=== PATIENT | female | born 1970 | race Caucasian/White ===

== ENCOUNTER 2023-10-17 15:35 | Emergency (ER) | payer BC, SELFPAY ==
[2023-10-17 15:38] VITALS: BP 127/80
--- NOTE | 2023-10-17 16:57 | ED.GENMED ---
History of Present Illness
<Sourav Crowe MD - Last Filed: 10/17/23 22:04>
General
Chief Complaint: Breathing Problem
Time Seen by Provider: 10/17/23 16:35
Travel History
Have you had any contact with someone who has COVID-19?: No
Do you have any symptoms of coronavirus? Fever > 100 degrees, chills, cough, shortness of breath, sore throat, loss of taste or smell, muscle aches, or headache?: No
<Clare Gonsalves PA-C - Last Filed: 10/17/23 22:23>
General
Source: patient
Exam Limitations: none
Nursing documentation reviewed up to this point in time: agreed with
History of Present Illness
History of Present Illness:
Patient is a 53-year-old female currently undergoing treatment for stage IV rectal cancer, history of DVT/PE presenting for evaluation of worsening shortness of breath. Symptoms started approximate last Tuesday and have been worsening since.
Symptoms are present both at rest and with exertion. She is having some epigastric abdominal pain and has had a few episodes of vomiting. She also endorses recent episode of constipation. She did take a laxative last night and was able to have
multiple bowel movements throughout the night. She does endorse some improvement in the symptoms since. She has had 2 episodes of blood in her stool last week but none over the past few days. She denies any chest pain, fever, urinary symptoms.
She denies any pain, swelling, redness in lower extremities. No recent travel
Of note�patient recently started an experimental trial for rectal cancer with infusions. She is unsure if the symptoms may be related to medication that she is receiving. She does report that the experimental trial drug her heart rate has
increased almost 30 bpm
Patient has had a history of a PE after hysterectomy many years ago. She is no longer on a blood thinner.
<Clare Gonsalves PA-C - Last Filed: 10/17/23 22:23>
Physical Exam
Physical Exam:
General: Chronically ill-appearing, nontoxic
Vitals: Tachycardic, otherwise vital signs stable afebrile O2 sat 99 on room air
HEENT: Atraumatic, normocephalic; pupils equal round reactive light bilaterally, sclera nonicteric bilaterally protecting airway
Neck: appears supple, no JVD
CV: Tachycardic, regular rhythm, no evidence of cyanosis
Resp: No evidence of respiratory distress, lungs clear bilaterally with out any wheezing, rales, rhonchi
Abd: Soft, mildly tender in epigastric region without rebound or guarding, bowel sounds present, non-distended; no CVA tenderness
Extremities: No deformities, no evidence of cyanosis or edema; DP pulses palpable and equal bilaterally
Neuro: alert and oriented x [address], speech normal, no focal motor deficit
Psych: Normal affect
Skin: Intact
Scores
<Sourav Crowe MD - Last Filed: 10/17/23 22:04>
PE Wells Score
Symptoms of DVT: No
No alternative diagnosis better explains the illness: No
Tachycardia with pulse > 100: Yes
Immobilization (>=3 days) or surgery within previous 4 weeks: No
Prior history of DVT or pulmonary embolism: Yes
Presence of hemoptysis: No
Presence of malignancy: Yes
Pulmonary Embolism Risk Score: 4.0
Probability of PE: Pt is moderate risk
<Clare Gonsalves PA-C - Last Filed: 10/17/23 22:23>
Heart Failure Risk
Heart Failure Risk Score: Not Applicable
PE Wells Score
Pulmonary Embolism Risk Score: 4.0
Probability of PE: Pt is moderate risk
PERC Rule Criteria
Age <50 years: No
HR <100 bpm: No
Room air oxygen sat >94%: Yes
History of DVT or PE: Yes
Recent trauma or surgery: No
Hemoptysis: No
Exogenous estrogen: No
Clinical signs suggestive of DVT: No
: No
Considered low risk for PE: No
PERC Score: 4
PE can be excluded by PERC: No
Course
<Sourav Crowe MD - Last Filed: 10/17/23 22:04>
Orders/Labs/Results
Orders:
Orders
10/17/23 15:41
Electrocardiogram (*1) Urgent
Reason for Study: Shortness of Breath
EKG- Treatment ONCE
10/17/23 17:04
Electrocardiogram (*1) Urgent
Reason for Study: Abdominal Pain
EKG- Treatment ONCE
10/17/23 17:05
CT Chest Pe Study Urgent
Comment:
Reason For Exam: Shortness of breath, hx PE, current malignancy
0.9% Sodium Chloride 1000 ml [Nss] 1,000 ml IV BOLUS
10/17/23 17:18
Complete Blood Count/With Diff Urgent
Comprehensive Metabolic Panel Urgent
Lipase Urgent
NT-proBNP Urgent
PTT Urgent
Prothrombin Time Urgent
Troponin I Urgent
10/17/23 18:43
Alteplase [Cathflo/Activase] 2 mg IV NOW STA
Abnormal Lab Results
10/17/23
17:18
RBC 3.13 L 10^6/uL
(4.20-5.40)
Hgb 9.0 L g/dL
(12.0-16.0)
Hct 27.1 L %
(37.0-47.0)
Absolute Lymphs (auto) 0.8 L 10^3/uL
(1.2-3.4)
Absolute Monos (auto) 0.8 H 10^3/uL
(0.1-0.6)
Lymphocytes % 16.2 L %
(20.5-51.1)
Monocytes % 16.0 H %
(1.7-9.3)
PT 16.2 H Sec
(11.4-14.6)
Sodium 133 L mmol/L
(135-145)
Creatinine 0.4 L mg/dL
(0.6-1.0)
Glucose 109 H mg/dl
(70-99)
Calcium 8.3 L mg/dl
(8.4-10.2)
Alkaline Phosphatase 264 H U/L
(38-126)
10/17/23 17:18
10/17/23 17:18
Vital Signs
Pulse: 103
Initial and Last Documented VS:
Initial Vital Signs
Temp Pulse Resp BP Pulse Ox
99.2 F 129 18 127/80 99
10/17/23 15:38 10/17/23 15:38 10/17/23 15:38 10/17/23 15:38 10/17/23 15:38
Last Documented Vital Signs
Temp Pulse Resp BP Pulse Ox
37.3 C 103 18 123/71 99
10/17/23 15:38 10/17/23 21:58 10/17/23 20:51 10/17/23 20:51 10/17/23 20:51
<Clare Gonsalves PA-C - Last Filed: 10/17/23 22:23>
Orders/Labs/Results
Orders:
Orders
10/17/23 15:41
Electrocardiogram (*1) Urgent
Reason for Study: Shortness of Breath
EKG- Treatment ONCE
10/17/23 17:04
Electrocardiogram (*1) Urgent
Reason for Study: Abdominal Pain
EKG- Treatment ONCE
10/17/23 17:05
CT Chest Pe Study Urgent
Comment:
Reason For Exam: Shortness of breath, hx PE, current malignancy
0.9% Sodium Chloride 1000 ml [Nss] 1,000 ml IV BOLUS
10/17/23 17:18
Complete Blood Count/With Diff Urgent
Comprehensive Metabolic Panel Urgent
Lipase Urgent
NT-proBNP Urgent
PTT Urgent
Prothrombin Time Urgent
Troponin I Urgent
10/17/23 18:43
Alteplase [Cathflo/Activase] 2 mg IV NOW STA
Abnormal Lab Results
10/17/23
17:18
RBC 3.13 L 10^6/uL
(4.20-5.40)
Hgb 9.0 L g/dL
(12.0-16.0)
Hct 27.1 L %
(37.0-47.0)
Absolute Lymphs (auto) 0.8 L 10^3/uL
(1.2-3.4)
Absolute Monos (auto) 0.8 H 10^3/uL
(0.1-0.6)
Lymphocytes % 16.2 L %
(20.5-51.1)
Monocytes % 16.0 H %
(1.7-9.3)
PT 16.2 H Sec
(11.4-14.6)
Sodium 133 L mmol/L
(135-145)
Creatinine 0.4 L mg/dL
(0.6-1.0)
Glucose 109 H mg/dl
(70-99)
Calcium 8.3 L mg/dl
(8.4-10.2)
Alkaline Phosphatase 264 H U/L
(38-126)
10/17/23 17:18
10/17/23 17:18
Vital Signs
Initial and Last Documented VS:
Initial Vital Signs
Temp Pulse Resp BP Pulse Ox
99.2 F 129 18 127/80 99
10/17/23 15:38 10/17/23 15:38 10/17/23 15:38 10/17/23 15:38 10/17/23 15:38
Last Documented Vital Signs
Temp Pulse Resp BP Pulse Ox
37.3 C 103 18 123/71 99
10/17/23 15:38 10/17/23 21:58 10/17/23 20:51 10/17/23 20:51 10/17/23 20:51
<Clare Gonsalves PA-C - Last Filed: 10/17/23 22:23>
MDM/Problems Addressed
Differential Diagnosis Includes:
PE, anemia, metastasis,pleural effusion, pericardial effusion, pneumonia, bronchitis
MDM/Problems Addressed:
Patient is a 53 year old female currently undergoing treatment for stage IV metastatic rectal cancer presenting with worsening dyspnea over the past 5 days. She is also describing a vague upper abdominal discomfort which she is attributing to either
constipation vs metastatic disease. Patient is tachycardic on arrival, but otherwise has stable vital signs. Physical exam as documented above. Hear rate tachycardic, regular rhythm. Lungs clear. No evidence fo DVT on exam. Will check basic labs,
PT/INR, troponin, Pro-bnp. Given history of PE and current risk factors - will check CTA chest. Patient declines analgesia at this time.
CBC significant for anemia with hbg of 9.0. Compared to patients most recent lab work drawn about 1 week ago with hgb of 9.3. Although minorly decreased - I do not suspect this to be the cause of her symptoms. CMP without any clinically significant
abnormalities. Troponin and pro-BNP negative. CTA chest pending.
At this point- case was signed out to attending physician.
Chronic conditions affecting care:
History of DVT/PE, stage IV rectal cancer with metastasis to lung, lymph nodes
<Clare Gonsalves PA-C - Last Filed: 10/17/23 22:23>
*Pulse Oximetry
Patient hypoxic: no
*EKG
Interpreted by ED Provider?: Yes
EKG Intrepretation Date: 10/17/23
Interpretation: abnormal
Comparison EKG: changes noted
Heart Rate: 110
Rate: tachycardiac
Rhythm: sinus
[place]: normal axis
Interval: normal interval
QRS Pattern: low voltage
Ischemia: no ischemia
*Tin Flipper Interpretation
Rate: [place]- N/A
*Critical Care Note
Total Time (30-74mins, 75-104mins- exclusive of procedures): Not Applicable
ED Attending Note
<Sourav Crowe MD - Last Filed: 10/17/23 22:04>
ED Attending Note
Patient seen and examined by attending physician: Yes
ED Attending Note:
HPI: 53-year-old female with past medical history of hyperlipidemia, DVT/PE not on anticoagulation, rectal cancer with extensive metastatic disease who presents to the emergency department for evaluation of shortness of breath. Patient has
metastatic rectal cancer she follows with [facility] here but has been on a clinical trial for treatment at [facility] in [place]. She has been receiving regular infusions last treatment was last week. She says since
her infusion last week she has noticed some increasing shortness of breath. She says that symptoms have been constant and slightly worsening over that period of time. She has not had any chest pain. She has not noticed any edema in her legs. She
denies any significant amount of coughing and has not had a fever or chills. She has had some upper abdominal discomfort which she says could be related to metastatic disease or constipation and has been relatively mild and stable. She did have 1
episode of bloody stools last week but no consistent blood in her stools. She denies any other complaints.
ROS: Positive for shortness of breath, abdominal pain; negative for chest pain, cough, fever, edema
Physical exam:
General: Awake, alert, oriented x3; no acute distress
Head: Normocephalic, atraumatic
Eyes: Conjunctiva normal, sclera anicteric
Throat: Airway intact, handling secretions
Neck: Trachea midline, supple without meningismus
Lungs: Clear to auscultation bilaterally, no wheezing, rales, rhonchi, breathing comfortably with no increased work of breathing, normal respiratory rate, normal pulse ox on room air
Heart: Tachycardia with regular rhythm, no murmurs, gallops, or rubs
Abd: Soft, non distended, nontender to deep palpation with no palpable masses
Neuro: Cranial nerves grossly intact, speech fluid
Skin: no rash
Extremities: No edema in extremities, equal pulses in all extremities
Differential diagnosis: PE, pneumonia, pneumothorax, anemia
Medical decision makin-year-old female presents for evaluation of increasing shortness of breath over the past week or so. She arrived was tachycardic but otherwise normal vitals. Exam as above. Labs were Sof-Yandy CBC which showed slight
anemia to 9.0�patient had lab work drawn as an outpatient last week which showed hemoglobin of 9.3 to this value is stable over the past week. Unlikely to account for symptoms. Her CMP shows no clinically significant abnormalities. Her troponin
and BNP were negative. She was sent for a CTA which showed increase in her pulmonary metastatic disease but no PE or other acute pathology. Increased metastatic disease could account for symptoms. No clear emergent pathology noted on her workup
here patient has remained stable on room air with no tachypnea. Her heart rate improved with some IV fluids. Regarding her abdominal discomfort she thinks it is likely from known metastatic disease and she has no significant tenderness�no
indication for emergent abdominal imaging at this point in time. I long discussion with patient�we offered admission for observation overnight but she feels well enough for discharge and no clear indication for admission at this point in time. I
did discuss with oncology team they recommended follow-up with patient's team at [facility]. Patient indicated that she will call tomorrow. Spoke about return precautions all questions answered.
Chronic conditions affecting care: Metastatic cancer
Acute exacerbation or progression of chronic illness: Acute worsening of pulmonary metastasis
History source: Patient,
Data reviewed: Records, imaging, labs
Medications/testing considered: N/A
Social determinants of health: Strong social support
Discussion with other providers: Oncology
Disposition: Offered admission but patient prefers discharge with outpatient follow-up
-
Portions of this chart may have been created with voice recognition software.� Occasional wrong word or��sound alike� substitutions may have occurred due to the inherent limitations of voice recognition software.
Discharge Plan
Departure
Patient Disposition: Home (Routine Discharge)
Date of Disposition: 10/17/23
Time of Disposition: 21:58
Patient with high blood pressure during this ER visit?: No
Discharge Problem:
Dyspnea
Instructions: Shortness of Breath (Dyspnea) (DC)
Prescriptions:
No Action
ibuprofen [Advil] 200 mg Tablet
600 mg PO Q4H
levothyroxine 25 mcg Tablet
25 mcg PO DAILY
cholecalciferol (vitamin D3) 100 mcg (4,000 unit) Capsule
100 mcg PO DAILY
Patient Comments:
Pt states 1000mgs daily??
tramadol 50 mg tablet
50 - 100 mg PO Q6HPRN PRN (Reason: moderate to severe) Qty: 40 0RF
Ativan
1 tab PO DAILY
Rx Instructions:
when on chemo
polyethylene glycol 3350 [Miralax] 17 gram Powder In Packet
17 g PO DAILY
omeprazole 40 mg Capsule,Delayed Release(Dr/Ec)
40 mg PO DAILY
ondansetron 8 mg Tablet,Disintegrating
8 mg PO Q8H PRN (Reason: nausea)
docusate sodium [Colace] 100 mg Capsule
100 mg PO DAILY
methylprednisolone 4 mg tablet
4 mg PO DAILY 4 Days Qty: 10 0RF
Rx Instructions:
4 tabs on 09/05, 3 tabs on 09/06, 2 tabs on 09/07, 1 tab on 09/08
Referrals:
UNKNOWN - PT DOES,NOT KNOW [Unknown Provider] -
Activity Restrictions/Additional Instructions:
Thank you for visiting the Emergency Department at [facility].
1. Please schedule a follow up appointment as directed. Call first thing tomorrow morning to make an appointment.
2. If indicated, please take your medications as instructed and indicated on discharge paperwork.
3. If any of your symptoms do not improve, or persist, or become more severe within 6-12 hours, please return to the emergency department for further care.
4. Please return to the emergency department if you develop a headache, neck pain/stiffness, fever greater than 100.4F, chest pain, shortness of breath, persistent nausea, vomiting, slurred speech, difficulty walking, numbness/tingling, weakness,
signs of infection or any other symptoms that are worrisome to you.
Please call [phone] if you have any questions.
Interventions
Interventions:
*Risk Screen - Suicide Last Done: 10/17/23 15:38
*General Assessment Last Done: 10/17/23 15:38
*Neglect/Abuse Screening Last Done: 10/17/23 15:38
ED- Fall Risk Assessment Last Done: 10/17/23 16:39
*ED COVID-19 Vaccine History Last Done: 10/17/23 15:38
*Nursing Disposition Last Done: 10/17/23 22:04
ED- Cardiac Assessment Last Done: 10/17/23 16:39
ED- Pulmonary Assessment Last Done: 10/17/23 16:39
[2023-10-17] MEDS: NSS 1000 IV (17:19)
--- NOTE | 2023-10-17 18:07 | VATNOTE ---
extremely difficult to retract enough blood for a waste, flushed multiple times, coughed, right arm moved etc. PCN informed cathflo needed to be ordered and peripheral stick for labs to be drawn.
[2023-10-17 18:09] LABS: % Basophils 0.6 % (0-2); % Immature Granulocytes 0.2 % (0-0.5); % Lymphocytes 16.2 % (20.5-51.1); Absolute Eosinophils 0.1 10^3/uL (0-0.7); Absolute Lymphocytes 0.8 10^3/uL (1.2-3.4); Absolute Monocytes 0.8 10^3/uL (0.1-0.6); Absolute Neutrophils 3.2 10^3/uL (1.4-6.5); Hematocrit 27.1 % (37.0-47.0); Mean Corp Hgb Conc. 33.2 g/dL (33.0-37.0); Mean Corpuscular Hgb 28.8 pg (27.0-31.0); Mean Corpuscular Volume 86.6 fL (81.0-99.0); Mean Platelet Volume 10.1 fL (7.4-10.4); Nucleated Red Blood Cells % 0 %; Platelet Count 156 10^3/uL (130-400); Red Blood Cell Count 3.13 10^6/uL (4.20-5.40); Red Cell Dist. Width 13.2 % (11.5-14.5); White Blood Cell Count 4.9 10^3/uL (4.8-10.8)
[2023-10-17 18:18] LABS: INR 1.32; PT 16.2 Sec (11.4-14.6)
[2023-10-17 18:19] LABS: APTT 28.9 Sec (23.4-35.0)
[2023-10-17 18:26] LABS: ALT (SGPT) 14 U/L (0-35); AST (SGOT) 21 U/L (14-36); Albumin 3.5 g/dl (3.5-5.0); Alkaline Phosphatase 264 U/L (38-126); Blood Urea Nitrogen 13 mg/dl (7-17); Calcium 8.3 mg/dl (8.4-10.2); Carbon Dioxide 25 mmol/L (22-30); Chloride 103 mmol/L (98-107); Glucose 109 mg/dl (70-99); Lipase 35 U/L (23-300); Potassium 4.3 mmol/L (3.5-5.1); Sodium 133 mmol/L (135-145); Total Bilirubin 0.4 mg/dl (0.2-1.3); Total Protein 6.9 g/dl (6.3-8.2); eGFR > 60.00
[2023-10-17 18:32] LABS: NT-proBNP 26.8 pg/ml; Troponin I < 0.012 ng/ml
[2023-10-17] MEDS: CATHFLO/ACTIVASE IV (19:04)
[2023-10-17] MEDS: CATHFLO/ACTIVASE 2 MG IV (19:19)
--- NOTE | 2023-10-17 20:30 | VATNOTE ---
CathFlo given as ordered. Port now flushes easily and has a brisk blood return.
[2023-10-17 20:51] VITALS: BP 123/71
== END 2023-10-17 22:21 | disposition home or self-care (01) ==
LOC: EMR 15:35
PROVIDERS: Physician Assistant; EMERGENCY PHYSICIAN Emergency Medicine; FAMILY PHYSICIAN Family Medicine
DX: R06.09 Other forms of dyspnea (principal); D64.9 Anemia, unspecified; E78.5 Hyperlipidemia, unspecified
CPT/HCPCS: 99285; 96374; 96361; 71275; 80053; 83690; 83880; 84484; 85025; 85610; 85730; 93005; J2997; Q9967

== ENCOUNTER 2023-10-23 23:10 | Inpatient (IN) | payer BC, SELFPAY ==
[2023-10-23 17:51] VITALS: BP 105/64
[2023-10-23 18:10] VITALS: BP 102/73
[2023-10-23 18:11] VITALS: BMI 27.4
--- NOTE | 2023-10-23 18:29 | ED.GENMED ---
History of Present Illness
General
Chief Complaint: Breathing Problem
Time Seen by Provider: 10/23/23 18:06
Travel History
Have you had any contact with someone who has COVID-19?: No
Do you have any symptoms of coronavirus? Fever > 100 degrees, chills, cough, shortness of breath, sore throat, loss of taste or smell, muscle aches, or headache?: Yes
Symptoms:: sob
History of Present Illness
History of Present Illness:
53-year-old female with history of metastatic rectal cancer presents the emergency department due to shortness of breath. Patient is currently following with a trial of immunotherapy at the [facility], received a trial drug of
immunotherapy 2 weeks ago. She states she had progressive worsening shortness of breath, was seen here 6 days ago and had a CT angiogram of the chest which ruled out pulmonary embolism but did show progression of her disease. She has had continued
worsening symptoms particular with exertion since that time was encouraged to come back to the hospital by her oncology team. She denies any chest pain or shortness of breath at rest. She does report right flank and right thoracic back pain that
has been gradually worsening throughout this time as well. Denies any nausea or vomiting. Does feel her appetite and activity has been somewhat diminished. Family is concerned that she appears to be jaundiced today, she also notes dark urine.
She has chronic rectal bleeding secondary to her malignancy, does not note any worsening of this over the past several days.
Review of Systems
Review of Systems
Allergies reviewed?: Yes
All Other Systems: ROS reviewed and negative except as documented in HPI and ROS
Phy Exam
Physical Exam
Physical Exam:
GEN: No acute distress, generally pale
Eyes: PERRLA, EOMs intact, trace scleral icterus
HENT: NCAT, oral mucosa moist, no JVD
Lungs: CTAB, no wheezes, rales, rhonchi, normal chest wall excursion
Cardiac: Tachycardic, regular, no murmurs, radial pulses 2+ bilaterally
Abdomen: S, NT, ND, NABS, no masses or hepatosplenomegaly
Neuro: AO x 3
MSK: No gross deformity or ecchymosis. Port-A-Cath in the right upper chest wall, site is clean, no lower extremity edema
Skin: No rashes, petechiae. Generally pale
Psych: Calm, cooperative, proper hygiene
Scores
Heart Failure Risk
Heart Failure Risk Score: Not Applicable
Course
Orders/Labs/Results
Orders:
Orders
10/23/23 17:52
EKG [Electrocardiogram (*1)] Urgent
Reason for Study: Shortness of Breath
EKG- Treatment ONCE
10/23/23 18:28
0.9% Sodium Chloride 1000 ml [Nss] 1,000 ml IV BOLUS
10/23/23 18:48
Type+Screen Urgent
Complete Blood Count/With Diff Urgent
Comprehensive Metabolic Panel Urgent
Direct Bilirubin Urgent
Comment: ADD ON
LDH Urgent
Comment: ADDED
Manual Differential Urgent
Reticulocyte Count Urgent
Comment: ADDED
Serum Osmolality Urgent
Comment: ADD ON
10/23/23 19:26
US Abdomen Complete/Upper Urgent
Comment:
Reason For Exam: transaminitis/elevated T bili
10/23/23 19:52
Add On- LAB Urgent
Tests Added?: serum osmolality, direct bilirubin
10/23/23 20:29
CT Chest W/o Iv Contrast Urgent
Comment:
Reason For Exam: SOB
10/23/23 20:37
Troponin I Urgent
10/23/23 20:39
Prothrombin Time Urgent
10/23/23 20:57
Add On- LAB Urgent
Tests Added?: reticulocyte count; LDH
10/23/23 20:58
Urine Sodium Urgent
Date Specimen was Collected: 10/24/23
Time Specimen was Collected: 06:26
10/23/23 20:59
Osmolality, Random Urine Urgent
Date Specimen was Collected: 10/24/23
Time Specimen was Collected: 05:17
Urinalysis Reflex To Culture Urgent
Date Specimen was Collected: 10/24/23
Time Specimen was Collected: 05:17
10/23/23 21:34
Ondansetron Orally Disint [Zofran Odt (Orally Disintegrating)] 4 mg .ROUTE .STK-MED ONE
10/23/23 21:35
Ondansetron Orally Disint [Zofran Odt (Orally Disintegrating)] 4 mg PO NOW STA
10/23/23 22:54
Admit/Transfer Patient As Directed
Co-Sign Provider:
Level of Care: Inpatient admission
Assign to:: Telemetry
Physician / Group: Nasim
Diagnosis: SOB, Metastatic Rectal Cancer
Reason for Telemetry: Arrhythmia
Date to Stop Telemetry: 10/26/23
Time to Stop Telemetry: 11:00
Reason for Hospitalization: SOB, Metastatic Rectal Cancer
Expected length of stay greater than two midnights?: Yes
ELOS- Estimated Length of Stay in days: 3
I certify the patient meets the requirements for IP care: Yes
10/23/23 22:56
Code Status As Directed
Resuscitation Status: Full Code
10/24/23 00:05
HYDROmorphone [Dilaudid] 0.5 mg IV Q4HPRN PRN
Lactated Ringers [Lr] 1,000 ml IV 100 mls/hr
Ondansetron Injectable [Zofran] 4 mg IV Q6HPRN PRN
Tramadol HCl [Ultram] 100 mg PO Q6HPRN PRN
10/24/23 00:05
Consult Notification Routine
Specialty to Notify: Gastroenterology
Date consulting provider notified: 10/24/23
Time consulting provider notified: 08:55
Notified:: Provider
Comment: TT to Dr Powers
Consult Notification Routine
Specialty to Notify: Oncology
Date consulting provider notified: 10/24/23
Time consulting provider notified: 08:54
Notified:: Provider
Comment: TT to Dr Schwarz
GASTROINTESTINAL CONSULT Routine
Consulting Provider: Yadira Powers
Was physician already notified: No
Reason for consult: Rectal Bleeding
ONCOLOGY CONSULT Routine
Consulting Provider: Patrick Javed
Was physician already notified: No
Reason for consult: Rectal Cancer / SOB
Bladder Scan As Directed
Follow Bladder Retention/Intermittent Cath Algorithm?: Yes
PRN if no void in __ hours: 6
Frequency: Per Retention Algorithm
If Bladder Scan Result >: 400
then:: Straight cath
Hemetest Stools As Directed
I/O [Intake/ Output] As Directed
Frequency: Per unit guidelines
Orthostatic Vital Signs As Directed
Orthostatic VS Frequency: BID
Pneumatic Compression Sleeves As Directed
Type: Knee high
Straight Cath As Directed
Frequency: Per Retention Algorithm
Additional Instructions: straight cath as needed per acute urinary retention algorithm for 24 hrs
Additional Instructions: for bladder scan greater than 400 mL
Vital Signs As Directed
Frequency: Per unit guidelines
Weight As Directed
Frequency: Daily
Oxygen Therapy [O2 Therapy] [RESP] Routine
Titrate/Wean O2 to maintain O2 sat greater than (%): 94
Rx Incentive Spirometry [RESP] Routine
Frequency: q1h while awake
Ot Eval And Treat Routine
PT Consult [Pt Eval And Treat] Routine
Activity Level: Ambulate
With Assistance
DX Deep Vein Thrombosis Video Routine
10/24/23 00:45
Ferritin Routine
Haptoglobin [S] Routine
Iron Routine
TSH Reflex To Free T4 Routine
Total Iron Binding Routine
Troponin I Q6H
Vitamin B12 Routine
10/24/23 05:59
Complete Blood Count/No Diff IN AM
Troponin I Q6H
10/24/23 06:00
EKG [Electrocardiogram (*1)] IN AM
Reason for Study: Chest Pain
Regular
At Your Request: Full Participation
Does patient need a safe tray?: No
10/26/23 11:00
DC Protocol for Telemetry ONCE
Abnormal Lab Results
10/23/23 10/23/23
18:48 20:39
WBC 4.7 L 10^3/uL
(4.8-10.8)
RBC 2.99 L 10^6/uL
(4.20-5.40)
Hgb 8.5 L g/dL
(12.0-16.0)
Hct 25.5 L %
(37.0-47.0)
Absolute Lymphs (auto) 0.5 L 10^3/uL
(1.2-3.4)
Absolute Monos (auto) 1.1 H 10^3/uL
(0.1-0.6)
Lymphocytes % 10.5 L %
(20.5-51.1)
Monocytes % 23.6 H %
(1.7-9.3)
Lymphocytes (Manual) 9 L %
(20-51)
Monocytes (Manual) 21 H %
(2-9)
Retic Count 3.0 H %
(0.4-2.8)
PT 18.0 H Sec
(11.4-14.6)
Sodium 128 L mmol/L
(135-145)
Chloride 96 L mmol/L
(98-107)
Creatinine 0.4 L mg/dL
(0.6-1.0)
Glucose 125 H mg/dl
(70-99)
Serum Osmolality 272 L mOsm/kg
(275-300)
Calcium 8.0 L mg/dl
(8.4-10.2)
Total Bilirubin 5.4 H mg/dl
(0.2-1.3)
Direct Bilirubin 4.4 H mg/dl
(0.0-0.4)
AST 177 H U/L
(14-36)
ALT 211 H U/L
(0-35)
Alkaline Phosphatase 810 H U/L
(38-126)
Lactate Dehydrogenase 340 H U/L
(120-246)
Total Protein 6.2 L g/dl
(6.3-8.2)
Albumin 3.0 L g/dl
(3.5-5.0)
10/23/23 18:48
10/23/23 18:48
Vital Signs
Initial and Last Documented VS:
Initial Vital Signs
Temp Pulse Resp BP Pulse Ox
98.1 F 128 17 105/64 95
10/23/23 17:51 10/23/23 17:51 10/23/23 17:51 10/23/23 17:51 10/23/23 17:51
Last Documented Vital Signs
Temp Pulse Resp BP Pulse Ox
99.3 F 125 16 96/60 94
10/24/23 14:50 10/24/23 17:00 10/24/23 17:00 10/24/23 17:00 10/24/23 17:00
MDM/Problems Addressed
MDM/Problems Addressed:
Patient's shortness of breath is likely multifactorial, she does have mild downtrending of her hemoglobin likely due to her rectal bleeding. She has known progression of her pulmonary metastases which is likely the main laundry route driver of shortness of
breath, do not feel it is prudent to reimage for pulmonary embolism given normal study from several days ago, non contrast CT to be done to evaluate for pneumonitis per onc recommendations. She has noted to have transaminitis with
hyperbilirubinemia which could indicate hemolytic anemia versus obstructive jaundice. Retic count/LDH in process. She is also hyponatremic which is likely hypovolemic in nature.
Ultimately the patient will require admission regardless of the findings of the pending CT chest, abdominal ultrasound, and resulting labs. Will sign out to Dr Olvera pending remainder of workup.
Comment
Comment:
EKG independently interpreted by me shows a sinus tachycardia at a rate of [address] changes concerning for ischemia
*Critical Care Note
Total Time (30-74mins, 75-104mins- exclusive of procedures): Not Applicable
Update Note
Update Note:
2046: Received a call from patient's oncologist at the [facility] Dr. Cristino Romero, patient is on anti-PDL1 drug. He informs me that the anticipated side effects of this drug could include pneumonitis, myocarditis, autoimmune hepatitis. Request that we
obtain a CT noncontrast of the chest to evaluate for pneumonitis as well as cardiac troponin to evaluate for myocarditis. I did discuss with him the patient's significantly acutely elevated liver enzymes and hyperbilirubinemia, he does note that
hemolytic anemia is an uncommon complication of these however given that it is a direct predominant hyperbilirubinemia, this is likely not the case, could be progression of hepatic lesions in which case she may require GI intervention for ERCP and
possible biliary stenting. If identified to have pneumonitis and/or myocarditis would be recommended to start on high-dose steroids.
Dr Cristino Romero requests update with clinical findings later today, cell phone # [phone]
ED Attending Note
-
Portions of this chart may have been created with voice recognition software.� Occasional wrong word or��sound alike� substitutions may have occurred due to the inherent limitations of voice recognition software.
Discharge Plan
Departure
Patient Disposition: Admit
Date of Disposition: 10/23/23
Time of Disposition: 21:05
Admit to: Med/Surg
Presentation/result/management discussed w/ accepting MD/DO: Hospitalist
Discharge Problem:
Hyperbilirubinemia, Exertional shortness of breath, Metastasis from rectal cancer, Acute hyponatremia
Interventions
Interventions:
*Risk Screen - Suicide Last Done: 10/23/23 18:15
*General Assessment Last Done: 10/23/23 18:15
*Neglect/Abuse Screening Last Done: 10/23/23 18:15
ED- Fall Risk Assessment Last Done: 10/24/23 04:08
*ED COVID-19 Vaccine History Last Done: 10/23/23 18:15
*Nursing Disposition Last Done: 10/24/23 04:08
ED- Cardiac Assessment Last Done: 10/23/23 18:16
ED- Pulmonary Assessment Last Done: 10/23/23 18:16
Discharge Date and Time
Discharge Date/Time: 10/24/23 04:08
[2023-10-23 18:59] LABS: % Basophils 0.4 % (0-2); % Eosinophils 3.4 % (0-6); % Immature Granulocytes 0.4 % (0-0.5); % Lymphocytes 10.5 % (20.5-51.1); % Monocytes 23.6 % (1.7-9.3); % Neutrophils 61.7 % (42.2-75.2); Absolute Eosinophils 0.2 10^3/uL (0-0.7); Absolute Lymphocytes 0.5 10^3/uL (1.2-3.4); Absolute Monocytes 1.1 10^3/uL (0.1-0.6); Absolute Neutrophils 2.9 10^3/uL (1.4-6.5); Hematocrit 25.5 % (37.0-47.0); Hemoglobin 8.5 g/dL (12.0-16.0); Mean Corp Hgb Conc. 33.3 g/dL (33.0-37.0); Mean Corpuscular Hgb 28.4 pg (27.0-31.0); Mean Corpuscular Volume 85.3 fL (81.0-99.0); Mean Platelet Volume 10.2 fL (7.4-10.4); Nucleated Red Blood Cells % 0 %; Platelet Count 144 10^3/uL (130-400); Red Blood Cell Count 2.99 10^6/uL (4.20-5.40); Red Cell Dist. Width 13.9 % (11.5-14.5); White Blood Cell Count 4.7 10^3/uL (4.8-10.8)
[2023-10-23 19:00] VITALS: BP 107/70
[2023-10-23 19:13] LABS: ALT (SGPT) 211 U/L (0-35); AST (SGOT) 177 U/L (14-36); Alkaline Phosphatase 810 U/L (38-126); Blood Urea Nitrogen 11 mg/dl (7-17); Carbon Dioxide 25 mmol/L (22-30); Chloride 96 mmol/L (98-107); Estimated Creatinine Clearance 107 ml/min; Glucose 125 mg/dl (70-99); Potassium 3.6 mmol/L (3.5-5.1); Sodium 128 mmol/L (135-145); Total Bilirubin 5.4 mg/dl (0.2-1.3); Total Protein 6.2 g/dl (6.3-8.2); eGFR > 60.00
[2023-10-23] MEDS: NSS 1000 IV (19:16)
[2023-10-23 20:12] VITALS: BP 101/65
[2023-10-23 20:13] LABS: Absolute Neutrophils -Man Diff 3.1 10^3/uL (1.4-6.5); Band Neutrophils 0 % (0-3); Eosinophils 3 % (0-6); Lymphocytes 9 % (20-51); Monocytes 21 % (2-9); Normal RBC Morphology Yes; Platelets Checked Yes; Segmented Neutrophils 67 % (42-75); Total Cells Counted 100
[2023-10-23 20:18] LABS: Osmolality Serum 272 mOsm/kg (275-300)
[2023-10-23 20:20] LABS: Direct Bilirubin 4.4 mg/dl (0.0-0.4)
[2023-10-23 21:00] VITALS: BP 100/60
[2023-10-23 21:11] LABS: Troponin I < 0.012 ng/ml
[2023-10-23 21:31] LABS: LDH 340 U/L (120-246)
[2023-10-23] MEDS: ZOFRAN ODT (ORALLY DISINTEGRATING) 4 MG PO (21:40)
--- NOTE | 2023-10-23 23:02 | HPS.HSE ---
Family Physician
-
Family Physician: Iris Franco,
Chief Complaint
-
SOB
History of Present Illness
Patient is a 53y F with PMH significant for metastatic rectal cancer who presents to ED complaining of SOB. Patient is currently enrolled in a trial at [facility] with Cristino Askew ([phone]). She states that she received her second dose of an
IV infusion (bintrafusp) abut 2 weeks ago. The following day she began to feel SOB. Her symptoms have progressed since that time. She was seen here in the ED on 10/16 and evaluated with labs, CTA chest, etc. All was unremarkable and patient was
discharged to home for follow-up with her Oncology physicians. Patient states that she has since discontinued the oral component of her trial regimen (entinostat). She has also discontinued her usual T4 supplementation and Prilosec. She denies
introducing any new medications or supplements since her 10/16 visit.
Patient states that her dyspnea has continued to progress. She has SOB mostly with activity - but very little activity will trigger this.
In addition, she has developed R flank discomfort / low back pain. She also has noted increased rectal bleeding. Reports that she will have occasional streaks of blood with BM / on toilet paper. But this has increased recently to include large
clots and amounts of blood.
Patient complains of feeling lightheaded / dizzy.
She denies any fevers or chills. No coughing. She has occasional nausea with non-bloody, bilious emesis - but this is reportedly a chronic issue that is relatively unchanged.
Patient has also noted that her resting hear rate has increased since she began this new med trial. Her resting pulse has gone from 80s to 90s to 100s to 110s over the past few weeks.
No other new or current complaints or concerns.
Medical History
Past Medical History
Past Medical History: Reports Other
Additional Past Medical History:
Metastatic Rectal Cancer
Hypothyroidism
Pituitary Adenoma
History of DVT / PE
GERD
Endometriosis
Past Surgical History: Reports Other
Additional Past Surgical History:
NOAM
Port Placement
Social History
Tobacco: Former Smoker (Quit smoking 2 years ago. Approx 30 pack years total use.)
Alcohol: None
Drug: None
Family History
Family History: Adopted
Allergies / Home Medications
Allergies reflects when Allergies were last updated in [email or web address].
Home Medications with original date entered in [email or web address]
Allergy/Medication List:
Allergies
Allergy/AdvReac Type Severity Reaction Status Date / Time
aprepitant [From Emend] Allergy Anaphylaxis Verified 10/23/23 17:51
codeine Allergy Vomiting Verified 10/23/23 17:51
fosaprepitant [From Emend] Allergy Anaphylaxis Verified 10/23/23 17:51
hydromorphone [From Dilaudid] Allergy Nausea Verified 10/23/23 17:51
Home Medications
tramadol 50 mg tablet 50 - 100 mg PO Q6HPRN PRN moderate to severe #40 tabs 04/09/22
docusate sodium 100 mg capsule (Colace) 100 mg PO DAILY Constipation 09/03/22
ondansetron 8 mg disintegrating tablet 8 mg PO Q8H PRN nausea 09/03/22
famotidine 20 mg tablet 20 mg PO BID PRN Indigestion 10/23/23
Review of Systems
-
History Source: Patient
A 12 point ROS was completed and negative except as noted: Yes
Constitutional: Reports Fatigue; Denies Fever or Chills
EENT: Denies Sore Throat
Respiratory: Reports Trouble Breathing; Denies Cough or Hemoptysis
Cardiac: Denies Chest Pain, Diaphoresis, Palpitations or Syncope
Abdomen/GI: Reports Abdominal Pain, Nausea, Vomiting, Bloody Stools and Anorexia; Denies Diarrhea
: Reports Flank Pain; Denies Dysuria or Frequency
Musculoskeletal: Denies Joint Pain or Edema
Neurological: Denies Dizzy or Headache
Psych: Denies Depression or Anxiety
Physical Exam
Vital Signs
Vital Signs
Temp Pulse Resp BP Pulse Ox
98.1 F 100 17 101/65 96
10/23/23 17:51 10/23/23 20:45 10/23/23 20:45 10/23/23 20:12 10/23/23 20:45
Physical Exam
General: Other (53y F in no acute distress. Mild jaundice / scleral icterus.)
HEENT: PERRLA and Other (Dry MM.)
Respiratory: Other (Few bibasilar rales - otherwise clear.)
Cardiac: S1/S2 and Regular Rhythm; No Murmur
GI: Soft, Non Distended, Normal Bowel Sounds and Other (Minimal tenderness in RUQ / epigastric region.)
Musculoskeletal: No Clubbing, No Cyanosis and No Edema
Neuro: AO x 3
Laboratory Results
-
10/23/23 18:48
10/23/23 18:48
Laboratory Results
PT 18.0 Sec (11.4-14.6) H 10/23/23 20:39
INR 1.50 10/23/23 20:39
Total Bilirubin 5.4 mg/dl (0.2-1.3) H 10/23/23 18:48
AST 177 U/L (14-36) H 10/23/23 18:48
ALT 211 U/L (0-35) H 10/23/23 18:48
Alkaline Phosphatase 810 U/L (38-126) H 10/23/23 18:48
Troponin I < 0.012 ng/ml 10/23/23 20:37
Impression/Plan
-
A/P: Patient is a 53y F with PMH significant for metastatic rectal cancer on drug trial at [facility] who presents to ED for evaluation of worsening dyspnea.
Subjective Dyspnea
- Observe overnight for further evaluation and treatment.
- Unclear specific etiology with multiple potential contributing factors including anemia, progressing malignancy, med effect, etc.
- Recent CTA negative for PE. No evidence of acute infectious process or pneumonitis by imaging.
- Troponin unremarkable - will continue to trend.
- Not hypoxemic. In no distress at rest.
- Check Echo for evidence of cardiac compromise potentially related to new meds.
- IVF support for apparent hypovolemia due to poor PO intake, N/V, etc.
- Evaluate rectal bleeding / anemia as noted below.
- ? if symptoms related to infusion of bintrafusp given timing (onset immediately following her second dose of this med).
- Oncology evaluation.
- Coordinate care with [facility] - contact Dr. Cristino Romero ([phone]).
- Follow for any new / worsening symptoms.
Normocytic Anemia
Anemia of Chronic Disease
Acute Blood Loss Anemia
- Hgb 8.5 compared to 9 one week ago and 10.6 prior to that.
- Patient does endorse increased rectal bleeding which certainly may explain worsened anemia.
- Minimal elevation in LDH and normal red cell morphology. No evidence of Abs on type and screen.
- Follow H&H for changes. Consider transfusion if Hgb < 7 or worsening symptoms without other etiology.
- GI evaluation re: rectal bleeding.
- Known rectal cancer with metastases and history of polypectomy, XRT.
Abnormal LFTs
Direct Hyperbilirubinemia
- Unclear etiology. Abrupt increase compared to labs done 10/16.
- No new meds in that time per patient.
- Some sludge noted on US, but no evidence of obstruction / ductal dilation / etc.
- ? med effect as noted above.
- Monitor for changes in LFTs.
- GI and Oncology evals as noted.
Tachycardia
- Worsening tachycardia over the past few weeks per patient.
- May be contributing to subjective dyspnea with exertion.
- IVF support for suspected degree of hypovolemia.
- Monitor on telemetry.
- Check Echo as noted above.
Hyponatremia
Hypothyroidism
- Likely combination of hypovolemia as noted above and under / un-treated hypothyroidism as patient discontinued her T4 supplementation.
- IVF support overnight as noted.
- Restart T4 supplementation at usual 25mcg dose.
- Follow for improvement in labs / lytes.
Chronic Pain Syndrome
- Secondary to malignancy.
- Continue pain control with tramadol +/- Dilaudid as needed for more severe pain.
- Bowel regimen to prevent constipation.
DVT Prophylaxis
History of DVT / PE
- CTA 10/16 was negative for PE.
- Hold pharmacologic therapy given rectal bleeding.
- SCDs
Code Status: Full
[2023-10-24] VITALS (30 sets, daily range): BP systolic 70–133; BP diastolic 42–74; PULSE 118–139; O2SAT 98; BMI 28.1
[2023-10-24] MEDS: ULTRAM 100 MG PO ×4 (00:28→21:40)
[2023-10-24] MEDS: LR 1000 IV ×4 (00:36→21:22)
[2023-10-24 01:07] LABS: Iron 47 ug/dl (37-170)
[2023-10-24 01:17] LABS: Percent Saturation 21 % (20-50); Total Iron Binding Capacity 220 ug/dl (265-497)
[2023-10-24 01:20] LABS: Troponin I < 0.012 ng/ml
[2023-10-24 01:58] LABS: Vitamin B12 617 pg/ml (239-931)
[2023-10-24] MEDS: CALDOLOR 104 MG IV ×2 (05:39→20:14)
[2023-10-24 05:40] LABS: Osmolality Urine 499 mOsm/kg (300-900)
[2023-10-24] MEDS: SYNTHROID 25 MCG PO (05:40)
[2023-10-24 05:50] LABS: Urine Albumin Trace (Neg - Trace); Urine Bilirubin 3+ (Negative); Urine Character Clear (Clear); Urine Color Amber; Urine Glucose Negative (Negative); Urine Ketone 3+ (Negative); Urine Leukocyte Trace (Negative); Urine Nitrite Negative (Negative); Urine Occult Blood Trace (Negative); Urine Specific Gravity 1.015 (<1.030); Urine Urobilinogen 3+ (Neg - 1+); Urine pH 6.5 (5.0-9.0)
[2023-10-24 06:20] LABS: Hematocrit 25.7 % (37.0-47.0); Hemoglobin 8.3 g/dL (12.0-16.0); Mean Corp Hgb Conc. 32.3 g/dL (33.0-37.0); Mean Corpuscular Hgb 28.2 pg (27.0-31.0); Mean Corpuscular Volume 87.4 fL (81.0-99.0); Mean Platelet Volume 10.5 fL (7.4-10.4); Platelet Count 148 10^3/uL (130-400); Red Blood Cell Count 2.94 10^6/uL (4.20-5.40)
[2023-10-24 06:21] LABS: Urine Bacteria Few (Negative)
--- NOTE | 2023-10-24 06:35 | PTCARENOTE ---
Patient received from ED via stretcher. She was oriented to room and surroundings. St on tele HR 120's. T 101.2 Caldolor as per order. Patient states she has been unable to void. Bladder scan for 536ml and straight cath for 550ml tea colored
urine. Specimen to lab. IVF per order. Breath sounds are CTA b/l. 97 % on room air. Sm amount blood from rectum continues. Patient sleeping quietly at this time.
[2023-10-24 06:40] LABS: Troponin I < 0.012 ng/ml
[2023-10-24 06:49] LABS: ALT (SGPT) 192 U/L (0-35); AST (SGOT) 173 U/L (14-36); Albumin 2.9 g/dl (3.5-5.0); Alkaline Phosphatase 915 U/L (38-126); Blood Urea Nitrogen 9 mg/dl (7-17); Calcium 8.2 mg/dl (8.4-10.2); Carbon Dioxide 25 mmol/L (22-30); Chloride 95 mmol/L (98-107); Direct Bilirubin 5.6 mg/dl (0.0-0.4); Estimated Creatinine Clearance 116 ml/min; Glucose 100 mg/dl (70-99); Potassium 3.9 mmol/L (3.5-5.1); Sodium 130 mmol/L (135-145); Total Bilirubin 6.6 mg/dl (0.2-1.3); Total Protein 6.2 g/dl (6.3-8.2); eGFR > 60.00
[2023-10-24 07:03] LABS: Urine Sodium 78 mmol/L (30-90)
[2023-10-24] MEDS: NSS (PRESERVATIVE FREE) 10 ML IV (08:28)
[2023-10-24] MEDS: PROTONIX IV 40 MG IV (08:29)
--- NOTE | 2023-10-24 08:53 | CON.ONC ---
Addendum entered and electronically signed by Rola Schwarz MD 10/24/23 18:00:
Pt seen and examined, chart reviewed,
Agree with H&P as per KESHIA Juliana.
Etiology of increase dyspnea is unclear: CT chest no pneumonitis and pulm nodules appear stable, sat 98%/RA. Normal CK and troponin not consistent with myocarditis. ECHO today is unremarkable.
Clinical picture significant only for sinus tach, orthostasis, stable anemia.
Cardiology seeing pt for tachycardia which may be contributing to shortness of breath.
Original Note:
Impression
Impression
Metastatic rectal cancer, hx polypectomy and XRT on Bintrafusp clinical trial ([facility] in [place], Dr. Romero)
Acute severe dyspnea/shortness of breath
Concern for acute pneumonitis secondary to Bintrafusp therapy
Concern for hemolytic anemia
Possible hepatotoxicity from PD-L1 inhibitor
Round lesion of right lobe of liver seen on imaging
Acute fevers
Tachycardia
Hypotension/orthostasis
Orthopnea
Abnormal LFTs
Jaundice
Hypocalcemia
Hyponatremia
Abdominal pain
Increased rectal bleeding
Plan
Plan
10/23 WBC 4.0, Hgb 8.3, Hct 25.7, PLT 148
Transfuse as needed to maintain Hgb >7.5, PLT >20
Monitor CBC w/ diff daily (baseline Hgb 10-11)
Unable to participate in PT/OT due to orthostasis and work of breathing
Consider initiation of high-dose steroids
Monitor for bleeding, neutropenia
No role for IV iron at this time
Infectious work up in progress, monitor fevers
Additional imaging per GI: MRI/MRCP
Pain management, supportive care
Emotional support
Dr. Cristino Romero contact information: cell phone # [phone]
Per ER ducmentation: 20:47: Received a call from patient's oncologist at the [facility] Dr. Cristino Romero, patient is on anti-PDL1 drug.�He informs me that the anticipated side effects of this drug could include pneumonitis, myocarditis, autoimmune
hepatitis.� Request that we obtain a CT noncontrast of the chest to evaluate for pneumonitis as well as cardiac troponin to evaluate for myocarditis.� I did discuss with him the patient's significantly acutely elevated liver enzymes and
hyperbilirubinemia, he does note that hemolytic anemia is an uncommon complication of these however given that it is a direct predominant hyperbilirubinemia, this is likely not the case, could be progression of hepatic lesions in which case she may
require GI intervention for ERCP and possible biliary stenting.� If identified to have pneumonitis and/or myocarditis would be recommended to start on high-dose steroids.
Patient History
History of Present Illness
Gillian Ramos is a pleasant 53 year old female with metastatic rectal cancer well-known to Dr. Singh with [facility]. She had previously been receiving FOLFIRI therapy as second-line treatment, however, she developed acute chest tightness during
Irinotecan infusion which required discontinuation. She is currently enrolled in a clinical trial at the [facility] with Dr. Cristino Romero in [place]. She reports she received her second IV infusion of Bintrafusp
approximately 2 weeks ago. She tolerated the first infusion without issue. She states following the second treatment, she began to experience a sudden onset of acute symptoms most notably shortness of breath. She presented to the ER last evening,
10/22, with complaints of shortness of breath and dyspnea. She reports profound dyspnea with minimal exertion or activity. She reports difficulty breathing if lying flat. She also reports new onset of right flank, low back pain, increased rectal
bleeding with clots, and dizziness/lightheadedness. Her rectal bleeding was very minimal prior to this; no more than a smear on toilet paper. She admits to nausea/vomiting with bilious emesis which has been an acute on chronic issue throughout
treatment. She feels that her heart is racing since beginning this new clinical trial. She reports dark urine and family noted her to appear jaundiced. She had fever of 101.2 this morning. ECHO was performed. GI has been consulted.
Past-Medical/Surgical History
Metastatic rectal cancer
Hx right-sided PE
Hx endometriosis
Hypothyroidism
Pituitary adenoma
Hx NOAM
GERD
Patient Medication
Medication Instructions Recorded Confirmed Last Taken Type
tramadol 50 mg tablet 50 - 100 mg PO Q6HPRN PRN moderate 04/09/22 10/23/23 Unknown Rx
to severe #40 tabs
docusate sodium 100 mg capsule 100 mg PO DAILY Constipation 09/03/22 10/23/23 Unknown History
(Colace)
ondansetron 8 mg disintegrating 8 mg PO Q8H PRN nausea 09/03/22 10/23/23 Unknown History
tablet
famotidine 20 mg tablet 20 mg PO BID PRN Indigestion 10/23/23 10/23/23 Unknown History
Active Medications
Generic Name Dose Route Start Last Admin
Trade Name Freq PRN Reason Stop Dose Admin
Acetaminophen 650 mg 10/24/23 08:21
Acetaminophen 325 Mg Tablet PO 11/21/23 08:20
Q4HPRN PRN
mild pain/ fever>100.5F
Hydromorphone HCl 0.5 mg 10/24/23 00:05
Hydromorphone 0.5 Mg/0.5 Ml Syringe IV 11/07/23 00:04
Q4HPRN PRN
severe pain
Lactated Ringer's 1,000 mls @ 100 mls/hr 10/24/23 00:05 10/24/23 00:36
Lr IV 1,000 mls
.Q10H TEJAS Administration
Levothyroxine Sodium 25 mcg 10/24/23 07:00 10/24/23 05:40
Levothyroxine 25 Mcg Tablet PO 11/21/23 06:59 25 mcg
DAILY AT 0700 TEJAS Administration
Ondansetron HCl 4 mg 10/24/23 00:05
Ondansetron 4 Mg/2 Ml Vial IV 11/21/23 00:04
Q6HPRN PRN
nausea and vomiting
Pantoprazole Sodium 40 mg 10/25/23 08:00
Pantoprazole Sodium 40 Mg/10 Ml Vial IV 11/22/23 07:59
DAILY TEJAS
Sodium Chloride 0 flush 10/24/23 01:00
Sodium Chloride 0.9% (Flush) Syringe IV 11/21/23 00:59
PER PROTOCOL TEJAS
Sodium Chloride 10 ml 10/24/23 09:00 10/24/23 08:28
Sodium Chloride 0.9% (Preservative Free) 10 Ml Vial IV 11/21/23 08:59 10 ml
DAILY TEJAS Administration
Tramadol HCl 100 mg 10/24/23 00:05 10/24/23 08:27
Tramadol Hcl 50 Mg Tablet PO 11/21/23 00:04 100 mg
Q6HPRN PRN Administration
moderate pain
Review of Systems
-
History Source: Patient, Physician, Coordinated Provider and Records
Constitutional: Reports Fever, Fatigue and Weakness
EENT: Reports No Symptoms
Respiratory: Reports Trouble Breathing and Other (LARSON/SOB)
Cardiac: Reports Orthopnea and Other ('heart racing')
GI: Reports Nausea, Vomiting, Pain and Other (rectal bleeding)
Breast: Reports N/A
: Reports No Symptoms
Musculoskeletal: Reports No Symptoms
Skin: Reports No Symptoms
Neuro: Reports Dizzy and Lightheadedness
Endocrine: Reports No Symptoms
Hematologic/Lymphatic: Reports Bleeding (rectal)
Allergy / Immunology: Reports No Symptoms
Psych: Reports No Symptoms
Physical Exam
-
Gillian is resting in bed. Lying on her side due to discomfort. She reports she is not short of breath at rest. Physical therapy at bedside.
General: Well Developed, Well Nourished and Appears Chronically Ill
HEENT: Jaundice (scleral icterus)
Cardiology: S1, S2 and Other (tachycardia)
Pulmonary: Clear (diminished air flow, room air )
GI: Normal Bowel Sounds
Genito-Urinary: Deferred by me
Musculoskeletal: No Edema
Extremities: Pulses Present
Neurology: Non Focal
Skin: Warm, Dry, Jaundice and Other (pallor)
Hematologic / Lymphatic: No Petechiae
Psych: Calm
Labs
Lab Results
WBC 4.0 10^3/uL (4.8-10.8) L 10/24/23 05:59
RBC 2.94 10^6/uL (4.20-5.40) L 10/24/23 05:59
Hgb 8.3 g/dL (12.0-16.0) L 10/24/23 05:59
Hct 25.7 % (37.0-47.0) L 10/24/23 05:59
MCV 87.4 fL (81.0-99.0) 10/24/23 05:59
MCH 28.2 pg (27.0-31.0) 10/24/23 05:59
MCHC 32.3 g/dL (33.0-37.0) L 10/24/23 05:59
RDW 14.0 % (11.5-14.5) 10/24/23 05:59
Plt Count 148 10^3/uL (130-400) 10/24/23 05:59
MPV 10.5 fL (7.4-10.4) H 10/24/23 05:59
Abs Immat Gran (auto) 0.0 10^3/uL (0-0.05) 10/23/23 18:48
Absolute Neuts (auto) 2.9 10^3/uL (1.4-6.5) 10/23/23 18:48
Absolute Lymphs (auto) 0.5 10^3/uL (1.2-3.4) L 10/23/23 18:48
Absolute Monos (auto) 1.1 10^3/uL (0.1-0.6) H 10/23/23 18:48
Absolute Eos (auto) 0.2 10^3/uL (0-0.7) 10/23/23 18:48
Absolute Basos (auto) 0.0 10^3/uL (0-0.2) 10/23/23 18:48
Immature Gran % 0.4 % (0-0.5) 10/23/23 18:48
Neutrophils % 61.7 % (42.2-75.2) 10/23/23 18:48
Lymphocytes % 10.5 % (20.5-51.1) L 10/23/23 18:48
Monocytes % 23.6 % (1.7-9.3) H 10/23/23 18:48
Eosinophils % 3.4 % (0-6) 10/23/23 18:48
Basophils % 0.4 % (0-2) 10/23/23 18:48
Creatinine 0.4 mg/dL (0.6-1.0) L 10/24/23 05:59
Vital Signs
Vital Signs
Temp Pulse Resp BP Pulse Ox
100.3 F 120 24 100/48 93
10/24/23 08:13 10/24/23 08:13 10/24/23 08:13 10/24/23 08:13 10/24/23 08:13
10/23/23 CT chest: Stable pulmonary metastasis. There are greater than 20 bilateral pulmonary masses measuring up to 4 cm, consistent with pulmonary metastasis and not significantly changed when compared with the 10/17/2023 examination.There are no
focal areas of pulmonary consolidation to suggest pneumonia.There is no pleural effusion.There is a port catheter in place through right subclavian access with its tip extending to the cavoatrial junction. Imaging obtained into the upper abdomen
demonstrates no acute abnormalities.
10/23/23 Abd US: Sludge filled gallbladder. No sonographic findings to suggest acute cholecystitis.No evidence for intrahepatic biliary ductal dilation. Common bile duct measures up to 6 mm, which is top-normal.Fatty infiltration of the liver.
Questionable round lesion within the superior right lobe of the liver. As warranted, consideration for follow-up CT of the abdomen.The pancreas is not adequately visualized.
--- NOTE | 2023-10-24 08:54 | CON.GI ---
Addendum entered and electronically signed by Yadira Powers MD 10/24/23 09:42:
I saw and examined the patient.
The BOX TOE STITCHER's note was reviewed and I agree with the note.
53-year-old female with history of metastatic rectal cancer stage IV dx 2021, hypothyroidism, pituitary adenoma, history of DVT and PE, GERD and endometriosis presents to the emergency room with shortness of breath.� Patient is currently enrolled in
trial at [facility] and is followed by Dr. Cristino Romero and is currently on Entinostat, NHS-ILIS and Bintrafuspalf which are trial medications that she started at the end of August.� The patient states that she started to notice that she had increasing
shortness of breath. Patient also with 1 day of rectal bleeding RBR small amount with some clots. Hgb is 8.3 down from 8.5 from prior labs on 10/17/23 she was 9.0. T Bili is 6.6 (5.4), D Bili 5.6 (4.4), AST 173 (177), ALT 192 (211), Alk Phos 915
(810).
Impression:
Metastatic Rectal Cancer ( currently on Trial at [facility])
Elevated LFTs (new) - DD; DILI vs mets vs etc
Rectal bleeding - no bleeding this am
SOB
Fever
Plan:
- monitor H/H
-Trend LFTs
-will Obtain MRI/ MRCP with possible sedation
-Oncology consult pending
-If patient continues to have rectal bleeding patient she woulld like to have consultation with
�
Original Note:
Consultation
-
Date/Time Consultation Requested: 10/24/23 0005
Date/Time Consultation Performed: 10/24/23814
Requesting Provider: Dr. Rouse
Performing Provider: Dr. Powers/KESHIA Tovar
Reason for Consultation: elevated LFTs
Medical History
Chief Complaint / HPI
Chief Complaint: SOB
History of Present Illness:
53-year-old female with history of metastatic rectal cancer stage IV dx 2021, hypothyroidism, pituitary adenoma, history of DVT and PE, GERD and endometriosis presents to the emergency room with shortness of breath. Patient is currently enrolled in
trial at [facility] and is followed by Dr. Cristino Romero and is currently on Entinostat, NHS-ILIS and Bintrafuspalf which are trial medications that she started at the end of August. The patient states that she started to notice that she had increasing
shortness of breath. She also started to notice some rectal bleeding that was not mixed in with stool, rather some drops of blood and small clots. We are asked to evaluate for elevated LFTs. The patient denies any recent travel except to [place]
for Dr. Renner. No raw, spoiled food, no new meds or increased doses, no Acetaminophen, no tattoos, piercing, or IVDA. She denies any sick contacts. She denies any N/V/D, abd pain, melena, dysphagia, odynophagia or early satiety. She states that the
rectal bleeding was very small and self limiting. Patient was febrile last evening T Max 101.2. Flu negative, Blood cultures x 2 (pending), UA/UC pending, Covid pending.
Past Medical History
Past Medical History: Cancer (metastatic rectal Ca), GERD, Hypothyroidism and Other (pituitary adenoma, hx DVT/PE, endometriosis)
Past Surgical History: Gynecological (NOAM) and Other (port placement)
Social History
Tobacco: Former Smoker (quit 2021)
Alcohol: None
Drug: None
Family History
Family History: Adopted
Allergies / Home Medications
Allergy/AdvReac Type Severity Reaction Status Date / Time
aprepitant [From Emend] Allergy Anaphylaxis Verified 10/23/23 17:51
codeine Allergy Vomiting Verified 10/23/23 17:51
fosaprepitant [From Emend] Allergy Anaphylaxis Verified 10/23/23 17:51
hydromorphone [From Dilaudid] Allergy Nausea Verified 10/23/23 17:51
Medication Instructions Recorded
tramadol 50 mg tablet 50 - 100 mg PO Q6HPRN PRN moderate 04/09/22
to severe #40 tabs
docusate sodium 100 mg capsule 100 mg PO DAILY Constipation 09/03/22
(Colace)
ondansetron 8 mg disintegrating 8 mg PO Q8H PRN nausea 09/03/22
tablet
famotidine 20 mg tablet 20 mg PO BID PRN Indigestion 10/23/23
Review of Systems
-
All other systems: A 12 pt ROS was Negative except as stated above in HPI
Vital Signs
Temp Pulse Resp BP Pulse Ox
100.3 F 120 24 100/48 93
10/24/23 08:13 10/24/23 08:13 10/24/23 08:13 10/24/23 08:13 10/24/23 08:13
Physical Exam
Exam
General: No Apparent Distress
HEENT: Normocephalic and Anicteric (mild sclera icterus)
Respiratory: Clear (anterior)
Cardiac: Regular Rhythm (tachy)
GI: Soft, Non Tender, Non Distended and Normal Bowel Sounds
Musculoskeletal: No Edema
Skin: Warm and Dry
Neuro: AO x 3
Psych: Calm
Results
WBC 4.0 10^3/uL (4.8-10.8) L 10/24/23 05:59
Hgb 8.3 g/dL (12.0-16.0) L 10/24/23 05:59
Hct 25.7 % (37.0-47.0) L 10/24/23 05:59
MCV 87.4 fL (81.0-99.0) 10/24/23 05:59
Plt Count 148 10^3/uL (130-400) 10/24/23 05:59
Absolute Neuts (auto) 2.9 10^3/uL (1.4-6.5) 10/23/23 18:48
PT 18.0 Sec (11.4-14.6) H 10/23/23 20:39
INR 1.50 10/23/23 20:39
Sodium 130 mmol/L (135-145) L 10/24/23 05:59
Potassium 3.9 mmol/L (3.5-5.1) 10/24/23 05:59
Chloride 95 mmol/L (98-107) L 10/24/23 05:59
Carbon Dioxide 25 mmol/L (22-30) 10/24/23 05:59
BUN 9 mg/dl (7-17) 10/24/23 05:59
Creatinine 0.4 mg/dL (0.6-1.0) L 10/24/23 05:59
Calcium 8.2 mg/dl (8.4-10.2) L 10/24/23 05:59
Total Bilirubin 6.6 mg/dl (0.2-1.3) H 10/24/23 05:59
AST 173 U/L (14-36) H 10/24/23 05:59
ALT 192 U/L (0-35) H 10/24/23 05:59
Alkaline Phosphatase 915 U/L (38-126) H 10/24/23 05:59
Diagnostic Image Results:
US Abd:
Sludge filled gallbladder. No sonographic findings to suggest acute cholecystitis.
No evidence for intrahepatic biliary ductal dilation. Common bile duct measures up to 6 mm, which is top-normal.
Fatty infiltration of the liver.
Questionable round lesion within the superior right lobe of the liver. As warranted, consideration for follow-up CT of the abdomen.
The pancreas is not adequately visualized.
CTA Chest 10/23/23:
IMPRESSION:
Stable pulmonary metastasis
Electronically signed by Emigdio Maldonado MD 10/23/2023 9:28 PM
Prior GI Procedures:
EGD:
Colonoscopy: ([facility]) 04/07/2022
�� � - Rectal mass 6.0 cm from the anal verge.
�� � � � � � � � � � � - Rule out malignancy, partially obstructing tumor in
�� � � � � � � � � � � the mid rectum. Biopsied.
Assessment / Plan
-
53-year-old female with history of metastatic rectal cancer stage IV dx 2021, hypothyroidism, pituitary adenoma, history of DVT and PE, GERD and endometriosis presents to the emergency room with shortness of breath. Patient is currently enrolled in
trial at [facility] and is followed by Dr. Cristino Romero and is currently on Entinostat, NHS-ILIS and Bintrafuspalf which are trial medications that she started at the end of August. The patient states that she started to notice that she had increasing
shortness of breath. Patient also with 1 day of rectal bleeding RBR small amount with some clots. Hgb is 8.3 down from 8.5 from prior labs on 10/17/23 she was 9.0. T Bili is 6.6 (5.4), D Bili 5.6 (4.4), AST 173 (177), ALT 192 (211), Alk Phos 915
(810).
Impression:
Metastatic Rectal Cancer on Trial Meds at [facility]
Elevated LFTs (new)
Rectal bleeding
SOB
Fever
Plan:
-Check Acute Hepatitis panel
-Trend LFTs
-Obtain Abd dopplers
-Obtain MRI/MRCP
-Trend Hgb
-Await infectious workup
-Onc consult pending
-If patient continues to have bleeding she ask to see her CRS, which is appropriate.
-
-
Thank you for consultation and allowing me to participate in the patient's care. Please call the irrigation engineer GI physician during the after hours with any questions or concerns.
[2023-10-24 09:18] LABS: COVID-19 Antigen Negative (Negative)
--- NOTE | 2023-10-24 09:18 | W.PN.HOSP.TC ---
Addendum entered and electronically signed by Taya Hassan MD 10/24/23 12:50:
d/w Dr. Abdul, who will reach out to [facility]
she request Cards consult which is now ordered. Echo pending
transfer IMU given marginal BPs
Original Note:
Today's Communication/Plan
-
appreciate GI recs
await Onc recs
follow Hb and rectal bleeding
monitor infectious workup
Abd US and MRI Abd
Assessment / Plan
Assessment / Plan
Assessment:
Subjective Dyspnea
- not requiring O2; lungs clear
- could be multifactorial from malignancy, anemia, med effect etc
- CT: Stable pulmonary metastasis, no new findings
- recent CT-A was negative
- trop negative
- Echo pending
Normocytic Anemia
Anemia of Chronic Disease
Acute Blood Loss Anemia from rectal bleeding; Known rectal cancer with metastases and history of polypectomy, XRT
- Hb stable 8.5, noted 10.6 prior to that. continue to monitor and trend
- could be related to bintrafusp clinical trial
- GI consulted
- may consider CRC consult
Known rectal cancer with metastases
- Onc consulted
- [facility] contact - contact Dr. Cristino Romero ([phone]).
Fevers
- follow infectious workup
- prn Tylenol
- hold off Abx for now
Abnormal LFTs
Direct Hyperbilirubinemia
- Unclear etiology.�Abrupt increase compared to labs done 10/16.
- No new meds in that time per patient.
- Some sludge noted on US, but no evidence of obstruction/ductal dilation/etc.
- ? med effect as noted above.
- Monitor for changes in LFTs.
- GI and Oncology evaluation as noted.
- for US Abdomen dopplers
- for MRI/MRCP - sedation orders placed
Tachycardia, sinus
- Worsening tachycardia over the past few weeks per patient.
- May be contributing to subjective dyspnea with exertion.
- IVF support for suspected degree of hypovolemia.
- Monitor on telemetry.
- Check Echo as noted above.
- TSH normal
Hyponatremia, acute
Hypothyroidism
- Likely combination of hypovolemia as noted above and under / un-treated hypothyroidism as patient discontinued her T4 supplementation.
- IVF support overnight as noted.
- Restart T4 supplementation at usual 25mcg dose.
- Follow for improvement in labs / lytes.
Chronic Pain Syndrome
- Secondary to malignancy.
- Continue pain control with tramadol
- allergy to Dilaudid per patient.
- Bowel regimen to prevent constipation.
DVT Prophylaxis
History of DVT/PE
- CTA 10/16 was negative for PE.
- Hold pharmacologic therapy given rectal bleeding.
- SCDs
Code Status:� Full
Anticipated Discharge: > 48 hours
Subjective/Interval History
-
Date of Service: October 24, 2023
reports rectal bleeding is worsening
Hb stable around 8.3 to 8.5 range
febrile this morning, no localizing symptoms per patient
Objective Data
-
Labs:
Laboratory Results
10/24/23
05:59
WBC 4.0 L
Hgb 8.3 L
Hct 25.7 L
Plt Count 148
Sodium 130 L
Potassium 3.9
Chloride 95 L
Carbon Dioxide 25
BUN 9
Creatinine 0.4 L
Glucose 100 H
Calcium 8.2 L
Total Bilirubin 6.6 H
AST 173 H
ALT 192 H
Alkaline Phosphatase 915 H
Vital Signs:
Vital Signs
Temp Pulse Resp BP Pulse Ox
100.3 F 120 24 100/48 93
10/24/23 08:13 10/24/23 08:13 10/24/23 08:13 10/24/23 08:13 10/24/23 08:13
I&O
10/23/23 10/24/23 10/25/23
06:59 06:59 06:59
Intake Total 120 / 120
Output Total 550 / 550
Balance -430 / -430
Physical Exam
-
General: Well Developed and Well Nourished
HEENT: Normocephalic and Atraumatic
Respiratory: Negative Wheezes or Rales
Cardiac: Regular Rhythm and S1/S2
GI: Soft and Nontender
Genito-urinary: No Costovertebral Tender
Musculoskeletal: No Edema
Skin: IV Access / Catheter Site (RCW port)
Neuro: AO x 3
Hematologic / Lymphatic: No Lymphadenopathy
Psych: Calm
Data Reviewed
-
Total Time Spent with Patient (in minutes): 45
Labs: Labs Reviewed by me
[2023-10-24 11:56] LABS: Hepatitis B Surface Antigen Negative (Negative)
[2023-10-24 12:13] LABS: Hepatitis B Surface Antibody Negative; Hepatitis C Antibody Negative (Negative)
--- NOTE | 2023-10-24 13:01 | CON.CAR ---
Addendum entered and electronically signed by Calos Mendes MD 10/24/23 16:17:
I saw and examined the patient.
The BRANCH CREDIT COUNSELOR's note was reviewed and I agree with the note.
53-year-old woman with a history of metastatic rectal cancer who presents with shortness of breath
Recently presented to the ER with shortness of breath and had a CTA which showed pulmonary metastases and no evidence of pulm consult for sinus tachycardia. Besides having shortness of breath patient also has had pain related to malignancy
low-grade fever and anemia and hyponatremia consult for elevated heart rate.
Consult for tachycardia. ECG telemetry shows sinus tachycardia with no other arrhythmias. Echocardiogram today showed normal left ventricular function. Multiple factors may be contributing to sinus tachycardia in this patient this includes pain,
anemia fever relatively low blood pressure and limited oral intake. By treating the above issues heart rate may improve.
-Treat fever and assess for source of infection
-Treatment of anemia as directed by primary team and hematology/oncology
-Pain control
-IVF with close monitoring of sodium
-Check cortisol
Original Note:
Consultation
Consultation Request
Date/Time Consultation Requested: 10/24/23 1240
Date/Time Consultation Performed: 10/24/23 1300
Requesting Provider: Dr. Hassan
Performing Provider: Rajni SCHMITT for Dr. Mendes
Reason for Consultation: tachycardia
Medical History
-
Chief Complaint: SOB
History of Present Illness:
53 y/o female with metastatic rectal (on immunotherapy trial with [facility]), but also history of radiation and chemotherapy, hypothyroidism, hx PE (post-op hysterectomy 7 years ago), GERD, and pituitary adenoma who is here for evaluation of SOB. Briefly,
she recently started a trial therapy and had her 2nd infusion about weeks ago and has had LARSON ever since about that time. CTA last week showed pulm metastasis and no PE. CT this admit redemonstrated pulm metastasis, but did not show anything acute.
We are consulted due to consistent tachycardia noted on the monitor. HR currently in 110's. BP on low end. She feels palps and light-headedness only when walking. She is noted to have elevated LFT's and GI is following and she is getting an
ultrasound. She has worsened rectal pain and more blood per rectum than usual. Hgb mildly lower than before. She is not eating or drinking much. She is noted to have hyponatremia. She has rectal pain at the time of my assessment and is getting IV
morphine.
Past Medical History
Past Medical History: Cancer, GERD, Hypothyroidism and Other (as above)
Social History
Tobacco: Former Smoker ('social')
Family History
Family History: Adopted
Allergies / Home Medications
Allergy/AdvReac Type Severity Reaction Status Date / Time
aprepitant [From Emend] Allergy Anaphylaxis Verified 10/23/23 17:51
codeine Allergy Vomiting Verified 10/23/23 17:51
fosaprepitant [From Emend] Allergy Anaphylaxis Verified 10/23/23 17:51
hydromorphone [From Dilaudid] Allergy Nausea Verified 10/23/23 17:51
Medication Instructions Recorded Confirmed Type
tramadol 50 mg tablet 50 - 100 mg PO Q6HPRN PRN moderate 04/09/22 10/23/23 Rx
to severe #40 tabs
docusate sodium 100 mg capsule 100 mg PO DAILY Constipation 09/03/22 10/23/23 History
(Colace)
ondansetron 8 mg disintegrating 8 mg PO Q8H PRN nausea 09/03/22 10/23/23 History
tablet
famotidine 20 mg tablet 20 mg PO BID PRN Indigestion 10/23/23 10/23/23 History
Review of Systems
-
History Source: Patient
All other systems: Negative unless noted
Constitutional: Other (light-headedness with walking)
Respiratory: Trouble Breathing
Cardiac: Palpitations
Abdomen/GI: Pain (rectal)
Physical Exam
Vital Signs
Temp Pulse Resp BP Pulse Ox
98.6 F 131 24 90/57 96
10/24/23 11:35 10/24/23 11:35 10/24/23 11:35 10/24/23 11:35 10/24/23 11:35
Lab Results
10/24/23 05:59
10/24/23 05:59
Troponin I < 0.012 ng/ml 10/24/23 05:59
Physical Exam
General: No Apparent Distress
HEENT: Normocephalic and Anicteric
Cardiac: Regular Rhythm (ST)
Skin: Warm and Dry
Neuro: AO x 3
Psych: Calm
Impression / Plan
-
SOB:
-trops normal, recent BNP 27
-CTA this past week no PE
-CT scan this admit pulm metastasis
-echo is pending
-patient with anemia as well
Fever:
-resolved, 101.2 this AM- work-up per primary team, cx pending
Tachycardia:
-telemetry reviewed- all sinus
-TSH normal
-echo pending
-patient with fever, anemia as above -work-up is underway
-patient also with pain
Hypothyroidism:
-stable with normal TSH
Metastatic rectal cancer:
-per notes on Bintrafusp clinical trial with [facility]
-oncology on the case
Hyponatremia:
-per primary
Abnormal LFT's:
-imaging pending
-GI following
Data Reviewed
-
EKG: Tracing Personally Visualized and interpreted (ST 112 BPM)
CT Scan: Report Reviewed by me (CT scan: Stable pulmonary metastasis)
Medical Tests (Nuc Med, Echo etc): Report Reviewed by me (echo 09/03/22: Normal biventricular size and systolic function without regional wall motion abnormality. [facility] EPIQ left ventricular global longitudinal strain is -17.4%. No significant
valvular disease. )
Labs: Labs Reviewed by me
[2023-10-24 13:31] LABS: Creatine Phosphokinase 39 U/L (30-135); LDH 307 U/L (120-246)
[2023-10-24] MEDS: MORPHINE SULFATE 1 MG IV ×3 (14:11→21:40)
--- NOTE | 2023-10-24 15:28 | CM ---
Reviewed the chart notes and spoke with the patient and her family at the bedside. The patient resides with her spouse in a three story home with two steps to enter. The patient reports no DME/VN/SNF in the past. The patient confirmed her
pharmacy of choice is the [facility]. The patient is being transferred to IMU today. CM continues to be available to patient/family and is monitoring medical plan for needs at discharge.
Plan: Discharge plans will depend on the patient's progress.
--- NOTE | 2023-10-24 15:45 | W.PN.UPDATE ---
Update Note
Progress Note Update
Echocardiogram previous studies. Monitor without any further arrhythmias. Pacemaker functioning appropriately via [employer] I also reviewed issues with the [employer] rep and had repeat patient's device reassessed. It is functioning appropriately.
Patient only paces 3% of the time. Set up VVI 40. Base rate increased to 50. Issues reviewed with both the patient and his at bedside. Also additional discussion with the patient's primary gis software developer Dr. Montoya. Will continue observation
overnight. If no arrhythmias and the patient continues to feel well then we will plan for outpatient follow-up with Dr. Montoya and additional palpation cardiac monitoring. Dr. Montoya will be arranging the monitor.
--- NOTE | 2023-10-24 16:14 | PTCARENOTE ---
Report called to Kale in IMU.
--- NOTE | 2023-10-24 16:30 | PTCARENOTE ---
Received patient from , patient was able to stand and pivot to the bed, Orthos done at this time. Orthos were positive with a sitting BP of 81/59, standing not assessed. AAO. Patient is tachycardic. Complaints of rectal pain and nausea. MRI
that was scheduled for today is now for tomorrow, diet reordered. Oriented to room. Call españa in reach.
--- NOTE | 2023-10-24 16:46 | PTOTSP ---
Pt was transferred to IMU from [address] [place] [address]. PT orders were not continued upon transfer. Will need updated PT order when stable to participate in activity (she was orthostatic this AM).
[2023-10-24] MEDS: ZOFRAN 4 MG IV (17:02)
[2023-10-24 17:51] LABS: Troponin I < 0.012 ng/ml
[2023-10-24 18:54] LABS: Hepatitis A IgM Antibody Negative (Negative); Hepatitis B Core Ab, IgM Negative (Negative)
[2023-10-24] MEDS: MORPHINE SULFATE 2 MG IV (19:46)
--- NOTE | 2023-10-24 20:27 | PTCARENOTE ---
ax3 sinus tach bp wnl fever and unrelieved pain treated by unpaid intern- extra dose of morphine and caldolor see mar- fluids running through port- pt and educated on meds and plan or care-
[2023-10-24 21:40] LABS: Mean Corpuscular Hgb 27.6 pg (27.0-31.0); Mean Corpuscular Volume 83.6 fL (81.0-99.0); Platelet Count 115 10^3/uL (130-400); Red Blood Cell Count 2.32 10^6/uL (4.20-5.40); Red Cell Dist. Width 14.6 % (11.5-14.5); White Blood Cell Count 7.6 10^3/uL (4.8-10.8)
--- NOTE | 2023-10-24 21:47 | PTCARENOTE ---
pt hypotensive sbp in the 70's with fever- pattern perforating machine operator ordered 1 liter with neena if fluids dont bring bp up- fever broke- sinus tach but rate in the low 100's. pattern perforating machine operator ordered lactic bmp procal and cbc- labs sent and pending.
[2023-10-24 21:51] LABS: Hematocrit 19.4 % (37.0-47.0); Hemoglobin 6.4 g/dL (12.0-16.0); Lactic Acid 1.2 mmol/L (0.7-2.0)
[2023-10-24 22:07] LABS: Blood Urea Nitrogen 10 mg/dl (7-17); Calcium 7.2 mg/dl (8.4-10.2); Carbon Dioxide 26 mmol/L (22-30); Chloride 101 mmol/L (98-107); Estimated Creatinine Clearance 116 ml/min; Glucose 126 mg/dl (70-99); Potassium 3.8 mmol/L (3.5-5.1); Sodium 126 mmol/L (135-145); eGFR > 60.00
--- NOTE | 2023-10-24 22:24 | PTCARENOTE ---
plastic injection mold maker ordering 2 units prbc for critical h+h- bp trending up
--- NOTE | 2023-10-24 22:39 | W.PN.UPDATE ---
Addendum entered and electronically signed by KESHIA Hewitt 10/24/23 23:54:
procalcitonin 2.10
lactic normal
unsure of source will initiate zosyn iv q6h empirically.
Original Note:
Update Note
Progress Note Update
1945 pt with uncontrolled rectal pain. was ordered 1mg morphine earlier in day and this has not been sufficient in helping pain 05/10. Will try 2mg morphine x1
temp 101.4 shortly therafter. with lft and bili elevated will try caldor iv x 1 (received dose early this am)
2100 pt BP now 70s/40s Will give bolus LR x1 now, add neena gtt if bp no improved. Check CBC,bmp, lactic and procal
2200 HH 6.4 Spoke to pt at bedside- explained her HH is now lower than this am. Blood transfusion risks and benefits explained. PT states rectal bleeding has continued since admit. Likely cause of drop in HH. Will order 2 units PRBC.
--- NOTE | 2023-10-24 23:03 | PTCARENOTE ---
first unit prbc's up- no ss of reaction. pt urinated on her own!!! remians hypotensive
[2023-10-25] VITALS (26 sets, daily range): BP systolic 71–110; BP diastolic 42–81; PULSE 85–92
[2023-10-25] MEDS: ZOSYN 50 IV ×4 (00:21→17:24)
--- NOTE | 2023-10-25 00:25 | PTCARENOTE ---
1st unit prbc's transfused-no s/s of reaction - will transfuse second unit shortly
[2023-10-25] MEDS: LR 1000 IV ×2 (03:35→16:20)
--- NOTE | 2023-10-25 03:37 | PTCARENOTE ---
second unit prbc's complete- no s/s of transfusion reaction- sinus 80's- bp rising, afebrile. pt continues to void in bathroom without need for straight cath
[2023-10-25 06:23] LABS: % Basophils 0.2 % (0-2); % Immature Granulocytes 2.3 % (0-0.5); % Lymphocytes 5.2 % (20.5-51.1); % Monocytes 18.2 % (1.7-9.3); % Neutrophils 74.1 % (42.2-75.2); Absolute Immature Granulocytes 0.2 10^3/uL (0-0.05); Absolute Lymphocytes 0.4 10^3/uL (1.2-3.4); Absolute Monocytes 1.5 10^3/uL (0.1-0.6); Absolute Neutrophils 6.1 10^3/uL (1.4-6.5); Hemoglobin 8.6 g/dL (12.0-16.0); Mean Corp Hgb Conc. 33.1 g/dL (33.0-37.0); Mean Corpuscular Hgb 28.9 pg (27.0-31.0); Mean Corpuscular Volume 87.2 fL (81.0-99.0); Mean Platelet Volume 10.2 fL (7.4-10.4); Nucleated Red Blood Cells % 0 %; Platelet Count 100 10^3/uL (130-400); Red Blood Cell Count 2.98 10^6/uL (4.20-5.40); Red Cell Dist. Width 14.4 % (11.5-14.5); White Blood Cell Count 8.2 10^3/uL (4.8-10.8)
[2023-10-25 06:42] LABS: ALT (SGPT) 126 U/L (0-35); AST (SGOT) 111 U/L (14-36); Albumin 2.3 g/dl (3.5-5.0); Alkaline Phosphatase 547 U/L (38-126); Blood Urea Nitrogen 10 mg/dl (7-17); Calcium 7.3 mg/dl (8.4-10.2); Carbon Dioxide 24 mmol/L (22-30); Chloride 103 mmol/L (98-107); Estimated Creatinine Clearance 116 ml/min; Glucose 106 mg/dl (70-99); Potassium 3.8 mmol/L (3.5-5.1); Sodium 130 mmol/L (135-145); eGFR > 60.00
[2023-10-25] MEDS: MORPHINE SULFATE 1 MG IV ×2 (06:43→16:19)
[2023-10-25] MEDS: SYNTHROID 25 MCG PO (06:43)
[2023-10-25 07:12] LABS: Cortisol, Random 23.3 ug/dl
[2023-10-25] MEDS: ATIVAN 1 MG IV (07:59)
[2023-10-25] MEDS: PROTONIX IV 40 MG IV (08:00)
[2023-10-25] MEDS: NSS (PRESERVATIVE FREE) 0.5 ML IV (08:00)
[2023-10-25] MEDS: ZOFRAN 4 MG IV (08:00)
[2023-10-25] MEDS: NSS (PRESERVATIVE FREE) 10 ML IV (08:01)
--- NOTE | 2023-10-25 08:51 | W.PN.UPDATE ---
Update Note
Progress Note Update
Reviewed telemetry appears to be having intermittent sinus tachycardia, otherwise, patient was away at testing.
Multiple reasons for this as reviewed in prior notes.
Please call back with questions or concerns we will sign off.
--- NOTE | 2023-10-25 09:09 | PTCARENOTE ---
Received patient from proposal manager writer. Patient resting comfortably in bed. AAO, VSS. Complaints of rectal pain but not as severe as yesterday. MRI scheduled for today. Patient received 2 units of PRBC overnight and bolus of IVF, BP and HR much
improved. Call españa in reach.
--- NOTE | 2023-10-25 09:09 | W.PN.ONC ---
Addendum entered and electronically signed by Kia Lyman MD 10/25/23 15:29:
MRI results finalized and reviewed, with progression of mel hepatis adenopathy and mild intraductal biliary dilatation. Findings concerning for obstructive process to explain LFTs. Case d/w Dr. Nguyen at [facility]. Based on MRI, clinical picture is more
concerning for obstruction, less likely immune hepatitis. Will stop steroids and ask GI to consider ERCP.
Addendum entered and electronically signed by Kia Lyman MD 10/25/23 12:35:
Patient seen on am rounds, sleeping, family at bedside.
Concern for immune hepatitis from clinical trial therapy. Will empirically start methylprednisolone 1mg/kg IV daily
Await official read on liver MRI
I've reached out to Dr. Nguyen at [facility], awaiting reply.
d/w family.
Original Note:
Today's Communication / Plan
-
10/24 WBC 8.2, Hgb 8.6, Hct 26.0, PLT 100
Transfuse as needed to maintain Hgb >7.5, PLT >20 (or >50 with active bleeding)
Closely monitor CBC w/ diff daily, serial H/H
Monitor for bleeding with drop in platelets - patient reports increased rectal bleeding with clots
Colorectal and Infectious Disease consulted
Abdominal MRI completed this morning - await report
Additional labs are pending due to concerns of DIC
Pain/nausea management, supportive care, emotional support
Discussed case and concerns with Oksana Geller
Our service to connect with [facility] regarding clinical trial
Dr. Cristino Nguyen contact information: cell phone # [phone]
We will follow closely.
Impression
Impression
Metastatic rectal cancer, hx polypectomy and XRT on Bintrafusp clinical trial x2 infusions ([facility] in [place], Dr. Nguyen)
Acute severe dyspnea/shortness of breath
RUQ abdominal/rectal pain
Increased rectal bleeding/clots
Concerns for hemolytic anemia
Concern for DIC
Fevers
Tachycardia
Hypotension/orthostasis requiring pressors
Elevated LFTs with jaundice
Subjective/Objective
Subjective/Objective
patient returned to the unit from MRI. she mentions mild RUQ discomfort. denies severe pain. her nausea is well controlled with zofran and ativan prior to MRI. she reports increased rectal bleeding with clots overnight and yesterday. and
nursing at bedside.
Vital Signs:
Vital Signs
Temp Pulse Resp BP Pulse Ox
97.9 F 89 17 97/63 92
10/25/23 07:25 10/25/23 06:00 10/25/23 06:00 10/25/23 06:00 10/25/23 06:00
physical exam:
aaox3, pleasant/calm, jaundice, scleral icterus noted
Right CW port, CDI
HRR in the 80s, lungs dim/clear on room air
hypoactive bowel sounds, no edema
Lab Results:
Laboratory Data
WBC 8.2 10^3/uL (4.8-10.8) 10/25/23 05:42
Hgb 8.6 g/dL (12.0-16.0) L D 10/25/23 05:42
Plt Count 100 10^3/uL (130-400) L 10/25/23 05:42
PT 18.0 Sec (11.4-14.6) H 10/23/23 20:39
INR 1.50 10/23/23 20:39
eGFR > 60.00 10/25/23 05:42
Orders
Orders
Orders From Last 24 Hours
10/25/23 09:05
D-Dimer Urgent
Fibrinogen Urgent
10/25/23 09:08
Folate Urgent
--- NOTE | 2023-10-25 09:49 | CON.ID ---
Consultation
-
Date/Time Consultation Requested: 10/25/2023, 0838
Date/Time Consultation Performed: 10/25/2023, 0950
Requesting Provider: Dr. Taya Hassan
Performing Provider: Dr. Carmen Rai
Reason for Consultation: shock
Chief Complaint / Past History
Chief Complaint
Shortness of breath and rectal bleeding
History of Present Illness
53-year-old female with stage IV rectal cancer with metastases to the lungs, liver and lymph nodes currently on clinical trial with immunotherapy (at [facility]). After receiving the 2nd treatment 2 weeks ago, she immediately developed SOB for which she
presented to ED 10/16. Chest CT no PE, + pulm mets. She was discharge to home. She continued to have LARSON. Also rectal bleeding, N/V. Over the weekend, she noted her skin and the whites of her eyes were yellow. She came to ED 10/22. LFT's are
elevated. HgB decreased to 6.4. Abd US showed GB sludge. She spiked fevers x 2 yesterdays. She was started on Zosyn. MRI abd result pending. Today, she feels better after pRBC transfusions. Continue with rectal bleeding. Denies abdominal pain.
Denies dysuria or urgency. No ill contacts.
Past History
Additional Past Medical History:
Stage IV rectal ca with pulmonary, liver, LN mets currently on Bintrafusp clinical trial
hypothyroidism
h/o PE
endometriosis
pituitary adenoma
port placement
NOAM
Allergy History:
aprepitant [From Emend] Allergy (Verified 10/23/23 17:51)
Anaphylaxis
codeine Allergy (Verified 10/23/23 17:51)
Vomiting
fosaprepitant [From Emend] Allergy (Verified 10/23/23 17:51)
Anaphylaxis
hydromorphone [From Dilaudid] Allergy (Verified 10/23/23 17:51)
Nausea
Medications Reviewed: Yes
Current Antibiotics:
Zosyn d2
Social History
Tobacco: Former Smoker
Alcohol: None
Drug: None
Personal:
Family History
Family History: Adopted
Review of Systems
Review of Systems
General: Chills and Change in Appetite; Negative Fever
HEENT: Negative Stiff Neck, Sinus Problems, Headache or Pharyngitis
Cardiovascular: Dyspnea and Palpitations; Negative Edema
Respiratory: Negative Cough or Sputum Production
Gasteroenterology: Nausea, Vomiting and Other (no diarrhea. Was constipated.)
Genital / Urological: Negative Dysuria, Hematuria or Flank Pain
Endocrine: Weakness
Musculoskeletal: Negative Arthralgias
Neurological: Dizziness; Negative Headache
All systems: All other systems were reviewed and were negative
Vital Signs
Temp Pulse Resp BP Pulse Ox
97.9 F 89 17 97/63 92
10/25/23 07:25 10/25/23 06:00 10/25/23 06:00 10/25/23 06:00 10/25/23 06:00
Selected Entries
10/24/23
19:25
Temp 101.2 F H
Physical Exam
Physical Exam
Constitutional: No Acute Distress and Comfortable
Eyes: Other (Sclera icteric); Negative No Conjunctival Hemorrhage
Cardiovascular: Regular Rate and S1/S2
Pulmonary: Clear
Gastrointestinal: Soft, Non Tender, Non Distended and Normal Bowel Sounds
Genito-Urinary: Negative CVA Tenderness
Extremities: Negative Edema
Skin: Jaundice; Negative Rash
Neurological: AO x 3
Lines: Port (RCW no erythema)
Lab / Diagnostic Study Results
10/25/23 05:42
10/25/23 05:42
Abs Immat Gran (auto) 0.2 10^3/uL (0-0.05) H 10/25/23 05:42
Absolute Neuts (auto) 6.1 10^3/uL (1.4-6.5) 10/25/23 05:42
Absolute Lymphs (auto) 0.4 10^3/uL (1.2-3.4) L 10/25/23 05:42
Absolute Monos (auto) 1.5 10^3/uL (0.1-0.6) H 10/25/23 05:42
Absolute Basos (auto) 0.0 10^3/uL (0-0.2) 10/25/23 05:42
Total Counted 100 10/23/23 18:48
Immature Gran % 2.3 % (0-0.5) H 10/25/23 05:42
Neutrophils % 74.1 % (42.2-75.2) 10/25/23 05:42
Lymphocytes % 5.2 % (20.5-51.1) L 10/25/23 05:42
Monocytes % 18.2 % (1.7-9.3) H 10/25/23 05:42
Eosinophils % 0.0 % (0-6) 10/25/23 05:42
Basophils % 0.2 % (0-2) 10/25/23 05:42
Abs Neuts (Manual) 3.1 10^3/uL (1.4-6.5) 10/23/23 18:48
Segmented Neutrophils 67 % (42-75) 10/23/23 18:48
Band Neutrophils 0 % (0-3) 10/23/23 18:48
Lymphocytes (Manual) 9 % (20-51) L 10/23/23 18:48
Eosinophils (Manual) 3 % (0-6) 10/23/23 18:48
PT 18.0 Sec (11.4-14.6) H 10/23/23 20:39
INR 1.50 10/23/23 20:39
Lactic Acid 1.2 mmol/L (0.7-2.0) 10/24/23 21:30
Procalcitonin 2.10 ng/ml (0.0-0.25) H* 10/24/23 21:30
Ur Squamous Epith Cells 6-10 /LPF (Few) 10/24/23 05:29
Microbiology Results
Micro:
10/24/23 05:29 Urine Culture - Final
Urine NO GROWTH
10/24/23 06:11 Blood Culture - Preliminary
Blood/Venous No Growth in 24 hours- Final report to follow
10/24/23 05:59 Blood Culture - Preliminary
Blood/Venous No Growth in 24 hours- Final report to follow
10/24/23 08:35 Influenza Types A & B (JASON) - Final
Nasal Swab Negative for Influenza A & B, NAAT
Negative results must be combined with clinical observations
and patient history.
Nucleic Acid Amplification test (NAAT)performed on the
[employer] platform.
10/24/23 Abd US dopplers: At least 2 hypoechoic lesions within the liver, measuring up to 3.3 cm in diameter, most likely representing hepatic metastases.
10/23/23 Renal US: Sludge filled gallbladder. No sonographic findings to suggest acute cholecystitis. No evidence for intrahepatic biliary ductal dilation. Common bile duct measures up to 6 mm, which is top-normal. Fatty infiltration of the liver.
Questionable round lesion within the superior right lobe of the liver. As warranted, consideration for follow-up CT of the abdomen.
10/17/[address]: SEVERE BILATERAL PULMONARY METASTATIC DISEASE which has progressed since 08/12/2023.
Assessment / Plan
# Immunocompromised host
Stage IV recta CA (mets to liver, lungs,LN) on clinical trial with Bintrafusp
# Elevated LFT's
Biliary sepsis vs drug-induced hepatitis
# Fever - trending down
# Hypotension
# Rectal bleeding with blood loss anemia
Plan:
Awaiting MRCP result
Follow blood cx's
Continue Zosyn.
Trend temps, BP.
--- NOTE | 2023-10-25 10:04 | W.PN.GI.CBS2 ---
Addendum entered and electronically signed by Elijah Arias MD 10/25/23 18:29:
I saw and examined the patient.
The PA's note was reviewed and I agree with the note.
Comment:
MRI/MRCP done today showed liver metastatic lesions, and bulky mel hepatis LAD which may be causing extrinsic compression to bile duct. Mildly dilated biliary duct. Hgb remains stable, events o/n including hypotension noted. No active rectal
bleeding currently. Oncology contacted oncologist at [facility] and discussed pt; feel LFT elevation is likely from portal hepatis LAD. Will plan for ERCP tomorrow for biliary stent placement if Hgb remains stable.
Original Note:
Today's Communication / Plan
-
noted events overnight with increased rectal pain, fever, hypotension with BP to 70's requiring pressors
cont to monitor for bleeding if increased consider CTA -- reviewed with Dr. Alexandra
transfuse as needed 2 units given overnight
pt also with further rise of bili with AST/ALT lower
US doppler noted, MRI completed results pending
cont to trend LFT's and INR
cont abx for ID consult
blood cx neg, CT chest stable pulm mets
oncology to review with [facility]
colorectal to see
oncology following
Assessment / Plan
-
53-year-old female with history of metastatic rectal cancer stage IV dx 2021, hypothyroidism, pituitary adenoma, history of DVT and PE, GERD and endometriosis presents to the emergency room with shortness of breath. Patient is currently enrolled in
trial at [facility] and is followed by Dr. Cristino Romero and is currently on Entinostat, NHS-ILIS and Bintrafuspalf which are trial medications that she started at the end of August. The patient states that she started to notice that she had increasing
shortness of breath. Pt admits to intermittent bleeding since start of trial now worse and also new LFT elevation. After admission noted fever and hypotension requiring pressors.
10/23 US doppler
1. At least 2 hypoechoic lesions within the liver, measuring up to 3.3 cm in diameter, most likely representing hepatic metastases.
2. Normal spectral Doppler waveform analysis of the hepatic vasculature.
Impression:
Metastatic Rectal Cancer on Trial Meds at [facility] (no hx prior resection in past)
Elevated LFTs (new)
mild right upper quadrant pain
anemia
Rectal bleeding
SOB
hypotension requiring pressors
Fever
coagulopathy
Plan:
noted events overnight with increased rectal pain, fever, hypotension with BP to 70's requiring pressors
cont to monitor for bleeding if increased consider CTA -- reviewed with Dr. Alexandra
transfuse as needed 2 units given overnight
pt also with further rise of bili with AST/ALT lower
US doppler noted, MRI completed results pending
cont to trend LFT's and INR
cont abx for ID consult
blood cx neg, CT chest stable pulm mets
oncology to review with [facility]
colorectal to see
oncology following
Subjective
Subjective
Date of Service: October 25, 2023
passing intermittent red blood recently larger volumes, started over last few weeks since [facility] treatment started, also some mild RUQ pain started last 2 weeks
NPO
Objective
Data Reviewed
Laboratory Data:
Laboratory Results
10/25/23 05:42
10/25/23 05:42
Laboratory Results
PT 18.0 Sec (11.4-14.6) H 10/23/23 20:39
INR 1.50 10/23/23 20:39
Total Bilirubin 7.0 mg/dl (0.2-1.3) H 10/25/23 05:42
AST 111 U/L (14-36) H 10/25/23 05:42
ALT 126 U/L (0-35) H 10/25/23 05:42
Alkaline Phosphatase 547 U/L (38-126) H 10/25/23 05:42
Vital Signs and I&O:
Vital Signs
Temp Pulse Resp BP Pulse Ox
97.9 F 89 17 97/63 92
10/25/23 07:25 10/25/23 06:00 10/25/23 06:00 10/25/23 06:00 10/25/23 06:00
I&O
10/24/23 10/25/23 10/26/23
06:59 06:59 06:59
Intake Total 120 / 120 2790 / 2790
Output Total 550 / 550 50 / 50
Balance -430 / -430 2740 / 2740
Physical Exam
Physical Exam
HEENT: Other (jaundice )
Cardiology: Normal Sinus Rhythm
Pulmonary: Clear
GI: Soft, Distended and Tender (minimal upper tenderness )
Neuro: Other (occasional forgetful to some questions)
[2023-10-25 10:57] LABS: Fibrinogen 639 MG/DL (199-459)
[2023-10-25 10:59] LABS: D-Dimer 3.03 ug/mlFEU (0.00-0.50)
[2023-10-25 11:47] LABS: INR 1.73; PT 20.1 Sec (11.4-14.6)
[2023-10-25 12:00] LABS: Folate 17.2 ng/ml (2.76-20)
[2023-10-25] MEDS: ULTRAM 100 MG PO ×2 (12:18→20:06)
--- NOTE | 2023-10-25 12:51 | CON.CRS ---
Addendum entered and electronically signed by Delvin Alexandra MD 10/25/23 16:58:
I saw and examined the patient.
The PA's note was reviewed and I agree with the note.
Comment:
Seen recently in patient's room.
History, vitals, labs reviewed. Patient seen.
53 yo F known to me with stage IV widely metastatic mid to distal rectal cancer on a new experimental protocol under the [facility] for last month or so with rectal bleeding which required transfusion last night. Hg responded with an appropriate bump (6.4
to 8.6 after 2 uPRBCs). I suspect the primary in the rectum to be the source. On exam, she is now sitting in a chair talking to her family. Abdomen nontender. ROSALBA deferred. Recommend serial Hgs with option of CT angio if persists. Options
treatment-rome, if needed, may include flexible sigmoidoscopy with APC treatment vs palliative pelvic radiation. Will follow along.
Thanks.
Original Note:
Consultation
-
Date/Time Consultation Requested: 10/25/2023, 0830
Date/Time Consultation Performed: 10/25/2023, 0900
Requesting Provider: Taya Hassan MD
Performing Provider: Delvin Alexandra MD
Reason for Consultation: rectal bleeding
Medical History
-
Chief Complaint: rectal bleeding
History of Present Illness:
Patient is not present in improvement due to testing. History derived from physicians notes.
53-year-old female with a past medical history of metastatic rectal cancer presenting to the emergency department complaining of shortness of breath. Patient is a known patient of Dr. Alexandra due to rectal cancer. She has been undergoing
chemotherapy and enrolled in a trial and that [facility]. She has not undergone any surgery. She apparently received her second dose of IV infusion for bintrafsup about 2 weeks ago. She was in the ER several days prior to admission
and had underwent a CT of the chest and blood work. She was then discharged to home after a negative workup. She has been admitted since 10/23/2023 and has been complaining of rectal bleeding. She will occasionally see large clots as well.
Gastroenterology has seen the patient during this admission. She is currently undergoing an MRI and MRCP due to elevated LFTs and bilirubin.
Past Medical History
Past Medical History: Cancer (metastatic rectal cancer), GERD, Hypothyroidism and Other (pituitary adenoma, h/o dvt/pe, endometriosis)
Past Surgical History: Gynecological (NOAM) and Other (port placement)
Social History
Tobacco: Former Smoker (quit 2 years ago)
Alcohol: None
Drug: None
Family History
Family History: Adopted
Allergies / Home Medications
Allergy/AdvReac Type Severity Reaction Status Date / Time
aprepitant [From Emend] Allergy Anaphylaxis Verified 10/23/23 17:51
codeine Allergy Vomiting Verified 10/23/23 17:51
fosaprepitant [From Emend] Allergy Anaphylaxis Verified 10/23/23 17:51
hydromorphone [From Dilaudid] Allergy Nausea Verified 10/23/23 17:51
Medication Instructions Recorded Confirmed Type
tramadol 50 mg tablet 50 - 100 mg PO Q6HPRN PRN moderate 04/09/22 10/23/23 Rx
to severe #40 tabs
docusate sodium 100 mg capsule 100 mg PO DAILY Constipation 09/03/22 10/23/23 History
(Colace)
ondansetron 8 mg disintegrating 8 mg PO Q8H PRN nausea 09/03/22 10/23/23 History
tablet
famotidine 20 mg tablet 20 mg PO BID PRN Indigestion 10/23/23 10/23/23 History
Review of Systems
-
Abdomen/GI: Bloody Stools
A 10 point review of systems was completed, and was negative except as per HPI.
Physical Exam
Vital Signs
Temp 97.6 F 10/25/23 10:56
Pulse 89 10/25/23 06:00
Resp Rate 17 10/25/23 06:00
Blood pressure 97/63 10/25/23 06:00
SaO2 95 10/25/23 09:00
10/24/23 10/25/23 10/26/23
06:59 06:59 06:59
Actual Weight 79.061 kg
Body Mass Index (BMI) 28.1
Lab Results / Allergies
10/25/23 05:42
10/25/23 05:42
WBC 8.2 10^3/uL (4.8-10.8) 10/25/23 05:42
Hgb 8.6 g/dL (12.0-16.0) L D 10/25/23 05:42
Hct 26.0 % (37.0-47.0) L 10/25/23 05:42
Plt Count 100 10^3/uL (130-400) L 10/25/23 05:42
Abs Immat Gran (auto) 0.2 10^3/uL (0-0.05) H 10/25/23 05:42
Neutrophils % 74.1 % (42.2-75.2) 10/25/23 05:42
Allergy/AdvReac Type Severity Reaction Status Date / Time
aprepitant [From Emend] Allergy Anaphylaxis Verified 10/23/23 17:51
codeine Allergy Vomiting Verified 10/23/23 17:51
fosaprepitant [From Emend] Allergy Anaphylaxis Verified 10/23/23 17:51
hydromorphone [From Dilaudid] Allergy Nausea Verified 10/23/23 17:51
Data Reviewed
-
Ultrasound: Report Reviewed by me
Labs: Labs Reviewed by me
Assessment / Plan
-
Assessment:: 53-year-old female with known rectal cancer currently on chemo, no surgery, presents to the emergency department due to shortness of breath and rectal bleeding. She also has elevated LFTs and bilirubin. Currently undergoing MRI/MRCP
and followed by GI.
Plan: Continue to watch H&H. Transfuse as needed. She has already undergone transfusion during this hospital course. If she continues to rectally bleeding she will need a CTA versus flexible sigmoidoscopy with APC to confirm the bleeding is from
the rectal mass. Will follow.
[2023-10-25] MEDS: SOLU-MEDROL PF 80 MG IV (13:30)
--- NOTE | 2023-10-25 15:11 | W.PN.HOSP.TC ---
Today's Communication/Plan
-
diet, NPO p MN
continue IV Abx
continue IVF
may consider ERCP
steroids on hold per d/w Onc and [facility]
Assessment / Plan
Assessment / Plan
Assessment:
Sepsis POA with resultant development of shock requiring pressors
Underlying immunocompromised host (cancer, trial meds)
- continue IVF
- continue pressors; wean as possible
- empiric Zosyn; follow cultures
- ID consulted
Abnormal LFTs
Direct Hyperbilirubinemia
- Unclear etiology.�Abrupt increase compared to labs done 10/16.
- US Abd and Doppler unremarkable
- concern of drug-induced hepatitis from [facility] trial meds - initially steroids started by onc but after discussion with [facility], put on hold
- MRI: Heterogeneous appearance of the liver, with multiple varying-sized lesions throughout the liver, with faint enhancement, and multiple areas of restricted diffusion throughout the liver and mel hepatis consistent with progression of
metastatic disease. Some of the lesions are consistent with treated lesions. These lesions were not clearly evident on the previous CT scan of the abdomen 2 months ago at which time there were subcentimeter hypodensities felt to represent treated
metastases. Significant increase in size of the Enlarged mel hepatis lymphadenopathy. Causes compression of the portal vein and the common bile duct. Mild distention of the common hepatic and intrahepatic ducts, increased. Subsequent gallbladder
wall thickening and pericholecystic edema, suggesting at least partial obstruction of the cystic duct.
- continue IV Abx
- diet ok for now; NPO p MN, may need ERCP
- trend LFTs
- GI following
Normocytic Anemia
Anemia of Chronic Disease
Acute Blood Loss Anemia from rectal bleeding; Known rectal cancer with metastases and history of polypectomy, XRT
- Hb 6.4 s/p 2 units, now 8.6
- GI/CRS following
- if significant recurrent bleeding, will need CTA vs flex-sig
Multifactorial dyspnea/tachycardia
- lungs clear on CT imaging, not on O2, sinus tach on monitor
- likely driven by pain, anemia, sepsis, hypotension, anxiety
- recent CT-A also neg PE
- trop neg
- Echo: normal
- Cards signed off
Known rectal cancer with metastases
- Onc following
- on clinical trial meds: [facility] clinical trial @ [facility]. [facility] contact - Dr. Cristino Romero ( ).
Hyponatremia, acute
- continue IVF
- likely partly driven by ADH response to hypotension
Hypothyroidism
- Likely combination of hypovolemia as noted above and under / un-treated hypothyroidism as patient discontinued her T4 supplementation.
- IVF support overnight as noted.
- Restart T4 supplementation at usual 25mcg dose.
- Follow for improvement in labs/lytes.
Acute thrombocytopenia
- likely consumptive from bleeding as well as malignancy, sepsis
- follow DIC panel
Chronic Pain Syndrome
- Secondary to malignancy.
- Continue pain control with tramadol
- allergy to Dilaudid per patient.
- Bowel regimen to prevent constipation.
DVT Prophylaxis
History of DVT/PE
- CTA 10/16 was negative for PE.
- Hold pharmacologic therapy given rectal bleeding.
- SCDs
Code Status:� Full
Total Critical Care Time 40 minutes. I was immediately available to the patient and staff. I personally examined, reviewed labs, diagnostic images/reports, interpretations, treatment plans, discussed patient care with other providers and family
or caregivers (if patient is unable to make decisions), entered orders as appropriate and documented the medical record.
Anticipated Discharge: > 48 hours
Subjective/Interval History
-
Date of Service: October 25, 2023
feels slightly improved, no abd pain
Objective Data
-
Labs:
Laboratory Results
10/25/23 10/25/23
05:42 10:16
WBC 8.2
Hgb 8.6 L D
Hct 26.0 L
Plt Count 100 L
PT 20.1 H
INR 1.73
Sodium 130 L
Potassium 3.8
Chloride 103
Carbon Dioxide 24
BUN 10
Creatinine 0.4 L
Glucose 106 H
Calcium 7.3 L
Total Bilirubin 7.0 H
AST 111 H
ALT 126 H
Alkaline Phosphatase 547 H
Vital Signs:
Vital Signs
Temp Pulse Resp BP Pulse Ox
97.6 F 81 15 92/69 97
10/25/23 10:56 10/25/23 14:00 10/25/23 14:00 10/25/23 14:00 10/25/23 14:00
I&O
10/24/23 10/25/23 10/26/23
06:59 06:59 06:59
Intake Total 120 / 120 2790 / 2790
Output Total 550 / 550 50 / 50
Balance -430 / -430 2740 / 2740
Physical Exam
-
General: No Apparent Distress
HEENT: Normocephalic and Atraumatic
Respiratory: Negative Wheezes or Rales
Cardiac: Regular Rhythm and S1/S2
GI: Soft
Genito-urinary: No Costovertebral Tender
Neuro: AO x 3
Hematologic / Lymphatic: No Lymphadenopathy
Psych: Calm
Data Reviewed
-
Critical Care Time (in minutes): 40
Labs: Labs Reviewed by me
[2023-10-25 17:28] LABS: Hemoglobin 9.6 g/dL (12.0-16.0)
[2023-10-26] VITALS (23 sets, daily range): BP systolic 98–143; BP diastolic 60–93; PULSE 83–91
[2023-10-26] MEDS: ZOSYN 50 IV ×5 (00:28→23:28)
[2023-10-26] MEDS: LR 1000 IV ×3 (02:45→23:28)
--- NOTE | 2023-10-26 03:34 | DOWNTIME ---
There was a [employer] Tax Downtime on 10/26/2023 from 0100 to 10/26/2023 at 0322. Downtime documentation of patient's care, including medication administrations, has been reconciled in the electronic record per guidelines. Refer to the
patient's paper chart under the miscellaneous tab to see printed paper medication records and downtime forms.
[2023-10-26 04:59] LABS: % Basophils 0.6 % (0-2); % Immature Granulocytes 1.1 % (0-0.5); % Lymphocytes 5.2 % (20.5-51.1); % Neutrophils 84.1 % (42.2-75.2); Absolute Immature Granulocytes 0.1 10^3/uL (0-0.05); Absolute Lymphocytes 0.4 10^3/uL (1.2-3.4); Absolute Monocytes 0.7 10^3/uL (0.1-0.6); Absolute Neutrophils 6.1 10^3/uL (1.4-6.5); Hematocrit 28.3 % (37.0-47.0); Hemoglobin 9.3 g/dL (12.0-16.0); Mean Corp Hgb Conc. 32.9 g/dL (33.0-37.0); Mean Corpuscular Hgb 28.2 pg (27.0-31.0); Mean Corpuscular Volume 85.8 fL (81.0-99.0); Mean Platelet Volume 9.9 fL (7.4-10.4); Nucleated Red Blood Cells % 0 %; Platelet Count 131 10^3/uL (130-400); Red Cell Dist. Width 14.5 % (11.5-14.5); White Blood Cell Count 7.3 10^3/uL (4.8-10.8)
[2023-10-26 05:19] LABS: INR 1.75; PT 20.2 Sec (11.4-14.6)
[2023-10-26] MEDS: SYNTHROID 25 MCG PO (05:50)
[2023-10-26] MEDS: ULTRAM 100 MG PO ×2 (05:50→18:27)
[2023-10-26 05:51] LABS: ALT (SGPT) 111 U/L (0-35); AST (SGOT) 103 U/L (14-36); Albumin 2.2 g/dl (3.5-5.0); Alkaline Phosphatase 546 U/L (38-126); Blood Urea Nitrogen 12 mg/dl (7-17); Calcium 7.9 mg/dl (8.4-10.2); Carbon Dioxide 27 mmol/L (22-30); Chloride 103 mmol/L (98-107); Estimated Creatinine Clearance 116 ml/min; Glucose 140 mg/dl (70-99); Sodium 135 mmol/L (135-145); Total Bilirubin 5.3 mg/dl (0.2-1.3); eGFR > 60.00
--- NOTE | 2023-10-26 07:31 | W.PN.ONC2 ---
Today's Communication / Plan
-
MRI reveals progression of mel hepatis adenopathy and mild intraductal biliary dilatation. Findings concerning for obstructive process to explain LFTs. Case d/w Dr. Romero at [facility] yesterday Dr. Lyman. Based on MRI, clinical picture is more
concerning for obstruction, less likely immune hepatitis. Steroids stopped and ERCP planned for later today. HgB 9.3 is stable.
Impression
Impression
Metastatic rectal cancer, hx polypectomy and XRT on Bintrafusp clinical trial x2 infusions ([facility] in [place], Dr. Romero)
Acute severe dyspnea/shortness of breath
RUQ abdominal/rectal pain
Increased rectal bleeding/clots
Concerns for hemolytic anemia
Concern for DIC
Fevers
Tachycardia
Hypotension/orthostasis requiring pressors
Elevated LFTs with jaundice
Plan
Plan
Dr. Cristino Romero contact information: cell phone # [phone]
Per ER documentation: 20:47: Received a call from patient's oncologist at the [facility] Dr. Cristino Romero, patient is on anti-PDL1 drug.�He informs me that the anticipated side effects of this drug could include pneumonitis, myocarditis, autoimmune
hepatitis.� Request that we obtain a CT noncontrast of the chest to evaluate for pneumonitis as well as cardiac troponin to evaluate for myocarditis.� I did discuss with him the patient's significantly acutely elevated liver enzymes and
hyperbilirubinemia, he does note that hemolytic anemia is an uncommon complication of these however given that it is a direct predominant hyperbilirubinemia, this is likely not the case, could be progression of hepatic lesions in which case she may
require GI intervention for ERCP and possible biliary stenting.� If identified to have pneumonitis and/or myocarditis would be recommended to start on high-dose steroids.
Subjective/Objective
Chief Complaint
ACS F/U
Subjective
No complaints. For ERCP today.
Vital Signs:
Vital Signs
Temp Pulse Resp BP Pulse Ox
98.1 F 83 13 100/60 93
10/26/23 04:14 10/26/23 06:30 10/26/23 06:30 10/26/23 06:30 10/26/23 06:00
Lab Results:
Laboratory Data
WBC 7.3 10^3/uL (4.8-10.8) 10/26/23 04:45
Hgb 9.3 g/dL (12.0-16.0) L 10/26/23 04:45
Plt Count 131 10^3/uL (130-400) D 10/26/23 04:45
PT 20.2 Sec (11.4-14.6) H 10/26/23 04:45
INR 1.75 10/26/23 04:45
eGFR > 60.00 10/26/23 04:45
Physical Exam
Cardiology: S1 and S2
Pulmonary: Clear
GI: Soft
[2023-10-26 08:35] LABS: CRP, Highly Sensitive > 15.00 mg/L
--- NOTE | 2023-10-26 08:37 | W.PN.UPDATE ---
Update Note
Progress Note Update
reviewed with patient and spouse. Plan for ERCP today with concern for CBD compression on MRI. All questions answered with review of risks and benefits.
[2023-10-26] MEDS: MORPHINE SULFATE 1 MG IV ×2 (09:27→10:19)
[2023-10-26] MEDS: NSS (PRESERVATIVE FREE) 10 ML IV (09:28)
[2023-10-26] MEDS: PROTONIX IV 40 MG IV (09:29)
--- NOTE | 2023-10-26 09:29 | W.PN.HOSP.TC ---
Today's Communication/Plan
-
continue IV Abx, continue IVF
continue pain control
monitor Hb
For ERCP today
Assessment / Plan
Assessment / Plan
Assessment:
Sepsis POA with resultant development of shock requiring pressors
Underlying immunocompromised host (cancer, trial meds)
- continue IVF
- continue pressors; wean as possible
- empiric Zosyn; follow cultures
- ID following
Abnormal LFTs
Direct Hyperbilirubinemia
- Unclear etiology.�Abrupt increase compared to labs done 10/16.
- US Abd and Doppler unremarkable
- concern of drug-induced hepatitis from [facility] trial meds - initially steroids started by onc but after discussion with [facility], put on hold
- MRI: Heterogeneous appearance of the liver, with multiple varying-sized lesions throughout the liver, with faint enhancement, and multiple areas of restricted diffusion throughout the liver and mel hepatis consistent with progression of
metastatic disease. Some of the lesions are consistent with treated lesions. These lesions were not clearly evident on the previous CT scan of the abdomen 2 months ago at which time there were subcentimeter hypodensities felt to represent treated
metastases. Significant increase in size of the Enlarged mel hepatis lymphadenopathy. Causes compression of the portal vein and the common bile duct. Mild distention of the common hepatic and intrahepatic ducts, increased. Subsequent gallbladder
wall thickening and pericholecystic edema, suggesting at least partial obstruction of the cystic duct.
- continue IV Abx
- NPO for ERCP today
- trend LFTs
- GI following
Normocytic Anemia
Anemia of Chronic Disease
Acute Blood Loss Anemia from rectal bleeding; Known rectal cancer with metastases and history of polypectomy, XRT
- Hb 6.4 s/p 2 units, now 9.3
- GI/CRS following
- if significant recurrent bleeding, will need CTA vs flex-sig
Multifactorial dyspnea/tachycardia
- lungs clear on CT imaging, not on O2, sinus tach on monitor
- likely driven by pain, anemia, sepsis, hypotension, anxiety
- recent CT-A also neg PE
- trop neg
- Echo: normal
- Cards signed off
Known rectal cancer with metastases
- Onc following
- on clinical trial meds: [facility] clinical trial @ [facility]. [facility] contact - Dr. Cristino Romero ( ).
Hyponatremia, acute
- continue IVF
- likely partly driven by ADH response to hypotension
Hypothyroidism
- Likely combination of hypovolemia as noted above and under / un-treated hypothyroidism as patient discontinued her T4 supplementation.
- IVF support overnight as noted.
- Restart T4 supplementation at usual 25mcg dose.
- Follow for improvement in labs/lytes.
Acute thrombocytopenia
- likely consumptive from bleeding as well as malignancy, sepsis
- follow DIC panel
Chronic Pain Syndrome
- Secondary to malignancy.
- Continue pain control with tramadol
- allergy to Dilaudid per patient.
- Bowel regimen to prevent constipation.
DVT Prophylaxis
History of DVT/PE
- CTA 10/16 was negative for PE.
- Hold pharmacologic therapy given rectal bleeding.
- SCDs
Code Status:�Full
Anticipated Discharge: > 48 hours
Subjective/Interval History
-
Date of Service: October 26, 2023
reports 7/10 rectal pain
bleeding stable, Hb stable
BP improving
for ERCP today
Objective Data
-
Labs:
Laboratory Results
10/26/23
04:45
WBC 7.3
Hgb 9.3 L
Hct 28.3 L
Plt Count 131 D
PT 20.2 H
INR 1.75
Sodium 135
Potassium 4.0
Chloride 103
Carbon Dioxide 27
BUN 12
Creatinine 0.3 L
Glucose 140 H
Calcium 7.9 L
Total Bilirubin 5.3 H
AST 103 H
ALT 111 H
Alkaline Phosphatase 546 H
Vital Signs:
Vital Signs
Temp Pulse Resp BP Pulse Ox
97.7 F 83 13 100/60 93
10/26/23 07:10 10/26/23 06:30 10/26/23 06:30 10/26/23 06:30 10/26/23 06:00
I&O
10/25/23 10/26/23 10/27/23
06:59 06:59 06:59
Intake Total 2790 / 2790 2980 / 2980
Output Total 50 / 50
Balance 2740 / 2740 2980 / 2980
Physical Exam
-
General: No Apparent Distress
HEENT: Normocephalic and Atraumatic
Respiratory: Clear to Auscultation; Negative Wheezes or Rales
Cardiac: Regular Rhythm and S1/S2
GI: Soft
Genito-urinary: No Costovertebral Tender
Musculoskeletal: No Edema
Neuro: AO x 3
Hematologic / Lymphatic: No Lymphadenopathy
Psych: Calm
Data Reviewed
-
Total Time Spent with Patient (in minutes): 42
Labs: Labs Reviewed by me
--- NOTE | 2023-10-26 10:34 | W.PN.CRS1 ---
Documented by User: Yandy Wakefield PA-C 10/26/23 10:39
Today's Communication / Plan
-
no plans for surgery
monitor hgb
Assessment/Plan
-
stage IV widely metastatic mid to distal rectal cancer with anal bleeding
1. For ERCP today with GI.
2. Hgb 9.3, stable.
3. No plans for surgical intervention at this time. If she continues to bleed, she may need a flex sig with APC.
Subjective Data
Subjective Data
Date of Service: October 26, 2023
Patient states she feels 'pretty good'. She had some bleeding but no bowel movements. She has no pain. She is not that hungry.
Objective Data
-
Vital Signs
Temp Pulse Resp BP Pulse Ox
97.7 F 80 20 112/60 93
10/26/23 07:10 10/26/23 10:01 10/26/23 10:01 10/26/23 10:01 10/26/23 10:08
Intake & Output
10/25/23 10/26/23 10/27/23
06:59 06:59 06:59
Intake Total 2790 / 2790 2980 / 2980
Output Total 50 / 50
Balance 2740 / 2740 2980 / 2980
Intake:
Oral fluids 540 / 540 480 / 480
IV fluids (Total) 1500 / 1500 2300 / 2300
IV piggybacks 250 / 250 200 / 200
Blood Product Amount Infused ( 500 / 500
mL)
Packed Rbc Leukoreduced Unit 250 / 250
[id number]
Packed Rbc Leukoreduced Unit 250 / 250
[id number]
Output:
Straight cath output 50 / 50
Other:
Number of approximated MODERATE 1 2
amounts of urine
Number of approximated LARGE 1
amounts of urine
Lab Results
10/26/23 04:45
10/26/23 04:45
Physical Exam
-
General: No Acute Distress and AOx3
Abdomen: Soft, Non Distended and Non Tender

Documented by User: Spike Wiley MD 10/26/23 13:59
Subjective Data
Subjective Data
Date of Service: October 26, 2023
Patient states she feels 'pretty good'. She had some bleeding but no bowel movements. She has no pain. She is not that hungry.
VSS
Her abdomen is soft and nontender.
Her hemoglobin is 9.2 g/dL.
There is no evidence of active bleeding. If she bleeds, would consider flexible sigmoidoscopy with APC.
She is for ERCP today with Dr. Arias.
--- NOTE | 2023-10-26 13:53 | W.PN.ID1 ---
Date of Service
Date of Service: October 26, 2023
Today's Communication
Continue Zosyn.
Assessment / Plan
# Immunocompromised host
Stage IV recta CA (mets to liver, lungs,LN) on clinical trial with Bintrafusp
# Cholecystitis, biliary obstruction due to enlarged metastatic LN compression, elevated LFT's
# Fever - resolved
# Hypotension - resolved
# Rectal bleeding with blood loss anemia
-s/p ERCP, sphincterotomy, plastic stent to left hepatic duct 10/26/23
- blood cx's neg to date
- Continue Zosyn (d3)
-Follow LFT's.
# Additional Past Medical History:
Stage IV rectal ca with pulmonary, liver, LN mets currently on Bintrafusp clinical trial
hypothyroidism
h/o PE
endometriosis
pituitary adenoma
port placement
NOAM
Chief Complaint
-: Other (jaundice)
Vital Signs / Physical Exam
Vital Signs
Vital Signs
Temp Pulse Resp BP Pulse Ox
97.2 F 80 20 112/60 100
10/26/23 13:23 10/26/23 10:01 10/26/23 10:01 10/26/23 10:01 10/26/23 13:38
Physical Exam
Constitutional: No Acute Distress
Gastrointestinal: Soft, Non Tender and Non Distended
Objective Data
Lab Data
Lab Results
10/26/23 04:45
10/26/23 04:45
PT 20.2 Sec (11.4-14.6) H 10/26/23 04:45
INR 1.75 10/26/23 04:45
Estimated Creat Clear 116 ml/min 10/26/23 04:45
Lactic Acid 1.2 mmol/L (0.7-2.0) 03/25/24 21:30
Total Bilirubin 5.3 mg/dl (0.2-1.3) H 10/26/23 04:45
AST 103 U/L (14-36) H 10/26/23 04:45
ALT 111 U/L (0-35) H 10/26/23 04:45
Alkaline Phosphatase 546 U/L (38-126) H 10/26/23 04:45
Most recent labs reviewed.
Micro Results:
10/24/23 06:11 Blood Culture - Preliminary
Blood/Venous No Growth in 48 hours- Final report to follow
10/24/23 05:59 Blood Culture - Preliminary
Blood/Venous No Growth in 48 hours- Final report to follow
10/24/23 05:29 Urine Culture - Final
Urine NO GROWTH
10/24/23 08:35 Influenza Types A & B (JASON) - Final
Nasal Swab Negative for Influenza A & B, NAAT
Negative results must be combined with clinical observations
and patient history.
Nucleic Acid Amplification test (NAAT)performed on the
[employer] platform.
10/25/23 MRCP: Heterogeneous appearance of the liver, with multiple varying-sized lesions throughout the liver, with faint enhancement, and multiple areas of restricted diffusion throughout the liver and mel hepatis consistent with progression of
metastatic disease. Some of the lesions are consistent with treated lesions. These lesions were not clearly evident on the previous CT scan of the abdomen 2 months ago at which time there were subcentimeter hypodensities felt to represent treated
metastases. Significant increase in size of the Enlarged mel hepatis lymphadenopathy. Causes compression of the portal vein and the common bile duct. Mild distention of the common hepatic and intrahepatic ducts, increased. Subsequent gallbladder
wall thickening and pericholecystic edema, suggesting at least partial obstruction of the cystic duct
10/24/23 Abd US dopplers: At least 2 hypoechoic lesions within the liver, measuring up to 3.3 cm in diameter, most likely representing hepatic metastases.
10/23/23 Renal US: Sludge filled gallbladder. No sonographic findings to suggest acute cholecystitis. No evidence for intrahepatic biliary ductal dilation. Common bile duct measures up to 6 mm, which is top-normal. Fatty infiltration of the liver.
Questionable round lesion within the superior right lobe of the liver. As warranted, consideration for follow-up CT of the abdomen.
10/17/[address]: SEVERE BILATERAL PULMONARY METASTATIC DISEASE which has progressed since 08/12/2023.
[2023-10-26] MEDS: ZOFRAN 4 MG IV (14:00)
[2023-10-26] MEDS: MORPHINE SULFATE 2 MG IV ×2 (14:39→23:55)
--- NOTE | 2023-10-26 14:51 | PTCARENOTE ---
Patient back from ERCP drowsy, responding to questions. Complaining of nausea- Zofran administered in procedural area. Patient complaining of abdominal pain radiating to back. Morphine 2mg IV administered. Patient in bed with family at bedside.
[2023-10-26 17:42] LABS: Haptoglobin 487 mg/dL (30-200)
--- NOTE | 2023-10-26 19:28 | PTCARENOTE ---
Patient stated that every time she uses the bathroom a small amount of dark colored blood is observed in the toilet. Hgb stable today. Patient has received 2 units of PRBCs during this admission . Information endorsed to retail shift manager RN.
[2023-10-27] VITALS (11 sets, daily range): BP systolic 117–159; BP diastolic 65–96; PULSE 82; O2SAT 95
[2023-10-27] MEDS: SYNTHROID 25 MCG PO (05:02)
[2023-10-27] MEDS: ZOSYN 50 IV (05:02)
[2023-10-27] MEDS: ULTRAM 100 MG PO ×3 (05:04→20:32)
[2023-10-27] MEDS: ZOFRAN 4 MG IV (05:15)
[2023-10-27 05:20] LABS: % Basophils 0.6 % (0-2); % Eosinophils 0.3 % (0-6); % Immature Granulocytes 0.6 % (0-0.5); % Lymphocytes 8.9 % (20.5-51.1); % Monocytes 9.8 % (1.7-9.3); % Neutrophils 79.8 % (42.2-75.2); Absolute Basophils 0.1 10^3/uL (0-0.2); Absolute Immature Granulocytes 0.1 10^3/uL (0-0.05); Absolute Lymphocytes 0.8 10^3/uL (1.2-3.4); Absolute Monocytes 0.9 10^3/uL (0.1-0.6); Absolute Neutrophils 6.9 10^3/uL (1.4-6.5); Hematocrit 30.7 % (37.0-47.0); Hemoglobin 10.1 g/dL (12.0-16.0); Mean Corp Hgb Conc. 32.9 g/dL (33.0-37.0); Mean Corpuscular Hgb 28.2 pg (27.0-31.0); Mean Corpuscular Volume 85.8 fL (81.0-99.0); Mean Platelet Volume 10.4 fL (7.4-10.4); Nucleated Red Blood Cells % 0 %; Platelet Count 142 10^3/uL (130-400); Red Blood Cell Count 3.58 10^6/uL (4.20-5.40); Red Cell Dist. Width 14.5 % (11.5-14.5); White Blood Cell Count 8.6 10^3/uL (4.8-10.8)
[2023-10-27 05:39] LABS: INR 1.37; PT 16.9 Sec (11.4-14.6)
[2023-10-27 05:58] LABS: ALT (SGPT) 106 U/L (0-35); AST (SGOT) 71 U/L (14-36); Albumin 2.4 g/dl (3.5-5.0); Alkaline Phosphatase 622 U/L (38-126); Blood Urea Nitrogen 9 mg/dl (7-17); Calcium 7.8 mg/dl (8.4-10.2); Carbon Dioxide 26 mmol/L (22-30); Chloride 100 mmol/L (98-107); Estimated Creatinine Clearance 116 ml/min; Glucose 82 mg/dl (70-99); Potassium 3.4 mmol/L (3.5-5.1); Sodium 133 mmol/L (135-145); Total Bilirubin 2.6 mg/dl (0.2-1.3); Total Protein 5.3 g/dl (6.3-8.2); eGFR > 60.00
--- NOTE | 2023-10-27 09:21 | W.PN.ID1 ---
Date of Service
Date of Service: October 27, 2023
Today's Communication
Transition Zosyn (d4) to Augmentin 875 mg po bid through 10/30/23.
Assessment / Plan
# Immunocompromised host
Stage IV recta CA (mets to liver, lungs,LN) on clinical trial with Bintrafusp
# Cholecystitis, biliary obstruction due to enlarged metastatic LN compression, elevated LFT's
# Fever - resolved
# Hypotension - resolved
# Rectal bleeding with blood loss anemia
-s/p ERCP, sphincterotomy, plastic stent to left hepatic duct 10/26/23
-LFT's trending down
- blood cx's neg to date
- Transition Zosyn (d4) to Augmentin 875 mg po bid through 10/30/23.
# Additional Past Medical History:
Stage IV rectal ca with pulmonary, liver, LN mets currently on Bintrafusp clinical trial
hypothyroidism
h/o PE
endometriosis
pituitary adenoma
port placement
NOAM
Chief Complaint
-: Other (jaundice)
Subjective / Review of Systems
Some RUQ pain after stent placed.
Rectal bleeding slowed down today.
Vital Signs / Physical Exam
Vital Signs
Vital Signs
Temp Pulse Resp BP Pulse Ox
97.5 F 81 16 159/95 95
10/27/23 07:32 10/27/23 08:01 10/27/23 08:01 10/27/23 08:00 10/27/23 08:01
Physical Exam
Constitutional: No Acute Distress
Gastrointestinal: Soft, Tender (RUQ) and Non Distended
Extremities: Negative Edema
Objective Data
Lab Data
Lab Results
10/27/23 05:11
10/27/23 05:11
PT 16.9 Sec (11.4-14.6) H 10/27/23 05:11
INR 1.37 10/27/23 05:11
Estimated Creat Clear 116 ml/min 10/27/23 05:11
Lactic Acid 1.2 mmol/L (0.7-2.0) 10/24/23 21:30
Total Bilirubin 2.6 mg/dl (0.2-1.3) H D 10/27/23 05:11
AST 71 U/L (14-36) H 10/27/23 05:11
ALT 106 U/L (0-35) H 10/27/23 05:11
Alkaline Phosphatase 622 U/L (38-126) H 10/27/23 05:11
Most recent labs reviewed.
Micro Results:
10/24/23 06:11 Blood Culture - Preliminary
Blood/Venous No Growth in 72 hours- Final report to follow
10/24/23 05:59 Blood Culture - Preliminary
Blood/Venous No Growth in 72 hours- Final report to follow
10/24/23 05:29 Urine Culture - Final
Urine NO GROWTH
10/24/23 08:35 Influenza Types A & B (JASON) - Final
Nasal Swab Negative for Influenza A & B, NAAT
Negative results must be combined with clinical observations
and patient history.
Nucleic Acid Amplification test (NAAT)performed on the
[employer] platform.
10/25/23 MRCP: Heterogeneous appearance of the liver, with multiple varying-sized lesions throughout the liver, with faint enhancement, and multiple areas of restricted diffusion throughout the liver and mel hepatis consistent with progression of
metastatic disease. Some of the lesions are consistent with treated lesions. These lesions were not clearly evident on the previous CT scan of the abdomen 2 months ago at which time there were subcentimeter hypodensities felt to represent treated
metastases. Significant increase in size of the Enlarged mel hepatis lymphadenopathy. Causes compression of the portal vein and the common bile duct. Mild distention of the common hepatic and intrahepatic ducts, increased. Subsequent gallbladder
wall thickening and pericholecystic edema, suggesting at least partial obstruction of the cystic duct
10/24/23 Abd US dopplers: At least 2 hypoechoic lesions within the liver, measuring up to 3.3 cm in diameter, most likely representing hepatic metastases.
10/23/23 Renal US: Sludge filled gallbladder. No sonographic findings to suggest acute cholecystitis. No evidence for intrahepatic biliary ductal dilation. Common bile duct measures up to 6 mm, which is top-normal. Fatty infiltration of the liver.
Questionable round lesion within the superior right lobe of the liver. As warranted, consideration for follow-up CT of the abdomen.
10/17/[address]: SEVERE BILATERAL PULMONARY METASTATIC DISEASE which has progressed since 08/12/2023.
[2023-10-27] MEDS: KCL 40 MEQ PO (09:34)
[2023-10-27] MEDS: NSS (PRESERVATIVE FREE) 10 ML IV (09:34)
[2023-10-27] MEDS: PROTONIX IV 40 MG IV (09:35)
[2023-10-27] MEDS: MORPHINE SULFATE 2 MG IV ×2 (09:35→16:14)
--- NOTE | 2023-10-27 10:19 | W.PN.GI.CBS2 ---
Addendum entered and electronically signed by Elijah Arias MD 10/27/23 11:25:
I saw and examined the patient.
The PA's note was reviewed and I agree with the note.
Comment:
ERCP yesterday, stent placed. Mild dilation prox CBD/hepatic ducts. LFT somewhat improved today, bili down to 2, alk phos elevated. Hgb remains stable. F/u in my office in 8-10 weeks for stent mx. GI will s/o, pls call with questions.
Original Note:
Today's Communication / Plan
-
S/p ERCP with improved LFT's
some pain but also chronic pain with mets on Morphine and Tramadol
tolerating clear diet asking for increased diet will advance to low fat
if still with pain or symptoms consider HIDA with GBWT and fluid noted on MRI
INR improved to 1.37
abx per ID
hbg stable 10.1 still with some rectal bleeding but improved since admission likely related to known rectal CA cont to monitor
oncology has reviewed with [facility] this week with admission
Assessment / Plan
-
53-year-old female with history of metastatic rectal cancer stage IV dx 2021, hypothyroidism, pituitary adenoma, history of DVT and PE, GERD and endometriosis presents to the emergency room with shortness of breath. Patient is currently enrolled in
trial at [facility] and is followed by Dr. Cristino Romero and is currently on Entinostat, NHS-ILIS and Bintrafuspalf which are trial medications that she started at the end of August. The patient states that she started to notice that she had increasing
shortness of breath. Pt admits to intermittent bleeding since start of trial now worse and also new LFT elevation. After admission noted fever and hypotension requiring pressors.
10/23 US doppler
1. At least 2 hypoechoic lesions within the liver, measuring up to 3.3 cm in diameter, most likely representing hepatic metastases.
2. Normal spectral Doppler waveform analysis of the hepatic vasculature.
10/25/23 MRI abdomen
1. Heterogeneous appearance of the liver, with multiple varying-sized lesions throughout the liver, with faint enhancement, and multiple areas of restricted diffusion throughout the liver and mel hepatis consistent with progression of metastatic
disease. Some of the lesions are consistent with treated lesions. These lesions were not clearly evident on the previous CT scan of the abdomen 2 months ago at which time there were subcentimeter hypodensities felt to represent treated metastases.
2. Significant increase in size of the Enlarged mel hepatis lymphadenopathy. Causes compression of the portal vein and the common bile duct. Mild distention of the common hepatic and intrahepatic ducts, increased. Subsequent gallbladder wall
thickening and pericholecystic edema, suggesting at least partial obstruction of the cystic duct. Consider nuclear medicine HIDA scan to fully evaluate.
10/25 ERCP - A medium amount of food (residue) in the stomach. The major papilla appeared normal.
- The left main hepatic duct, right main hepatic duct and right intrahepatic branches were mildly dilated.
- A biliary sphincterotomy was performed. One plastic stent was placed into the right hepatic duct.
Impression:
Metastatic Rectal Cancer on Trial Meds at [facility] (no hx prior resection in past)
Elevated LFTs (new)
mild right upper quadrant pain
MR with GBWT and fluid
anemia
Rectal bleeding
SOB
hypotension requiring pressors now off
Fever
coagulopathy
Plan:
S/p ERCP with improved LFT's
some pain but also chronic pain with mets on Morphine and Tramadol
tolerating clear diet asking for increased diet will advance to low fat
if still with pain or symptoms consider HIDA with GBWT and fluid noted on MRI
INR improved to 1.37
abx per ID
hbg stable 10.1 still with some rectal bleeding but improved since admission likely related to known rectal CA cont to monitor
oncology has reviewed with [facility] this week with admission
Subjective
Subjective
Date of Service: October 27, 2023
some abdominal pain and some chronic pain with recent morphine and tramadol for pain control tolerating some clears asking for advance diet
Objective
Data Reviewed
Laboratory Data:
Laboratory Results
10/27/23 05:11
10/27/23 05:11
Laboratory Results
PT 16.9 Sec (11.4-14.6) H 10/27/23 05:11
INR 1.37 10/27/23 05:11
Total Bilirubin 2.6 mg/dl (0.2-1.3) H D 10/27/23 05:11
AST 71 U/L (14-36) H 10/27/23 05:11
ALT 106 U/L (0-35) H 10/27/23 05:11
Alkaline Phosphatase 622 U/L (38-126) H 10/27/23 05:11
Vital Signs and I&O:
Vital Signs
Temp Pulse Resp BP Pulse Ox
97.5 F 81 16 159/95 95
10/27/23 07:32 10/27/23 08:01 10/27/23 08:01 10/27/23 08:00 10/27/23 08:01
I&O
10/26/23 10/27/23 10/28/23
06:59 06:59 06:59
Intake Total 2980 / 2980 2700 / 2700
Balance 2980 / 2980 2700 / 2700
Physical Exam
Physical Exam
HEENT: Other (mimimal jaundice )
Cardiology: Normal Sinus Rhythm
Pulmonary: Clear
GI: Soft, Distended (mild ) and Tender (minimal )
Extremities: No Edema
Neuro: Non Focal
--- NOTE | 2023-10-27 10:41 | W.PN.CRS1 ---
Today's Communication / Plan
-
trend hgb
Assessment/Plan
-
stage IV widely metastatic mid to distal rectal cancer with anal bleeding
1. On clears, continue.
2. Hgb 10.1, stable.
3. No plans for surgical intervention at this time. If she continues to bleed, she may need a flex sig with APC.
Subjective Data
Subjective Data
Date of Service: October 27, 2023
Patient states she has nausea. She is still bleeding. She has bled 5 to 6 times since yesterday. She has not had a bowel movement in 8 days.
Objective Data
-
Vital Signs
Temp Pulse Resp BP Pulse Ox
97.5 F 81 16 159/95 95
10/27/23 07:32 10/27/23 08:01 10/27/23 08:01 10/27/23 08:00 10/27/23 08:01
Intake & Output
10/26/23 10/27/23 10/28/23
06:59 06:59 06:59
Intake Total 2980 / 2980 2700 / 2700
Balance 2980 / 2980 2700 / 2700
Intake:
Oral fluids 480 / 480 200 / 200
IV fluids (Total) 2300 / 2300 2400 / 2400
NSS 100 / 100
IV piggybacks 200 / 200 100 / 100
Other:
Number of approximated MODERATE 2 3
amounts of urine
Lab Results
10/27/23 05:11
10/27/23 05:11
Physical Exam
-
General: No Acute Distress and AOx3
Abdomen: Soft, Non Distended and Non Tender
Skin: Warm and Dry
[2023-10-27] MEDS: AUGMENTIN 875 MG/125 MG 1 TABLET PO ×2 (10:55→20:25)
[2023-10-27] MEDS: LR 1000 IV (10:55)
--- NOTE | 2023-10-27 11:12 | W.PN.ONC ---
Today's Communication / Plan
-
Clinical trial medication anti-PDL1 drug He informs me that the anticipated side effects of this drug could include pneumonitis, myocarditis, autoimmune hepatitis.�
No evidence of pneumonitis on CT scan with multiple pulmonary metastases unchanged 10/22
Status post biliary stent improvement in T. bili to 2.6
Trace rectal bleeding hemoglobin improved to 10.1
Negative troponins
Continuing to improve
Impression
Impression
Metastatic rectal cancer, hx polypectomy and XRT on Bintrafusp clinical trial x2 infusions ([facility] in [place], Dr. Romero)
Acute severe dyspnea/shortness of breath
RUQ abdominal/rectal pain
Increased rectal bleeding/clots
Concerns for hemolytic anemia
Concern for DIC
Fevers
Tachycardia
Hypotension/orthostasis requiring pressors
Elevated LFTs with jaundice
Plan
Plan
Dr. Cristino Romero contact information: cell phone # [phone]
Per ER documentation:
Subjective/Objective
Subjective/Objective
Continues to have mild nausea intermittently but generally feels improved. Denies dyspnea
Vital Signs:
Vital Signs
Temp Pulse Resp BP Pulse Ox
97.5 F 81 18 154/95 95
10/27/23 07:32 10/27/23 10:04 10/27/23 10:04 10/27/23 10:04 10/27/23 08:01
Physical Exam
HEENT: jaundice
Cardiology: Normal Sinus Rhythm
Pulmonary: Clear
GI: Soft, Distended (mild ) and Tender (minimal )
Extremities: No Edema
Neuro: Non Focal
Lab Results:
Laboratory Data
WBC 8.6 10^3/uL (4.8-10.8) 10/27/23 05:11
Hgb 10.1 g/dL (12.0-16.0) L 10/27/23 05:11
Plt Count 142 10^3/uL (130-400) 10/27/23 05:11
PT 16.9 Sec (11.4-14.6) H 10/27/23 05:11
INR 1.37 10/27/23 05:11
eGFR > 60.00 10/27/23 05:11
--- NOTE | 2023-10-27 13:53 | W.PN.HOSP.TC ---
Today's Communication/Plan
-
PO pain meds
cap IVF
PO Abx
tx to floors, repeat labs in AM. Possible DC in 24 hours
PT/OT
Assessment / Plan
Assessment / Plan
Assessment:
Sepsis POA with resultant development of shock requiring pressors
Underlying immunocompromised host (cancer, trial meds)
- resolved; off pressors and IVF
Abnormal LFTs
Direct Hyperbilirubinemia
- Unclear etiology.�Abrupt increase compared to labs done 10/16.
- US Abd and Doppler unremarkable
- concern of drug-induced hepatitis from [facility] trial meds - initially steroids started by onc but after discussion with [facility], put on hold
- MRI: Heterogeneous appearance of the liver, with multiple varying-sized lesions throughout the liver, with faint enhancement, and multiple areas of restricted diffusion throughout the liver and mel hepatis consistent with progression of
metastatic disease. Some of the lesions are consistent with treated lesions. These lesions were not clearly evident on the previous CT scan of the abdomen 2 months ago at which time there were subcentimeter hypodensities felt to represent treated
metastases. Significant increase in size of the Enlarged mel hepatis lymphadenopathy. Causes compression of the portal vein and the common bile duct. Mild distention of the common hepatic and intrahepatic ducts, increased. Subsequent gallbladder
wall thickening and pericholecystic edema, suggesting at least partial obstruction of the cystic duct.
- s/p ERCP 10/25 with plastic stent placement into right hepatic duct
- complete Abx: Augmentin 875 mg po bid through 10/30/23 as per ID
- trend LFTs which show improvement
- GI signed off - f/u in office in 8 weeks for stent management.
Normocytic Anemia
Anemia of Chronic Disease
Acute Blood Loss Anemia from rectal bleeding; Known rectal cancer with metastases and history of polypectomy, XRT
- Hb 6.4 s/p 2 units, now 10.1
- GI/CRS following
- if significant recurrent bleeding, will need CTA vs flex-sig
- d/w patient to consider XRT to area - she will follow up with Rad/Onc as outpatient
Multifactorial dyspnea/tachycardia
- lungs clear on CT imaging, not on O2, sinus tach on monitor
- likely driven by pain, anemia, sepsis, hypotension, anxiety
- recent CT-A also neg PE
- trop neg
- Echo: normal
- Cards signed off
Known rectal cancer with metastases
- on clinical trial meds: [facility] clinical trial @ [facility]. [facility] contact - Dr. Cristino Romero ( ).
- follow up [facility] next week
Hyponatremia, acute
- likely partly driven by ADH response to hypotension
- improved with IVF
Hypothyroidism
- Likely combination of hypovolemia as noted above and under / un-treated hypothyroidism as patient discontinued her T4 supplementation.
- IVF support overnight as noted.
- Restart T4 supplementation at usual 25mcg dose.
- Follow for improvement in labs/lytes.
Acute thrombocytopenia
- likely consumptive from bleeding as well as malignancy, sepsis
- now resolved
- no evidence of DIC
Chronic Pain Syndrome
- Secondary to malignancy.
- Continue pain control with tramadol/Morphine
- patient refused Oxy and Dilaudid
- start Miralax
DVT Prophylaxis
History of DVT/PE
- CTA 10/16 was negative for PE.
- Hold pharmacologic therapy given rectal bleeding.
- SCDs
Code Status:�Full
Dispo: tx to floors, repeat labs in AM. Possible DC in 24 hours
Anticipated Discharge: Within 24 hours
Subjective/Interval History
-
Date of Service: October 27, 2023
s/p ERCP with stent
doing well
rectal pain stable, bleeding improving, Hb 10
Objective Data
-
Labs:
Laboratory Results
10/27/23
05:11
WBC 8.6
Hgb 10.1 L
Hct 30.7 L
Plt Count 142
PT 16.9 H
INR 1.37
Sodium 133 L
Potassium 3.4 L
Chloride 100
Carbon Dioxide 26
BUN 9
Creatinine 0.4 L
Glucose 82
Calcium 7.8 L
Total Bilirubin 2.6 H D
AST 71 H
ALT 106 H
Alkaline Phosphatase 622 H
Vital Signs:
Vital Signs
Temp Pulse Resp BP Pulse Ox
97.2 F 81 18 154/95 95
10/27/23 11:14 10/27/23 10:04 10/27/23 10:04 10/27/23 10:04 10/27/23 08:01
I&O
10/26/23 10/27/23 10/28/23
06:59 06:59 06:59
Intake Total 2980 / 2980 2700 / 2700
Balance 2980 / 2980 2700 / 2700
Physical Exam
-
General: No Apparent Distress and Appears Chronically Ill
HEENT: Normocephalic and Atraumatic
Respiratory: Negative Wheezes or Rales
Cardiac: Regular Rhythm and S1/S2
GI: Soft and Tender (mild RUQ)
Genito-urinary: No Costovertebral Tender
Musculoskeletal: No Edema
Neuro: AO x 3
Psych: Calm
Data Reviewed
-
Total Time Spent with Patient (in minutes): 41
Labs: Labs Reviewed by me
--- NOTE | 2023-10-27 15:07 | CM ---
Patient with Hx rectal cancer with metastases, on clinical trial investigational med, with Port in place, with Dx sepsis, Abnormal LFTs, Direct Hyperbilirubinemia s/p ERCP 10/25 with stent placement. Room air. PT & OT Evals; no needs.
Spoke with patient and offered VN for nurse; patient declined saying she does not need nurse check or PT at home and has support from family members.
No CM d/c needs identified.
Plan home.
[2023-10-27] MEDS: MIRALAX 17 GRAMS PO (16:08)
[2023-10-28] VITALS (21 sets, daily range): BP systolic 20–135; BP diastolic 62–83; BMI 28.6
[2023-10-28] MEDS: SYNTHROID 25 MCG PO (06:35)
[2023-10-28 07:12] LABS: % Basophils 0.9 % (0-2); % Eosinophils 2.5 % (0-6); % Immature Granulocytes 0.8 % (0-0.5); % Lymphocytes 9.4 % (20.5-51.1); % Monocytes 14.4 % (1.7-9.3); Absolute Basophils 0.1 10^3/uL (0-0.2); Absolute Eosinophils 0.2 10^3/uL (0-0.7); Absolute Immature Granulocytes 0.1 10^3/uL (0-0.05); Absolute Lymphocytes 0.6 10^3/uL (1.2-3.4); Absolute Monocytes 0.9 10^3/uL (0.1-0.6); Absolute Neutrophils 4.6 10^3/uL (1.4-6.5); Hematocrit 30.5 % (37.0-47.0); Mean Corp Hgb Conc. 32.8 g/dL (33.0-37.0); Mean Corpuscular Hgb 28.1 pg (27.0-31.0); Mean Corpuscular Volume 85.7 fL (81.0-99.0); Mean Platelet Volume 10.3 fL (7.4-10.4); Nucleated Red Blood Cells % 0 %; Platelet Count 154 10^3/uL (130-400); Red Blood Cell Count 3.56 10^6/uL (4.20-5.40); Red Cell Dist. Width 14.8 % (11.5-14.5); White Blood Cell Count 6.4 10^3/uL (4.8-10.8)
[2023-10-28 07:14] LABS: INR 1.23; PT 15.6 Sec (11.4-14.6)
[2023-10-28 08:20] LABS: ALT (SGPT) 68 U/L (0-35); AST (SGOT) 37 U/L (14-36); Albumin 2.4 g/dl (3.5-5.0); Alkaline Phosphatase 504 U/L (38-126); Blood Urea Nitrogen 5 mg/dl (7-17); Calcium 7.9 mg/dl (8.4-10.2); Carbon Dioxide 27 mmol/L (22-30); Chloride 99 mmol/L (98-107); Estimated Creatinine Clearance 117 ml/min; Glucose 83 mg/dl (70-99); Potassium 3.9 mmol/L (3.5-5.1); Sodium 131 mmol/L (135-145); Total Bilirubin 2.1 mg/dl (0.2-1.3); Total Protein 5.2 g/dl (6.3-8.2); eGFR > 60.00
[2023-10-28] MEDS: NSS (PRESERVATIVE FREE) IV (08:22)
--- NOTE | 2023-10-28 10:21 | W.PN.CRS1 ---
Addendum entered and electronically signed by Delvin Alexandra MD 10/28/23 12:29:
I saw and examined the patient.
The PA's note was reviewed and I agree with the note.
Comment:
Seen earlier with PA.
This is low-volume bleeding. Occasional flatus. No BMs for 10 days. Denies nausea or vomiting.
Vitals reasonable. Hemoglobin stable at 10.
Abdomen proximal mildly distended. Nontender. No masses.
Hemoglobin stable. No evidence for active bleeding.
I am concerned about the lack of BMs. Gastrografin enema ordered.
Later in the morning the Gastrografin enema was performed and I did review the images and report. I discussed at with Dr. Víctor mathew of radiology. There is evidence for narrowing in the rectum most likely due to the tumor. The contrast did get
above the tumor. The patient did not tolerate the procedure to well. I am concerned about impending obstruction.
Will communicate with the patient shortly about her situation. There may be a role for flexible sigmoidoscopy to better assess prior to coming to any conclusions.
Original Note:
Today's Communication / Plan
-
gastrogaffin enema
Assessment/Plan
-
stage IV widely metastatic mid to distal rectal cancer with anal bleeding
1. Given lack of BM/distention, will send down for a gastrogaffin enema to rule out obstruction/stricture.
2. Hgb 10.0, stable.
3. Plans to follow post gastrogaffin enema.
Subjective Data
Subjective Data
Date of Service: October 28, 2023
Patient states she still has some bleeding. She has flatus but no bowel movements now for 10 days. She feels a little distended.
Objective Data
-
Vital Signs
Temp Pulse Resp BP Pulse Ox
98.1 F 83 18 123/76 96
10/28/23 07:50 10/28/23 07:50 10/28/23 07:50 10/28/23 07:50 10/28/23 09:33
Intake & Output
10/27/23 10/28/23 10/29/23
06:59 06:59 06:59
Intake Total 2700 / 2700 220 / 220
Balance 2700 / 2700 220 / 220
Intake:
Oral fluids 200 / 200 220 / 220
IV fluids (Total) 2400 / 2400
NSS 100 / 100
IV piggybacks 100 / 100
Other:
Number of approximated MODERATE 3 3
amounts of urine
Number of approximated LARGE 1
amounts of urine
Lab Results
10/28/23 06:50
10/28/23 06:50
Physical Exam
-
General: No Acute Distress and AOx3
Abdomen: Soft, Distended (mild) and Non Tender
--- NOTE | 2023-10-28 10:34 | W.PN.HOSP.TC ---
Today's Communication/Plan
-
await CRS recs after barium enema
continue NPO for now
continue PO Abx
Assessment / Plan
Assessment / Plan
Assessment:
Sepsis POA with resultant development of shock requiring pressors
Underlying immunocompromised host (cancer, trial meds)
- resolved; off pressors and IVF
Abnormal LFTs
Direct Hyperbilirubinemia
- Unclear etiology.�Abrupt increase compared to labs done 10/16.
- US Abd and Doppler unremarkable
- concern of drug-induced hepatitis from [facility] trial meds - initially steroids started by onc but after discussion with [facility], put on hold
- MRI: Heterogeneous appearance of the liver, with multiple varying-sized lesions throughout the liver, with faint enhancement, and multiple areas of restricted diffusion throughout the liver and mel hepatis consistent with progression of
metastatic disease. Some of the lesions are consistent with treated lesions. These lesions were not clearly evident on the previous CT scan of the abdomen 2 months ago at which time there were subcentimeter hypodensities felt to represent treated
metastases. Significant increase in size of the Enlarged mel hepatis lymphadenopathy. Causes compression of the portal vein and the common bile duct. Mild distention of the common hepatic and intrahepatic ducts, increased. Subsequent gallbladder
wall thickening and pericholecystic edema, suggesting at least partial obstruction of the cystic duct.
- s/p ERCP 10/25 with plastic stent placement into right hepatic duct
- complete Abx: Augmentin 875 mg po bid through 10/30/23 as per ID
- trend LFTs which show improvement; repeat outpatient next week (script in chart)
- GI signed off - f/u in office in 8 weeks for stent management.
Normocytic Anemia
Anemia of Chronic Disease
Acute Blood Loss Anemia from rectal bleeding; Known rectal cancer with metastases and history of polypectomy, XRT
- Hb 6.4 s/p 2 units, now 10.0
- GI/CRS following
- if significant recurrent bleeding, will need CTA vs flex-sig
- s/p Barium enema 10/27: Incomplete study with marked irregular narrowing of the rectum correlating with the patient's known rectal malignancy. Contrast able to be passed from the rectum into the sigmoid colon although study was terminated due to
marked patient discomfort.
Multifactorial dyspnea/tachycardia
- lungs clear on CT imaging, not on O2, sinus tach on monitor
- likely driven by pain, anemia, sepsis, hypotension, anxiety
- recent CT-A also neg PE
- trop neg
- Echo: normal
- Cards signed off
Known rectal cancer with metastases
- on clinical trial meds: Bintrafusp clinical trial @ [facility]. [facility] contact - Dr. Cristino Romero ( ).
- follow up [facility] next week
Hyponatremia, acute
- likely partly driven by ADH response to hypotension
- improved with IVF
Hypothyroidism
- Likely combination of hypovolemia as noted above and under / un-treated hypothyroidism as patient discontinued her T4 supplementation.
- IVF support overnight as noted.
- Restart T4 supplementation at usual 25mcg dose.
- Follow for improvement in labs/lytes.
Acute thrombocytopenia
- likely consumptive from bleeding as well as malignancy, sepsis
- now resolved
- no evidence of DIC
Chronic Pain Syndrome
- Secondary to malignancy.
- Continue pain control with tramadol/Morphine
- patient refused Oxy and Dilaudid
DVT Prophylaxis
History of DVT/PE
- CTA 10/16 was negative for PE.
- Hold pharmacologic therapy given rectal bleeding.
- SCDs
Code Status:�Full
Anticipated Discharge: 24 - 48 hours
Subjective/Interval History
-
Date of Service: October 28, 2023
s/p Barium enema this AM with severe irregular narrowing, patient without BM for several days
Objective Data
-
Labs:
Laboratory Results
10/28/23
06:50
WBC 6.4
Hgb 10.0 L
Hct 30.5 L
Plt Count 154
PT 15.6 H
INR 1.23
Sodium 131 L
Potassium 3.9
Chloride 99
Carbon Dioxide 27
BUN 5 L
Creatinine 0.3 L
Glucose 83
Calcium 7.9 L
Total Bilirubin 2.1 H
AST 37 H
ALT 68 H
Alkaline Phosphatase 504 H
Vital Signs:
Vital Signs
Temp Pulse Resp BP Pulse Ox
98.1 F 83 18 123/76 96
10/28/23 07:50 10/28/23 07:50 10/28/23 07:50 10/28/23 07:50 10/28/23 09:33
I&O
10/27/23 10/28/23 10/29/23
06:59 06:59 06:59
Intake Total 2700 / 2700 220 / 220
Balance 2700 / 2700 220 / 220
Physical Exam
-
General: No Apparent Distress
HEENT: Normocephalic and Atraumatic
Respiratory: Negative Wheezes or Rales
Cardiac: Regular Rhythm and S1/S2
GI: Soft
Genito-urinary: No Costovertebral Tender
Musculoskeletal: No Edema
Neuro: AO x 3
Hematologic / Lymphatic: No Lymphadenopathy
Psych: Calm
Data Reviewed
-
Total Time Spent with Patient (in minutes): 44
Labs: Labs Reviewed by me
[2023-10-28] MEDS: MIRALAX PO (10:37)
[2023-10-28] MEDS: AUGMENTIN 875 MG/125 MG PO ×2 (10:37→20:59)
--- NOTE | 2023-10-28 11:19 | PTCARENOTE ---
Pt re-upgraded to IMU. Monitor reapplied. VSS. NPO at this time.
--- NOTE | 2023-10-28 12:13 | W.PN.ID1 ---
Addendum entered and electronically signed by Carmen Rai MD 10/31/23 08:19:
CDI: Suspect acute cholecystitis.
Original Note:
Date of Service
Date of Service: October 28, 2023
Today's Communication
Continue Augmentin 875 mg po bid through 10/30/23.
ID will sign off. Call prn.
Assessment / Plan
# Immunocompromised host
Stage IV recta CA (mets to liver, lungs,LN) on clinical trial with Bintrafusp
# Cholecystitis, biliary obstruction due to enlarged metastatic LN compression, elevated LFT's
# Fever - resolved
# Hypotension - resolved
# Rectal bleeding with blood loss anemia
-s/p ERCP, sphincterotomy, plastic stent to left hepatic duct 10/26/23
-LFT's trending down
- blood cx's neg to date
- s/p 3d Zosyn
-Continue Augmentin 875 mg po bid through 10/30/23.
ID will sign off.
# Additional Past Medical History:
Stage IV rectal ca with pulmonary, liver, LN mets currently on Bintrafusp clinical trial
hypothyroidism
h/o PE
endometriosis
pituitary adenoma
port placement
NOAM
Chief Complaint
-: Other (jaundice)
Subjective / Review of Systems
+ rectal bleeding. Came back from barium enema.
Vital Signs / Physical Exam
Vital Signs
Vital Signs
Temp Pulse Resp BP Pulse Ox
98.6 F 83 18 123/76 96
10/28/23 11:20 10/28/23 07:50 10/28/23 07:50 10/28/23 07:50 10/28/23 09:33
Physical Exam
Constitutional: Non-toxic
Cardiovascular: Regular Rate and S1/S2
Gastrointestinal: Soft, Non Tender and Non Distended
Objective Data
Lab Data
Lab Results
10/28/23 06:50
10/28/23 06:50
PT 15.6 Sec (11.4-14.6) H 10/28/23 06:50
INR 1.23 10/28/23 06:50
Estimated Creat Clear 117 ml/min 10/28/23 06:50
Lactic Acid 1.2 mmol/L (0.7-2.0) 10/24/23 21:30
Total Bilirubin 2.1 mg/dl (0.2-1.3) H 10/28/23 06:50
AST 37 U/L (14-36) H 10/28/23 06:50
ALT 68 U/L (0-35) H 10/28/23 06:50
Alkaline Phosphatase 504 U/L (38-126) H 10/28/23 06:50
Most recent labs reviewed.
Micro Results:
10/24/23 06:11 Blood Culture - Preliminary
Blood/Venous No Growth in 4 days- Final report to follow
10/24/23 05:59 Blood Culture - Preliminary
Blood/Venous No Growth in 4 days- Final report to follow
10/24/23 05:29 Urine Culture - Final
Urine NO GROWTH
10/24/23 08:35 Influenza Types A & B (JASON) - Final
Nasal Swab Negative for Influenza A & B, NAAT
Negative results must be combined with clinical observations
and patient history.
Nucleic Acid Amplification test (NAAT)performed on the
[employer] platform.
10/25/23 MRCP: Heterogeneous appearance of the liver, with multiple varying-sized lesions throughout the liver, with faint enhancement, and multiple areas of restricted diffusion throughout the liver and mel hepatis consistent with progression of
metastatic disease. Some of the lesions are consistent with treated lesions. These lesions were not clearly evident on the previous CT scan of the abdomen 2 months ago at which time there were subcentimeter hypodensities felt to represent treated
metastases. Significant increase in size of the Enlarged mel hepatis lymphadenopathy. Causes compression of the portal vein and the common bile duct. Mild distention of the common hepatic and intrahepatic ducts, increased. Subsequent gallbladder
wall thickening and pericholecystic edema, suggesting at least partial obstruction of the cystic duct
10/24/23 Abd US dopplers: At least 2 hypoechoic lesions within the liver, measuring up to 3.3 cm in diameter, most likely representing hepatic metastases.
10/23/23 Renal US: Sludge filled gallbladder. No sonographic findings to suggest acute cholecystitis. No evidence for intrahepatic biliary ductal dilation. Common bile duct measures up to 6 mm, which is top-normal. Fatty infiltration of the liver.
Questionable round lesion within the superior right lobe of the liver. As warranted, consideration for follow-up CT of the abdomen.
10/17/[address]: SEVERE BILATERAL PULMONARY METASTATIC DISEASE which has progressed since 08/12/2023.
--- NOTE | 2023-10-28 13:03 | PTCARENOTE ---
To GI lab via [employer]er.
[2023-10-28] MEDS: MORPHINE SULFATE 4 MG IV (14:08)
--- NOTE | 2023-10-28 14:31 | W.PN.UPDATE ---
Update Note
Progress Note Update
Patient underwent a flexible sigmoidoscopy by Dr. Jeronimo today. Found was a completely obstructing tumor in the distal rectum. Given this finding, we will take the patient to the operating room today for lap sigmoid colostomy. I spoke to her
daughter, Dia. Martínez will speak to her father regarding the findings. She is in agreement for her mom to have the colostomy. I will consult the wound RN for stoma marking. Preop antibiotics ordered. Discussed with nursing and hospitalist.
--- NOTE | 2023-10-28 15:12 | WOUNDNOTE ---
[facility] RN NOTE: Received consult for left sided ostomy siting for colostomy scheduled for later today. Met with patient and explained procedure and rationale for stoma marking. Patient given ostomy information booklet and all questions answered. Rectus
muscle identified and care was taken to avoid creases and folds. Patient was assessed in laying, sitting and standing positions. Patient made aware that surgeon will make final determination for ostomy placement. Patient also aware that abdominal
topography will likely change after surgery. TT ROGER Kebede to notify her that upper quadrant is favorable for placement. Will continue to follow with patient for ostomy teaching after surgery.
--- NOTE | 2023-10-28 16:08 | PTCARENOTE ---
Pt for OR. CHG wipes and betadine nasal swabs done. Linens and gown changed. Pre op checklist completed. To OR via bed.
--- NOTE | 2023-10-28 16:21 | CM ---
Patient with Hx rectal cancer with metastases, on clinical trial investigational med, with Port in place, with Dx sepsis. Flexible sigmoidoscopy today, found completely obstructing tumor in the distal rectum. Plan OR today for lap sigmoid
colostomy. PT & OT Evals; no needs.
Patient will need VN for ostomy nurse follow up at home.
CM continuing to follow for d/c needs.
Plan speak with patient about VN post op.
--- NOTE | 2023-10-28 17:01 | PN.CDI ---
CDI
- -
CDI:
Physician Documentation Request
Admit Date: 10/23/23 23:10
Dear Doctor
Please review the following and provide your response in the progress notes.
Clinical Indicators:
Pt admitted with Rectal bleeding widely metastatic rectal cancer mets to liver, lungs and LN.
Documented per ID progress notes 10/25-10/27, ' Cholecystitis, biliary obstruction due to enlarged metastatic LN compression, elevated LFT's..'
Pt will be treated with Continue Augmentin 875 mg po bid through 10/30/23 per ID
Clarify which of the following accurately represents the acuity of the ( Cholecystitis ).
Acute
Acute on Chronic
Chronic
Other
Use of terms such as suspected, likely, concern for, or probable (associated with a specific diagnosis that is being evaluated, monitored, or treated as if it exists) are acceptable and can be coded in the inpatient setting, when documented at the
time of discharge.
Thank you,
Jane Vera RN
CDI Specialist
[place] [facility]
Please use your independent medical judgment in providing your response.
--- NOTE | 2023-10-28 19:33 | W.IMMPOSTOP ---
Addendum entered and electronically signed by Delvin Alexandra MD 10/28/23 19:50:
Patient's and daughter updated in waiting area.
Original Note:
Surgical Immed Post Op Note
-
Primary Surgeon: Yamila Alexandra MD
Assisting Surgeon: Arielle Lake MD
Pre-op Diagnosis: partial large bowel obstruction due to rectal cancer
Post-op Diagnosis: same
Procedure Performed: 1) (laparoscopic converted to open) sigmoid loop colostomy 2) lysis of adhesions
Anesthesia Type: general plus local
Specimen / Cultures: none
Estimated Blood Loss: 50 cc
Complications: no immediate
Operative Findings: 1) distended colon 2) adhesions
Goldsmith in bladder.
Will send back to IMU.
[2023-10-29] VITALS (13 sets, daily range): BP systolic 108–123; BP diastolic 65–78; PULSE 81; BMI 29.4
[2023-10-29] MEDS: MORPHINE SULFATE 2 MG IV ×3 (01:19→09:14)
[2023-10-29] MEDS: MORPHINE SULFATE 15 MG PO (03:46)
[2023-10-29 04:02] LABS: % Basophils 1.1 % (0-2); % Eosinophils 0.2 % (0-6); % Immature Granulocytes 1.1 % (0-0.5); % Lymphocytes 5.9 % (20.5-51.1); % Monocytes 6.5 % (1.7-9.3); % Neutrophils 85.2 % (42.2-75.2); Absolute Basophils 0.1 10^3/uL (0-0.2); Absolute Immature Granulocytes 0.1 10^3/uL (0-0.05); Absolute Lymphocytes 0.4 10^3/uL (1.2-3.4); Absolute Monocytes 0.4 10^3/uL (0.1-0.6); Absolute Neutrophils 5.7 10^3/uL (1.4-6.5); Hematocrit 29.6 % (37.0-47.0); Hemoglobin 9.7 g/dL (12.0-16.0); Mean Corp Hgb Conc. 32.8 g/dL (33.0-37.0); Mean Corpuscular Volume 85.3 fL (81.0-99.0); Mean Platelet Volume 10.3 fL (7.4-10.4); Nucleated Red Blood Cells % 0 %; Platelet Count 140 10^3/uL (130-400); Red Blood Cell Count 3.47 10^6/uL (4.20-5.40); Red Cell Dist. Width 14.7 % (11.5-14.5); White Blood Cell Count 6.6 10^3/uL (4.8-10.8)
[2023-10-29 04:29] LABS: ALT (SGPT) 54 U/L (0-35); AST (SGOT) 37 U/L (14-36); Albumin 2.4 g/dl (3.5-5.0); Alkaline Phosphatase 428 U/L (38-126); Blood Urea Nitrogen 4 mg/dl (7-17); Calcium 7.6 mg/dl (8.4-10.2); Carbon Dioxide 24 mmol/L (22-30); Chloride 104 mmol/L (98-107); Estimated Creatinine Clearance 119 ml/min; Glucose 117 mg/dl (70-99); Magnesium 2.4 mg/dl (1.6-2.3); Potassium 4.5 mmol/L (3.5-5.1); Sodium 132 mmol/L (135-145); Total Protein 5.3 g/dl (6.3-8.2); eGFR > 60.00
--- NOTE | 2023-10-29 04:40 | PTCARENOTE ---
Received patient from the OR overnight. Family at beside. New left upper abdomen colostomy. Patient drowsy overnight with episodes of severe pain. PRN morphine given as ordered. Large midline incision aquacell with minimal shadowing.
[2023-10-29] MEDS: SYNTHROID 25 MCG PO (05:10)
[2023-10-29] MEDS: ULTRAM 100 MG PO ×3 (06:36→18:38)
[2023-10-29] MEDS: AUGMENTIN 875 MG/125 MG 1 TABLET PO ×2 (09:05→20:16)
[2023-10-29] MEDS: PROTONIX IV 40 MG IV (09:06)
[2023-10-29] MEDS: NSS (PRESERVATIVE FREE) 10 ML IV (09:06)
[2023-10-29] MEDS: ZOFRAN 4 MG IV (09:11)
[2023-10-29] MEDS: NORMOSOL-R 1000 IV ×2 (09:26→18:34)
--- NOTE | 2023-10-29 10:53 | W.PN.ONC ---
Today's Communication / Plan
-
Pain mgmt, diet, post-op care per primary team, CRS
Monitor CBC, LFTs.
OOB, PT
Further options for cancer treatment TBD, unlikely to return to [facility] on trial
Impression
Impression
Metastatic rectal cancer, hx polypectomy and XRT on Bintrafusp clinical trial x2 infusions ([facility] in [place], Dr. Romero)
Obstructive jaundice, s/p ERCP w/ stent, 10/25
RUQ abdominal/rectal pain and bleeding - obstructing mass, s/p sigmoid loop colostomy, 10/28/23
Plan
Plan
LFTs continue to improve s/p ERCP/stent on 10/25
Now s/p sigmoid loop colostomy 10/27 for obstructing rectal tumor
Pain mgmt, diet, post-op care per primary team, CRS
Monitor CBC, LFTs.
OOB, PT
Further options for cancer treatment TBD, unlikely to return to [facility] on trial
Subjective/Objective
Subjective/Objective
c/o abd pain following surgery yesterday evening
hopes to get OOB at some point today
tolerating sips of water
Vital Signs:
Vital Signs
Temp Pulse Resp BP Pulse Ox
98.4 F 79 11 115/67 97
10/29/23 07:35 10/29/23 06:00 10/29/23 06:00 10/29/23 06:00 10/29/23 06:00
Lab Results:
Laboratory Data
WBC 6.6 10^3/uL (4.8-10.8) 10/29/23 03:51
Hgb 9.7 g/dL (12.0-16.0) L 10/29/23 03:51
Plt Count 140 10^3/uL (130-400) 10/29/23 03:51
PT 15.6 Sec (11.4-14.6) H 10/28/23 06:50
INR 1.23 10/28/23 06:50
eGFR > 60.00 10/29/23 03:51
--- NOTE | 2023-10-29 11:02 | PTCARENOTE ---
Assumed care of pt from night RN, pt AAOx3, makes needs known. Had c/o 03/10 abdominal pain, prn IV morphine administered as ordered. Pt reports she is 'ok' as long as she doesn't move too much. IVF renewed by Dr. Saravia. prn IV morphine increased to
4mg q4h prn. Pt willing to get washed up around lunch time when she can have Tramdol in addition to the morphine. Colostomy with small amount of serosanguineous drainage, stoma red and budded, anchor in place. Abdomen tender to palpation. Hypoactive
bowel sounds noted in 3/4 quads. Will monitor through shift.
[2023-10-29] MEDS: MORPHINE SULFATE 4 MG IV ×3 (13:01→21:03)
--- NOTE | 2023-10-29 13:46 | W.PN.HOSP.TC ---
Today's Communication/Plan
-
continue IMU level of care
pain control
NPO while we await ROBF and ostomy activity
continue Abx
PT/OT
Assessment / Plan
Assessment / Plan
Assessment:
Sepsis POA with resultant development of shock requiring pressors
Underlying immunocompromised host (cancer, trial meds)
- resolved; off pressors and IVF
Abnormal LFTs
Direct Hyperbilirubinemia
- Unclear etiology.�Abrupt increase compared to labs done 10/16.
- US Abd and Doppler unremarkable
- concern of drug-induced hepatitis from [facility] trial meds - initially steroids started by onc but after discussion with [facility], put on hold
- MRI: Heterogeneous appearance of the liver, with multiple varying-sized lesions throughout the liver, with faint enhancement, and multiple areas of restricted diffusion throughout the liver and mel hepatis consistent with progression of
metastatic disease. Some of the lesions are consistent with treated lesions. These lesions were not clearly evident on the previous CT scan of the abdomen 2 months ago at which time there were subcentimeter hypodensities felt to represent treated
metastases. Significant increase in size of the Enlarged mel hepatis lymphadenopathy. Causes compression of the portal vein and the common bile duct. Mild distention of the common hepatic and intrahepatic ducts, increased. Subsequent gallbladder
wall thickening and pericholecystic edema, suggesting at least partial obstruction of the cystic duct.
- s/p ERCP 10/25 with plastic stent placement into right hepatic duct
- complete Abx: Augmentin 875 mg po bid through 10/30/23 as per ID
- trend LFTs which show improvement; repeat outpatient next week (script in chart)
- GI signed off - f/u in office in 8 weeks for stent management.
Normocytic Anemia
Anemia of Chronic Disease
Acute Blood Loss Anemia from rectal bleeding; Known rectal cancer with metastases and history of polypectomy, XRT
- Hb 6.4 s/p 2 units, now 9.7
- GI/CRS following
- if significant recurrent bleeding, will need CTA vs flex-sig
- s/p Barium enema 10/27: Incomplete study with marked irregular narrowing of the rectum correlating with the patient's known rectal malignancy. Contrast able to be passed from the rectum into the sigmoid colon although study was terminated due to
marked patient discomfort.
- s/p open sigmoid loop colostomy and lysis of adhesions
- NPO pending ROBF and stoma activity
- continue pain control
Multifactorial dyspnea/tachycardia
- lungs clear on CT imaging, not on O2, sinus tach on monitor
- likely driven by pain, anemia, sepsis, hypotension, anxiety
- recent CT-A also neg PE
- trop neg
- Echo: normal
- Cards signed off
Known rectal cancer with metastases
- on clinical trial meds: Merissa clinical trial @ [facility]. [facility] contact - Dr. Cristino Romero ( ).
- follow up [facility] next week
Hyponatremia, acute
- likely partly driven by ADH response to hypotension
- improved with IVF
Hypothyroidism
- Likely combination of hypovolemia as noted above and under / un-treated hypothyroidism as patient discontinued her T4 supplementation.
- IVF support overnight as noted.
- Restart T4 supplementation at usual 25mcg dose.
- Follow for improvement in labs/lytes.
Acute thrombocytopenia
- likely consumptive from bleeding as well as malignancy, sepsis
- now resolved
- no evidence of DIC
Chronic Pain Syndrome
- Secondary to malignancy.
- Continue pain control with tramadol/Morphine
- patient refused Oxy and Dilaudid
DVT Prophylaxis
History of DVT/PE
- CTA 10/16 was negative for PE.
- Hold pharmacologic therapy given rectal bleeding.
- SCDs
Code Status:�Full
Anticipated Discharge: > 48 hours
Subjective/Interval History
-
Date of Service: October 29, 2023
reports pain, morphine was increased this morning
no stoma function yet
Objective Data
-
Labs:
Laboratory Results
10/29/23
03:51
WBC 6.6
Hgb 9.7 L
Hct 29.6 L
Plt Count 140
Sodium 132 L
Potassium 4.5
Chloride 104
Carbon Dioxide 24
BUN 4 L
Creatinine 0.3 L
Glucose 117 H
Calcium 7.6 L
Total Bilirubin 2.0 H
AST 37 H
ALT 54 H
Alkaline Phosphatase 428 H
Vital Signs:
Vital Signs
Temp Pulse Resp BP Pulse Ox
97.4 F 79 11 122/70 97
10/29/23 11:32 10/29/23 10:00 10/29/23 10:00 10/29/23 10:00 10/29/23 10:00
I&O
10/28/23 10/29/23 10/30/23
06:59 06:59 06:59
Intake Total 220 / 220 1150 / 1150
Output Total 1400 / 1400
Balance 220 / 220 -250 / -250
Physical Exam
-
General: No Apparent Distress
HEENT: Normocephalic and Atraumatic
Respiratory: Negative Wheezes or Rales
Cardiac: Regular Rhythm and S1/S2
GI: Soft and Ostomy
Genito-urinary: No Costovertebral Tender
Neuro: AO x 3
Psych: Calm
Data Reviewed
-
Total Time Spent with Patient (in minutes): 42
Labs: Labs Reviewed by me
--- NOTE | 2023-10-29 13:55 | W.PN.CRS1 ---
Addendum entered and electronically signed by Lam Saravia MD 10/29/23 14:38:
I saw and examined the patient.
The Demo Coordinator's note was reviewed and I agree with the note.
Comment: Pain control issues. No n/v, no activity per stoma. Stoma PPV on exam with bowel sweat in the bag. Abd exam otherwise approp. Cont NPO/IVF for now. Start lovenox. Cont storey until pain control /mobility improved.
Original Note:
Today's Communication / Plan
-
Continue NPO
OOB/Increase activity
Assessment/Plan
-
53 yo female with stage iv metastatic rectal CA on XRT on Bintrafusp clinical trial x2 infusions presenting with obstructive jaundice, s/p ERCP w/ stent, 10/25 as well as RUQ abdominal/rectal pain and bleeding - obstructing mass.
POD #1 lap converted to open sigmoid loop colostomy with YUDELKA
AFVSS
LFT's trending down, INR normalized
H/H stable, no leukocytosis
Awaiting return of bowel function
--Continue NPO until ROBF, ice chips/sips for comfort
--Continue storey
--OOB/Increase activity. PT consulted
--IVF while NPO
--Increased prn dosage of morphine from 2mg to 4mg. Continue Ofirmev. PO analgesics ordered but will likely not be absorbed well
--Start lovenox 40mg sq for vte ppx, scd's while in bed
Subjective Data
Procedure
10/28/23 (Laparoscopic converted to open) sigmoid loop colostomy creation, YUDELKA
Subjective Data
Date of Service: October 29, 2023
Patient seen and examined at bedside. Notes pain has been an issue. Not moving much. Denies n/v. No flatus.
Objective Data
-
Vital Signs
Temp Pulse Resp BP Pulse Ox
97.4 F 79 11 122/70 97
10/29/23 11:32 10/29/23 10:00 10/29/23 10:00 10/29/23 10:00 10/29/23 10:00
Intake & Output
10/28/23 10/29/23 10/30/23
06:59 06:59 06:59
Intake Total 220 / 220 1150 / 1150
Output Total 1400 / 1400
Balance 220 / 220 -250 / -250
Intake:
Oral fluids 220 / 220
IV fluids (Total) 1150 / 1150
normosol 150 / 150
Output:
Urine, Storey 1400 / 1400
Other:
Number of approximated MODERATE 3 1
amounts of urine
Number of approximated LARGE 1
amounts of urine
Lab Results
10/29/23 03:51
10/29/23 03:51
Physical Exam
-
General: No Acute Distress
HEENT: Grossly Normal
Abdomen: Soft, Distended (minimally), Tender (generalized) and Other (stoma pink/viable. minimal bowel sweat in appliance)
Skin: Warm
Wound: Dressing in Place and Dressing Dry
[2023-10-29] MEDS: LOVENOX 40 MG SC (17:04)
[2023-10-29] MEDS: OFIRMEV 100 IV (20:17)
[2023-10-30] VITALS (12 sets, daily range): BP systolic 97–125; BP diastolic 60–75; BMI 29.0
[2023-10-30] MEDS: OFIRMEV 100 IV ×3 (01:52→14:52)
[2023-10-30] MEDS: MORPHINE SULFATE 4 MG IV ×5 (01:55→20:54)
[2023-10-30] MEDS: ULTRAM 100 MG PO ×4 (03:03→22:34)
[2023-10-30 04:05] LABS: Hematocrit 25.9 % (37.0-47.0); Hemoglobin 8.6 g/dL (12.0-16.0); Mean Corp Hgb Conc. 33.2 g/dL (33.0-37.0); Mean Corpuscular Volume 87.2 fL (81.0-99.0); Mean Platelet Volume 10.4 fL (7.4-10.4); Platelet Count 142 10^3/uL (130-400); Red Blood Cell Count 2.97 10^6/uL (4.20-5.40); White Blood Cell Count 4.9 10^3/uL (4.8-10.8)
[2023-10-30 04:29] LABS: ALT (SGPT) 39 U/L (0-35); AST (SGOT) 38 U/L (14-36); Albumin 2.2 g/dl (3.5-5.0); Alkaline Phosphatase 355 U/L (38-126); Blood Urea Nitrogen 8 mg/dl (7-17); Calcium 7.7 mg/dl (8.4-10.2); Carbon Dioxide 26 mmol/L (22-30); Chloride 100 mmol/L (98-107); Estimated Creatinine Clearance 119 ml/min; Glucose 62 mg/dl (70-99); Potassium 4.2 mmol/L (3.5-5.1); Sodium 133 mmol/L (135-145); Total Bilirubin 1.6 mg/dl (0.2-1.3); Total Protein 4.9 g/dl (6.3-8.2); eGFR > 60.00
[2023-10-30] MEDS: NORMOSOL-R 1000 IV (06:08)
[2023-10-30] MEDS: SYNTHROID 25 MCG PO (06:15)
[2023-10-30] MEDS: NSS (PRESERVATIVE FREE) 10 ML IV (09:32)
[2023-10-30] MEDS: AUGMENTIN 875 MG/125 MG 1 TABLET PO ×2 (09:32→20:53)
[2023-10-30] MEDS: PROTONIX IV 40 MG IV (09:32)
[2023-10-30] MEDS: D5LR 1000 IV ×2 (09:35→18:27)
--- NOTE | 2023-10-30 12:55 | W.PN.CRS1 ---
Addendum entered and electronically signed by Lam Saravia MD 10/30/23 13:37:
I saw and examined the patient.
The Fireworks Display Specialist's note was reviewed and I agree with the note.
Comment: Pain controlled, though has not yet ambulated 2/2 pain. No stoma output yet, denies n/v. Some Hb drop, will hold lovenox as a precaution. Cont NPO/IVF, await ROBF
Original Note:
Today's Communication / Plan
-
NPO
OOB/Increase activity
Assessment/Plan
-
53 yo female with stage iv metastatic rectal CA on XRT on Bintrafusp clinical trial x2 infusions presenting with obstructive jaundice, s/p ERCP w/ stent, 10/25 as well as RUQ abdominal/rectal pain and bleeding - obstructing mass.
POD #2 lap converted to open sigmoid loop colostomy with YUDELKA
AFVSS
LFT's trending down
H/H with drop today. Acute on chronic anemia secondary to chronic disease and hemodilution. No active bleeding noted.
Awaiting return of bowel function
--Continue NPO until ROBF, ice chips/sips for comfort
--Continue storey
--OOB/Increase activity. PT consulted
--IVF while NPO
--Stoma nurse consulted to follow
--Continue Ofirmev. PRN IV morphine PO analgesics being given additionally but will likely not be absorbed well
--Hold lovenox tonight and recheck h/h in am
--Continue SCD's for VTE ppx
Subjective Data
Procedure
10/28/23 (Laparoscopic converted to open) sigmoid loop colostomy creation, YUDELKA
Subjective Data
Date of Service: October 30, 2023
Patient seen and examined at bedside with Dr. Saravia. Denies n/v. Has not been OOB secondary to pain. Notes that it is better than yesterday, but limits movement.
Objective Data
-
Vital Signs
Temp Pulse Resp BP Pulse Ox
97.4 F 76 11 116/72 90
10/30/23 07:35 10/30/23 12:00 10/30/23 12:00 10/30/23 12:00 10/30/23 12:00
Intake & Output
10/29/23 10/30/23 10/31/23
06:59 06:59 06:59
Intake Total 1150 / 1150 1480 / 1480
Output Total 1400 / 1400 2700 / 2700 500 / 500
Balance -250 / -250 -1220 / -1220 -500 / -500
Intake:
Oral fluids 480 / 480
IV fluids (Total) 1150 / 1150 1000 / 1000
normosol 150 / 150
Output:
Urine, Storey 1400 / 1400 2700 / 2700 500 / 500
Other:
Number of approximated MODERATE 1
amounts of urine
Lab Results
10/30/23 03:10
10/30/23 03:07
Physical Exam
-
General: No Acute Distress
HEENT: Grossly Normal
Abdomen: Soft, Distended (minimally), Tender (generalized) and Other (stoma pink/viable. minimal bowel sweat in appliance)
Skin: Warm
Wound: Dressing in Place and Dressing Dry
--- NOTE | 2023-10-30 14:40 | W.PN.HOSP.TC ---
Today's Communication/Plan
-
await ROBF
continue pain control
complete abx course
Assessment / Plan
Assessment / Plan
Assessment:
Sepsis POA with resultant development of shock requiring pressors
Underlying immunocompromised host (cancer, trial meds)
- resolved; off pressors and IVF
Abnormal LFTs
Direct Hyperbilirubinemia
- Unclear etiology.�Abrupt increase compared to labs done 10/16.
- US Abd and Doppler unremarkable
- concern of drug-induced hepatitis from [facility] trial meds - initially steroids started by onc but after discussion with [facility], put on hold
- MRI: Heterogeneous appearance of the liver, with multiple varying-sized lesions throughout the liver, with faint enhancement, and multiple areas of restricted diffusion throughout the liver and mel hepatis consistent with progression of
metastatic disease. Some of the lesions are consistent with treated lesions. These lesions were not clearly evident on the previous CT scan of the abdomen 2 months ago at which time there were subcentimeter hypodensities felt to represent treated
metastases. Significant increase in size of the Enlarged mel hepatis lymphadenopathy. Causes compression of the portal vein and the common bile duct. Mild distention of the common hepatic and intrahepatic ducts, increased. Subsequent gallbladder
wall thickening and pericholecystic edema, suggesting at least partial obstruction of the cystic duct.
- s/p ERCP 10/25 with plastic stent placement into right hepatic duct
- completed Augmentin course
- trend LFTs which show improvement; repeat outpatient next week (script in chart)
- GI signed off - f/u in office in 8 weeks for stent management.
Normocytic Anemia
Anemia of Chronic Disease
Acute Blood Loss Anemia from rectal bleeding; Known rectal cancer with metastases and history of polypectomy, XRT
- Hb 6.4 s/p 2 units, now 8.6
- GI/CRS following
- s/p Barium enema 10/27: Incomplete study with marked irregular narrowing of the rectum correlating with the patient's known rectal malignancy. Contrast able to be passed from the rectum into the sigmoid colon although study was terminated due to
marked patient discomfort.
- s/p open sigmoid loop colostomy and lysis of adhesions
- NPO pending ROBF and stoma activity
- continue pain control; once cleared for diet, transition to orals
Multifactorial dyspnea/tachycardia
- lungs clear on CT imaging, not on O2, sinus tach on monitor
- likely driven by pain, anemia, sepsis, hypotension, anxiety
- recent CT-A also neg PE
- trop neg
- Echo: normal
- Cards signed off
Known rectal cancer with metastases
- [facility]. [facility] contact - Dr. Cristino Romero ( ).
- follow up [facility] next week
Hyponatremia, acute
- likely partly driven by ADH response to hypotension
- improved with IVF
Hypothyroidism
- Likely combination of hypovolemia as noted above and under / un-treated hypothyroidism as patient discontinued her T4 supplementation.
- IVF support overnight as noted.
- Restart T4 supplementation at usual 25mcg dose.
- Follow for improvement in labs/lytes.
Acute thrombocytopenia
- likely consumptive from bleeding as well as malignancy, sepsis
- now resolved
- no evidence of DIC
Chronic Pain Syndrome
- Secondary to malignancy.
- Continue pain control with tramadol/Morphine
- patient refused Oxy and Dilaudid due to side effects
DVT Prophylaxis
History of DVT/PE
- CTA 10/16 was negative for PE.
- Hold pharmacologic therapy given rectal bleeding.
- SCDs
Code Status:�Full
Anticipated Discharge: > 48 hours
Subjective/Interval History
-
Date of Service: October 30, 2023
pain controlled with around the clock meds
no activity in stoma yet
Objective Data
-
Labs:
Laboratory Results
03/31/24 03/31/24
03:07 03:10
WBC 4.9
Hgb 8.6 L
Hct 25.9 L
Plt Count 142
Sodium 133 L
Potassium 4.2
Chloride 100
Carbon Dioxide 26
BUN 8
Creatinine 0.4 L
Glucose 62 L
Calcium 7.7 L
Total Bilirubin 1.6 H
AST 38 H
ALT 39 H
Alkaline Phosphatase 355 H
Vital Signs:
Vital Signs
Temp Pulse Resp BP Pulse Ox
97.8 F 76 11 116/72 90
10/30/23 11:16 10/30/23 12:00 10/30/23 12:00 10/30/23 12:00 10/30/23 12:00
I&O
10/29/23 10/30/23 10/31/23
06:59 06:59 06:59
Intake Total 1150 / 1150 1480 / 1480
Output Total 1400 / 1400 2700 / 2700 500 / 500
Balance -250 / -250 -1220 / -1220 -500 / -500
Physical Exam
-
General: No Apparent Distress
HEENT: Normocephalic and Atraumatic
Respiratory: Negative Wheezes or Rales
Cardiac: Regular Rhythm and S1/S2
GI: Ostomy
Genito-urinary: No Costovertebral Tender
Musculoskeletal: No Edema
Neuro: AO x 3
Hematologic / Lymphatic: No Lymphadenopathy
Psych: Calm
Data Reviewed
-
Total Time Spent with Patient (in minutes): 42
Labs: Labs Reviewed by me
[2023-10-30] MEDS: LOVENOX SC (17:53)
[2023-10-30] MEDS: ZOFRAN 4 MG IV (21:02)
[2023-10-31] VITALS (12 sets, daily range): BP systolic 119–138; BP diastolic 71–80; BMI 28.6
[2023-10-31] MEDS: MORPHINE SULFATE 4 MG IV ×5 (02:07→23:41)
[2023-10-31] MEDS: D5LR 1000 IV ×2 (03:01→13:13)
[2023-10-31] MEDS: ULTRAM 100 MG PO ×3 (05:21→19:44)
[2023-10-31] MEDS: SYNTHROID 25 MCG PO (05:24)
[2023-10-31 05:30] LABS: Hematocrit 27.4 % (37.0-47.0); Hemoglobin 9.1 g/dL (12.0-16.0); Mean Corp Hgb Conc. 33.2 g/dL (33.0-37.0); Mean Corpuscular Hgb 28.5 pg (27.0-31.0); Mean Corpuscular Volume 85.9 fL (81.0-99.0); Mean Platelet Volume 9.8 fL (7.4-10.4); Platelet Count 136 10^3/uL (130-400); Red Blood Cell Count 3.19 10^6/uL (4.20-5.40); Red Cell Dist. Width 14.8 % (11.5-14.5); White Blood Cell Count 6.5 10^3/uL (4.8-10.8)
[2023-10-31 05:41] LABS: INR 1.43; PT 17.3 Sec (11.4-14.6)
[2023-10-31 05:54] LABS: ALT (SGPT) 32 U/L (0-35); AST (SGOT) 41 U/L (14-36); Albumin 2.3 g/dl (3.5-5.0); Alkaline Phosphatase 330 U/L (38-126); Blood Urea Nitrogen 2 mg/dl (7-17); Calcium 7.6 mg/dl (8.4-10.2); Carbon Dioxide 29 mmol/L (22-30); Chloride 98 mmol/L (98-107); Estimated Creatinine Clearance 117 ml/min; Glucose 124 mg/dl (70-99); Potassium 3.7 mmol/L (3.5-5.1); Sodium 128 mmol/L (135-145); Total Bilirubin 1.4 mg/dl (0.2-1.3); Total Protein 5.1 g/dl (6.3-8.2); eGFR > 60.00
[2023-10-31] MEDS: PROTONIX IV 40 MG IV (08:02)
[2023-10-31] MEDS: NSS (PRESERVATIVE FREE) 10 ML IV (08:02)
[2023-10-31] MEDS: ZOFRAN 4 MG IV ×3 (08:22→23:10)
--- NOTE | 2023-10-31 09:38 | PTCARENOTE ---
Patient complaining of abdominal and back pain rating 10/10. Medicated patient with IV morphine sulfate as ordered. The morphine made patient nauseous, no vomiting. Then medicated with zofran for nausea. Patient is currently sleeping. Will
continue to monitor.
--- NOTE | 2023-10-31 12:37 | W.PN.ONC2 ---
Today's Communication / Plan
-
Pain controlled.
Outpt f/u with Dr. Singh to discuss next steps in care.
Impression
Impression
Metastatic rectal cancer, hx polypectomy and XRT on Bintrafusp clinical trial x2 infusions ([facility] in [place], Dr. Romero)
Obstructive jaundice, s/p ERCP w/ stent, 10/25
RUQ abdominal/rectal pain and bleeding - obstructing mass, s/p sigmoid loop colostomy, 10/28/23
Plan
Plan
LFTs continue to improve s/p ERCP/stent on 10/25
Now s/p sigmoid loop colostomy 10/27 for obstructing rectal tumor
Pain mgmt, diet, post-op care per primary team, CRS
Monitor CBC, LFTs.
OOB, PT
Further options for cancer treatment TBD, pt of Dr. Singh, unlikely to return to [facility] on trial
Subjective/Objective
Chief Complaint
Heme/Onc follow up of metastatic colorectal cancer
Subjective
Reports a lot of pain but well controlled.
Vital Signs:
Vital Signs
Temp Pulse Resp BP Pulse Ox
97.6 F 92 16 132/78 98
10/31/23 11:45 10/31/23 10:00 10/31/23 10:00 10/31/23 10:00 10/31/23 10:00
Lab Results:
Laboratory Data
WBC 6.5 10^3/uL (4.8-10.8) 10/31/23 05:16
Hgb 9.1 g/dL (12.0-16.0) L 10/31/23 05:16
Plt Count 136 10^3/uL (130-400) 10/31/23 05:16
PT 17.3 Sec (11.4-14.6) H 10/31/23 05:16
INR 1.43 10/31/23 05:16
eGFR > 60.00 10/31/23 05:16
Physical Exam
HEENT: Moist Mucous Membranes; No Jaundice
Cardiology: Normal Sinus Rhythm, S1 and S2
Pulmonary: Clear; No Wheezes
GI: Soft; No Distended
Extremities: No C/C/E
Neuro: Non Focal
Review of Systems
Review of Systems
Constitutional: Reports Fatigue; Denies Fever
Head: Denies Sore Throat or Hearing Loss
Respiratory: Denies Cough
Cardiovascular: Denies Chest Pain or Palpitations
Gastrointestinal: Denies Nausea/Vomiting or Diarrhea
Genitourinary: Denies Hematuria
Skin: Denies Rash or Pruritis
Neurological: Denies Headache or Numbness
Psychiatric: Denies Depression or Insomnia
Hem/Lymphatic: Denies Easy Bruising or Swollen Glands
--- NOTE | 2023-10-31 13:28 | W.PN.CRS1 ---
Today's Communication / Plan
-
Possible clears later today
Lovenox
Assessment/Plan
-
POD #3 lap converted to open sigmoid loop colostomy with YUDELKA
1. WBC and hemoglobin normal. Vitals normal.
2. Pain control.
3. Out of bed with PT.
4. Continue IV fluids while NPO.
5. Wound RN for stoma teaching.
6. Okay to restart Lovenox.
7. She can try clears later today if her nausea resolves.
Subjective Data
Procedure
10/28/23 (Laparoscopic converted to open) sigmoid loop colostomy creation, YUDELKA
Subjective Data
Date of Service: October 31, 2023
Patient states she is having flatus. She has pain in the middle of her abdomen. Her stoma is pink. She is nauseous currently after the morphine and feels like she is going to vomit as we are seeing her.
Objective Data
-
Vital Signs
Temp Pulse Resp BP Pulse Ox
97.6 F 92 16 132/78 98
10/31/23 11:45 10/31/23 10:00 10/31/23 10:00 10/31/23 10:00 10/31/23 10:00
Intake & Output
10/30/23 10/31/23 11/01/23
06:59 06:59 06:59
Intake Total 1480 / 1480 1300 / 1300
Output Total 2700 / 2700 4150 / 4150 215 / 2149
Balance -1220 / -1220 -2850 / -2850 -2149 / -2149
Intake:
Oral fluids 480 / 480 100 / 100
IV fluids (Total) 1000 / 1000 1200 / 1200
Output:
Urine, Goldsmith 2700 / 2700 4150 / 4150 215 / 2149
Lab Results
10/31/23 05:16
10/31/23 05:16
Physical Exam
-
General: No Acute Distress and AOx3
Abdomen: Soft, Non Distended, Tender (around incision) and Other (Loop colostomy warm and pink, no output)
Incision: Clear, Dry, Intact
--- NOTE | 2023-10-31 14:54 | WOUNDNOTE ---
[facility] RN note: Patient s/p loop colostomy 10/28/23. History of rectal cancer. Stoma pink with stoma bridge in place. Appliance intact. Colostomy teaching folder in room. Ostomy supplies given (Garrett wafer # [id number], Chantal seals and Garrett pouch
#[id number]). Patient stated she didn't need family to be present for ostomy teaching because they are busy during the day. 1 daughter will be visiting tomorrow at 3:45pm tomorrow. Instructed patient and daughter how to open and close pouch, how to cut
wafer and snap on pouch.
--- NOTE | 2023-10-31 14:58 | WOUNDNOTE ---
Patient gave this keno writer / runner verbal permission to order a [place] ostomy secure starter kit.
--- NOTE | 2023-10-31 16:31 | W.PN.UPDATE ---
Update Note
Progress Note Update
care per onc/CRS
gi will sign off call with ?S
--- NOTE | 2023-10-31 16:45 | WOUNDNOTE ---
WOC RN note: t/yuli Tucker, spoke with Latosha and ordered patient a Garrett ostomy secure starter kit.
[2023-10-31] MEDS: FLUSH (NSS) 2 FLUSH IV (17:16)
--- NOTE | 2023-10-31 17:38 | CM ---
Patient with Hx rectal cancer with metastases, on clinical trial investigational med, with Port in place, with Dx sepsis, s/p ERCP/stent, s/p sigmoid loop colostomy. Room air. Clear liquids. PT recommendation TBD, declined PT today. OT Eval; no
needs.
Spoke with patient and daughter Aga; patient chose [facility] for nurse for ongoing ostomy care/training at home. Daughter plans to meet with the the [facility] nurse here tomorrow afternoon for colostomy teaching.
Referral to DEVAUGHN Hussein.
Plan home with [facility].
--- NOTE | 2023-10-31 17:58 | W.PN.HOSP.TC ---
Today's Communication/Plan
-
cautiously advance diet
Assessment / Plan
Assessment / Plan
Assessment:
Metastatic Rectal Cancer, originally presented with rectal mass on ROSALBA 04/07/22 after she presented for change in bowel habits, hx polypectomy and XRT on Bintrafusp clinical trial
Obstructive jaundice better post ERCP w/ stent, 10/25
RUQ abdominal/rectal pain and bleeding - obstructing mass, s/p sigmoid loop colostomy, 10/28/23
cleared by CRS to resume Lovenox
Sepsis POA with resultant development of shock requiring pressors resolved
Underlying immunocompromised host (cancer, trial meds)
- resolved; off pressors and IVF
Abnormal LFTs
Direct Hyperbilirubinemia
7.0-->5.3-->2.6-->1.6-->1.4
AST 177-->71-->41
- Unclear etiology.�Abrupt increase compared to labs done 10/16, concern related to metastatic disease to liver, improved post stenting vs drug related
- US Abd and Doppler unremarkable
- concern of drug-induced hepatitis from [facility] trial meds - initially steroids started by onc but after discussion with [facility], put on hold
- MRI: Heterogeneous appearance of the liver, with multiple varying-sized lesions throughout the liver, with faint enhancement, and multiple areas of restricted diffusion throughout the liver and mel hepatis consistent with progression of
metastatic disease. Some of the lesions are consistent with treated lesions. These lesions were not clearly evident on the previous CT scan of the abdomen 2 months ago at which time there were subcentimeter hypodensities felt to represent treated
metastases. Significant increase in size of the Enlarged mel hepatis lymphadenopathy. Causes compression of the portal vein and the common bile duct. Mild distention of the common hepatic and intrahepatic ducts, increased. Subsequent gallbladder
wall thickening and pericholecystic edema, suggesting at least partial obstruction of the cystic duct.
- s/p ERCP 10/25 with plastic stent placement into right hepatic duct
- completed Augmentin course
- trend LFTs which show improvement; repeat outpatient next week (script in chart)
- GI signed off - f/u in office in 8 weeks for stent management.
Normocytic Anemia
Anemia of Chronic Disease
Acute Blood Loss Anemia from rectal bleeding; Known rectal cancer with metastases and history of polypectomy, XRT
- Hb 6.4 s/p 2 units, now 8.6-->9.1
- GI signed off/CRS following
- s/p Barium enema 10/27: Incomplete study with marked irregular narrowing of the rectum correlating with the patient's known rectal malignancy. Contrast able to be passed from the rectum into the sigmoid colon although study was terminated due to
marked patient discomfort.
- s/p open sigmoid loop colostomy and lysis of adhesions
- NPO advanced to clear liquids
- continue pain control; once cleared for diet, transition to orals
Multifactorial dyspnea/tachycardia
- lungs clear on CT imaging, not on O2, sinus tach on monitor
- likely driven by pain, anemia, sepsis, hypotension, anxiety
- recent CT-A also neg PE
- trop neg
- Echo: normal
- Cards signed off
Known rectal cancer with metastases
- on clinical trial meds: Merissa clinical trial @ [facility]. [facility] contact - Dr. Cristino Romero ( ).
- follow up [facility] next week
Hyponatremia, acute
- likely partly driven by ADH response to hypotension
- Na 128
Hypothyroidism
- Likely combination of hypovolemia as noted above and under / un-treated hypothyroidism as patient discontinued her T4 supplementation.
- IVF support overnight as noted.
- Restart T4 supplementation at usual 25mcg dose.
- Follow for improvement in labs/lytes.
Acute thrombocytopenia
- likely consumptive from bleeding as well as malignancy, sepsis
- now resolved
- no evidence of DIC
Chronic Pain Syndrome
- Secondary to malignancy.
- Continue pain control with tramadol/Morphine
- patient refused Oxy and Dilaudid due to side effects
DVT Prophylaxis
History of DVT/PE
- CTA 10/16 was negative for PE.
- Hold pharmacologic therapy given rectal bleeding.
- SCDs
Code Status:�Full
Anticipated Discharge: > 48 hours
Subjective/Interval History
-
Date of Service: October 31, 2023
Sleepy post narcotic analgesic, still with post op pain
Objective Data
-
Vital Signs:
Vital Signs
Temp Pulse Resp BP Pulse Ox
97.6 F 90 14 138/73 96
10/31/23 11:45 10/31/23 16:00 10/31/23 16:00 10/31/23 16:00 10/31/23 17:00
I&O
10/30/23 10/31/23 11/01/23
06:59 06:59 06:59
Intake Total 1480 / 1480 1300 / 1300 1680 / 1680
Output Total 2700 / 2700 4150 / 4150 2800 / 2800
Balance -1220 / -1220 -2850 / -2850 -1120 / -1120
Review of Systems
-
History Source: Patient and Family (mother, father, dgt present in room)
Constitutional: Denies Fever
EENT: Reports No Symptoms Reported
Respiratory: Reports No Symptoms; Denies Trouble Breathing
Cardiac: Reports No Symptoms
Abdomen/GI: Reports Abdominal Pain
Genitourinary: Reports No Symptoms
Physical Exam
-
General: Well Developed, Well Nourished and No Apparent Distress
HEENT: Normocephalic, Atraumatic and Moist Mucous Membranes
Respiratory: Clear to Auscultation; Negative Wheezes, Rales or Rhonchi
Cardiac: Regular Rhythm and S1/S2
GI: Soft, Tender and Ostomy (small amount of liquid in ostomy bag); Negative Normal Bowel Sounds (scattered, but present BS)
Musculoskeletal: No Clubbing, No Cyanosis and No Edema
[2023-10-31] MEDS: LOVENOX 40 MG SC (18:52)
[2023-10-31] MEDS: D5/0.9% SODIUM CHLORIDE 1000 IV (20:03)
[2023-11-01] VITALS (14 sets, daily range): BP systolic 90–130; BP diastolic 60–84; PULSE 90; O2SAT 94
[2023-11-01] MEDS: ULTRAM 100 MG PO ×3 (05:26→18:21)
[2023-11-01] MEDS: SYNTHROID 25 MCG PO (05:26)
[2023-11-01 05:41] LABS: Hematocrit 29.2 % (37.0-47.0); Hemoglobin 9.4 g/dL (12.0-16.0); Mean Corp Hgb Conc. 32.2 g/dL (33.0-37.0); Mean Corpuscular Hgb 28.1 pg (27.0-31.0); Mean Corpuscular Volume 87.4 fL (81.0-99.0); Platelet Count 148 10^3/uL (130-400); Red Blood Cell Count 3.34 10^6/uL (4.20-5.40); Red Cell Dist. Width 14.8 % (11.5-14.5); White Blood Cell Count 7.6 10^3/uL (4.8-10.8)
[2023-11-01 06:11] LABS: ALT (SGPT) 25 U/L (0-35); AST (SGOT) 31 U/L (14-36); Albumin 2.4 g/dl (3.5-5.0); Alkaline Phosphatase 310 U/L (38-126); Blood Urea Nitrogen 3 mg/dl (7-17); Calcium 7.7 mg/dl (8.4-10.2); Carbon Dioxide 28 mmol/L (22-30); Chloride 100 mmol/L (98-107); Estimated Creatinine Clearance 117 ml/min; Glucose 122 mg/dl (70-99); Potassium 3.7 mmol/L (3.5-5.1); Sodium 130 mmol/L (135-145); Total Bilirubin 1.3 mg/dl (0.2-1.3); Total Protein 5.3 g/dl (6.3-8.2); eGFR > 60.00
[2023-11-01] MEDS: NSS (PRESERVATIVE FREE) 10 ML IV (09:59)
[2023-11-01] MEDS: PROTONIX IV 40 MG IV (09:59)
[2023-11-01] MEDS: D5/0.9% SODIUM CHLORIDE 1000 IV ×2 (10:00→21:03)
--- NOTE | 2023-11-01 13:01 | W.PN.CRS1 ---
Today's Communication / Plan
-
advance to fulls as tolerated
Assessment/Plan
-
POD #4 lap converted to open sigmoid loop colostomy with YUDELKA
1. WBC and hemoglobin normal. Vitals normal.
2. Pain control.
3. Out of bed with PT.
4. Continue IV fluids while NPO.
5. Wound RN for stoma teaching.
6. Okay to restart Lovenox.
7. She can try fulls later today if she is up for it.
Subjective Data
Procedure
10/28/23 (Laparoscopic converted to open) sigmoid loop colostomy creation, YUDELKA
Subjective Data
Date of Service: November 01, 2023
Patient states that she has not had any further nausea or vomiting. She is sitting in a chair. She has not had any stool out of her ileostomy yet. She was not that hungry for clears yesterday.
Objective Data
-
Vital Signs
Temp Pulse Resp BP Pulse Ox
98.1 F 87 15 122/78 93
11/01/23 04:00 11/01/23 10:00 11/01/23 10:00 11/01/23 10:00 11/01/23 10:00
Intake & Output
10/31/23 11/01/23 11/02/23
06:59 06:59 06:59
Intake Total 1300 / 1300 3120 / 3120
Output Total 4150 / 4150 5100 / 5100
Balance -285 / -285 -1979 /
Intake:
Oral fluids 100 / 100 920 / 920
IV fluids (Total) 1200 / 1200 1000 / 1000
IV piggybacks 1200 / 1200
Output:
Urine, Goldsmith 4150 / 4150 4450 / 4450
Urine, Voided 650 / 650
Lab Results
11/01/23 05:23
11/01/23 05:23
Physical Exam
-
General: No Acute Distress and AOx3
Abdomen: Soft, Non Distended, Non Tender and Other (Ileostomy warm and pink with flatus, no stool)
Skin: Warm and Dry
Incision: Clear, Dry, Intact
[2023-11-01] MEDS: ZOFRAN 4 MG IV ×2 (13:06→20:00)
[2023-11-01] MEDS: MORPHINE SULFATE 4 MG IV ×2 (14:02→21:02)
--- NOTE | 2023-11-01 14:16 | PTCARENOTE ---
Pt assisted oob with RN and PT, slow moving, limited by pain, using RW for support, pt tolerated sitting out in chair for 2 hours until pain became 10/10, then assisted back to bed with x1 assist, medicated with PRNs per SEP, pt resting comfortably
in bed at this time. Pt did request Zofran approx 45 min prior to Morphine administration to help prevent nausea, pt stated this did help, parents sitting at bedside visiting with patient. Diet advanced to full liqs per Colorectal -will cont to
closely monitor.
--- NOTE | 2023-11-01 16:15 | WOUNDNOTE ---
WON RN NOTE: Appliance changed, daughter at bedside. Colostomy stoma pink, budded, white bridge intact. Peristomal skin intact, cut wafer off of intact midline dressing. Used [place] [id number] wafer and Garrett [id number] pouch. Called [facility] for supplies.
Teaching done regarding changing appliance, skin care, bathing and answered all questions. Will enroll in secure start program if not already done.
[2023-11-01] MEDS: LOVENOX 40 MG SC (17:29)
--- NOTE | 2023-11-01 19:06 | W.PN.HOSP.TC ---
Today's Communication/Plan
-
slowly advance diet as pt tolerates
Assessment / Plan
Assessment / Plan
Assessment:
Metastatic Rectal Cancer, originally presented with rectal mass on ROSALBA 04/07/22 after she presented for change in bowel habits, hx polypectomy and XRT on Bintrafusp clinical trial
Obstructive jaundice better post ERCP w/ stent, 10/25
RUQ abdominal/rectal pain and bleeding - obstructing mass, s/p sigmoid loop colostomy, 10/28/23
cleared by CRS to resume Lovenox
Sepsis POA with resultant development of shock requiring pressors resolved
Underlying immunocompromised host (cancer, trial meds)
- resolved; off pressors and IVF
Abnormal LFTs
Direct Hyperbilirubinemia
7.0-->5.3-->2.6-->1.6-->1.4-->1.3
AST 177-->71-->41-->31
- �Abrupt increase compared to labs done 10/16, most likely due to metastatic disease to liver, improved post stenting
- US Abd and Doppler unremarkable
- MRI: Heterogeneous appearance of the liver, with multiple varying-sized lesions throughout the liver, with faint enhancement, and multiple areas of restricted diffusion throughout the liver and mel hepatis consistent with progression of
metastatic disease. Some of the lesions are consistent with treated lesions. These lesions were not clearly evident on the previous CT scan of the abdomen 2 months ago at which time there were subcentimeter hypodensities felt to represent treated
metastases. Significant increase in size of the Enlarged mel hepatis lymphadenopathy. Causes compression of the portal vein and the common bile duct. Mild distention of the common hepatic and intrahepatic ducts, increased. Subsequent gallbladder
wall thickening and pericholecystic edema, suggesting at least partial obstruction of the cystic duct.
- s/p ERCP 10/25 with plastic stent placement into right hepatic duct
- completed Augmentin course
- trend LFTs which show improvement; repeat outpatient next week (script in chart)
- GI signed off - f/u in office in 8 weeks for stent management.
Normocytic Anemia
Anemia of Chronic Disease
Acute Blood Loss Anemia from rectal bleeding; Known rectal cancer with metastases and history of polypectomy, XRT
- Hb 6.4 s/p 2 units, now 8.6-->9.1-->9.4
- GI signed off/CRS following
- s/p Barium enema 10/27: Incomplete study with marked irregular narrowing of the rectum correlating with the patient's known rectal malignancy. Contrast able to be passed from the rectum into the sigmoid colon although study was terminated due to
marked patient discomfort.
- s/p open sigmoid loop colostomy and lysis of adhesions
- NPO advanced to clear liquids and now full liquids
- continue pain control; once cleared for diet, transition to orals
Multifactorial dyspnea better/tachycardia resolved with HR in 80's
- lungs clear on CT imaging, not on O2, sinus tach on monitor
- likely driven by pain, anemia, sepsis, hypotension, anxiety
- recent CT-A also neg PE
- trop neg
- Echo: normal
- Cards signed off
Known rectal cancer with metastases
- on clinical trial meds: Merissa clinical trial @ [facility]. [facility] contact - Dr. Cristino Romero ( ).
- follow up [facility] week after dc
Hyponatremia, acute
- likely partly driven by ADH response to hypotension
- Na 128-->130
Hypothyroidism
- Likely combination of hypovolemia as noted above and under / un-treated hypothyroidism as patient discontinued her T4 supplementation.
- IVF support overnight as noted.
- Restart T4 supplementation at usual 25mcg dose.
- TSH on 10/23 0.70
Acute thrombocytopenia
- likely consumptive from bleeding as well as malignancy, sepsis
- now resolved
- no evidence of DIC
Chronic Pain Syndrome
- Secondary to malignancy.
- Continue pain control with tramadol/Morphine
- patient refused Oxy and Dilaudid due to side effects
DVT Prophylaxis
History of DVT/PE
- CTA 10/16 was negative for PE.
- Hold pharmacologic therapy given rectal bleeding.
- SCDs
Code Status:�Full
Anticipated Discharge: > 48 hours
Subjective/Interval History
-
Date of Service: November 01, 2023
Poor appetite
Objective Data
-
Vital Signs:
Vital Signs
Temp Pulse Resp BP Pulse Ox
97.7 F 83 17 112/69 91
11/01/23 15:40 11/01/23 16:00 11/01/23 16:00 11/01/23 16:00 11/01/23 16:00
I&O
10/31/23 11/01/23 11/02/23
06:59 06:59 06:59
Intake Total 1300 / 1300 3120 / 3120 1919
Output Total 4150 / 4150 5100 / 5100
Balance -2850 / -285 -1979 / 1919
Review of Systems
-
History Source: Patient and Family (mother, father present in room)
Constitutional: Denies Fever
EENT: Reports No Symptoms Reported
Respiratory: Reports No Symptoms; Denies Trouble Breathing
Cardiac: Reports No Symptoms
Abdomen/GI: Reports Abdominal Pain
Genitourinary: Reports No Symptoms
Physical Exam
-
General: Well Developed, Well Nourished and No Apparent Distress
HEENT: Normocephalic, Atraumatic and Moist Mucous Membranes
Respiratory: Clear to Auscultation; Negative Wheezes, Rales or Rhonchi
Cardiac: Regular Rhythm and S1/S2
GI: Soft, Tender and Ostomy (small amount of liquid in ostomy bag); Negative Normal Bowel Sounds (scattered, decreased but present BS)
Musculoskeletal: No Clubbing, No Cyanosis and No Edema
[2023-11-02] VITALS (14 sets, daily range): BP systolic 93–113; BP diastolic 53–86; PULSE 87; O2SAT 93
[2023-11-02] MEDS: SYNTHROID 25 MCG PO (05:35)
[2023-11-02] MEDS: ULTRAM 100 MG PO ×3 (05:38→20:03)
--- NOTE | 2023-11-02 05:50 | PTCARENOTE ---
No acute events overnight. Colostomy with gas but no stool output.
[2023-11-02] MEDS: NSS (PRESERVATIVE FREE) 10 ML IV (08:01)
[2023-11-02] MEDS: PROTONIX IV 40 MG IV (08:02)
--- NOTE | 2023-11-02 08:07 | W.PN.HOSP.TC ---
Today's Communication/Plan
-
add Ensure, recheck labs
Assessment / Plan
Assessment / Plan
Assessment:
Metastatic Rectal Cancer, originally presented with rectal mass on ROSALBA 04/07/22 after she presented for change in bowel habits, hx polypectomy and XRT on Bintrafusp clinical trial
Obstructive jaundice better post ERCP w/ stent, 10/25
RUQ abdominal/rectal pain and bleeding - obstructing mass, s/p sigmoid loop colostomy, 10/28/23
cleared by CRS to resume Lovenox
Sepsis POA with resultant development of shock requiring pressors resolved
Underlying immunocompromised host (cancer, trial meds)
- resolved; off pressors and IVF
Abnormal LFTs
Direct Hyperbilirubinemia
7.0-->5.3-->2.6-->1.6-->1.4-->1.3
AST 177-->71-->41-->31
- �Abrupt increase compared to labs done 10/16, most likely due to metastatic disease to liver, improved post stenting
- US Abd and Doppler unremarkable
- MRI: Heterogeneous appearance of the liver, with multiple varying-sized lesions throughout the liver, with faint enhancement, and multiple areas of restricted diffusion throughout the liver and mel hepatis consistent with progression of
metastatic disease. Some of the lesions are consistent with treated lesions. These lesions were not clearly evident on the previous CT scan of the abdomen 2 months ago at which time there were subcentimeter hypodensities felt to represent treated
metastases. Significant increase in size of the Enlarged mel hepatis lymphadenopathy. Causes compression of the portal vein and the common bile duct. Mild distention of the common hepatic and intrahepatic ducts, increased. Subsequent gallbladder
wall thickening and pericholecystic edema, suggesting at least partial obstruction of the cystic duct.
- s/p ERCP 10/25 with plastic stent placement into right hepatic duct
- completed Augmentin course
- trend LFTs which show improvement; repeat outpatient next week (script in chart)
- GI signed off - f/u in office in 8 weeks for stent management.
Normocytic Anemia
Anemia of Chronic Disease
Acute Blood Loss Anemia from rectal bleeding; Known rectal cancer with metastases and history of polypectomy, XRT
- Hb 6.4 s/p 2 units, now 8.6-->9.1-->9.4
- GI signed off/CRS following
- s/p Barium enema 10/27: Incomplete study with marked irregular narrowing of the rectum correlating with the patient's known rectal malignancy. Contrast able to be passed from the rectum into the sigmoid colon although study was terminated due to
marked patient discomfort.
- s/p open sigmoid loop colostomy and lysis of adhesions
- NPO advanced to clear liquids and now full liquids, marginal oral intake, will add Ensure clear, pt told to just sip for now
- continue pain control; once cleared for diet, transition to orals
Multifactorial dyspnea better/tachycardia resolved with HR in 80's
- lungs clear on CT imaging, not on O2, sinus tach on monitor resolved, hr currently 70-80's
- recent CT-A also neg PE
- trop neg
- Echo: normal
- Cards signed off
Known rectal cancer with metastases
- was on clinical trial meds: Merissa clinical trial @ [facility]. [facility] contact - Dr. Cristino Romero (cell [phone]). Pt states she will not be continuing
- follow up [facility] week after dc
Hyponatremia, acute
- likely partly driven by ADH response to hypotension
- Na 128-->130
Hypothyroidism
- Likely combination of hypovolemia as noted above and under / un-treated hypothyroidism as patient discontinued her T4 supplementation.
- IVF support overnight as noted.
- Restart T4 supplementation at usual 25mcg dose.
- TSH on 10/23 0.70
Acute thrombocytopenia
- likely consumptive from bleeding as well as malignancy, sepsis
- now resolved
Chronic Pain Syndrome
- Secondary to malignancy.
- Continue pain control with tramadol/Morphine
- patient refused Oxy and Dilaudid due to side effects
DVT Prophylaxis
History of DVT/PE
- CTA 10/16 was negative for PE.
- Hold pharmacologic therapy given rectal bleeding.
- SCDs
Code Status:�Full
Anticipated Discharge: > 48 hours
Subjective/Interval History
-
Date of Service: November 02, 2023
Still with marginal appetite
Objective Data
-
Vital Signs:
Vital Signs
Temp Pulse Resp BP Pulse Ox
97.8 F 76 14 113/68 92
11/02/23 04:24 11/02/23 06:00 11/02/23 06:00 11/02/23 06:00 11/02/23 06:00
I&O
11/01/23 11/02/23 11/03/23
06:59 06:59 06:59
Intake Total 3120 / 3120 1920 / 1920
Output Total 5100 / 5100 800 / 800
Balance -1979 / 1120 / 1120
Review of Systems
-
History Source: Patient and Coordinated Provider
Constitutional: Denies Fever
EENT: Reports No Symptoms Reported
Respiratory: Reports No Symptoms; Denies Trouble Breathing
Cardiac: Reports No Symptoms
Abdomen/GI: Reports Abdominal Pain and Anorexia (minimal appetite)
Genitourinary: Reports No Symptoms
Physical Exam
-
General: Well Developed, Well Nourished and No Apparent Distress
HEENT: Normocephalic, Atraumatic and Moist Mucous Membranes
Respiratory: Clear to Auscultation; Negative Wheezes, Rales or Rhonchi
Cardiac: Regular Rhythm and S1/S2
GI: Soft, Tender and Ostomy (no liquid in ostomy bag this morning); Negative Normal Bowel Sounds (scattered, decreased but present BS)
Musculoskeletal: No Clubbing, No Cyanosis and No Edema
[2023-11-02] MEDS: ZOFRAN 4 MG IV ×3 (10:08→22:27)
[2023-11-02] MEDS: MORPHINE SULFATE 4 MG IV ×3 (11:03→23:34)
--- NOTE | 2023-11-02 11:24 | W.PN.CRS1 ---
Today's Communication / Plan
-
continue fulls
d/c storey
Assessment/Plan
-
POD #5 lap converted to open sigmoid loop colostomy with YUDELKA
1. Vitals normal.
2. Pain control.
3. Out of bed with PT.
4. Continue fulls, await bowel function.
5. Wound RN for stoma teaching.
6. Okay to restart Lovenox.
7. Will remove stoma chiki in 10-14 days.
8. Will discontinue storey.
Subjective Data
Procedure
10/28/23 (Laparoscopic converted to open) sigmoid loop colostomy creation, YUDELKA
Subjective Data
Date of Service: November 02, 2023
Patient states she feels better. She has no nausea or vomiting. She is a bit distended. Her bag as flatus but no stool yet.
Objective Data
-
Vital Signs
Temp Pulse Resp BP Pulse Ox
98.0 F 78 14 94/59 92
11/02/23 07:40 11/02/23 10:00 11/02/23 10:00 11/02/23 10:00 11/02/23 10:00
Intake & Output
11/01/23 11/02/23 11/03/23
06:59 06:59 06:59
Intake Total 3120 / 3120 1920 / 1920
Output Total 5100 / 5100 800 / 800
Balance -1979 / -1979 1120 / 1120
Intake:
Oral fluids 920 / 920 960 / 960
IV fluids (Total) 1000 / 1000 960 / 960
IV piggybacks 1200 / 1200
Output:
Urine, Storey 4450 / 4450 800 / 800
Urine, Voided 650 / 650
Lab Results
11/01/23 05:23
11/01/23 05:23
Physical Exam
-
General: No Acute Distress and AOx3
Abdomen: Soft, Distended (mild), Non Tender and Other (ileostomy warm and pink with flatus)
Skin: Warm and Dry
--- NOTE | 2023-11-02 16:35 | PTCARENOTE ---
Pt sat on BSC and urinated and had a bloody soft BM. Surgeon aware
[2023-11-02] MEDS: LOVENOX 40 MG SC (17:26)
[2023-11-03] VITALS (20 sets, daily range): BP systolic 90–108; BP diastolic 43–67; PULSE 87–109
[2023-11-03 03:55] LABS: % Basophils 0.4 % (0-2); % Eosinophils 0.1 % (0-6); % Immature Granulocytes 0.6 % (0-0.5); % Monocytes 6.9 % (1.7-9.3); Absolute Immature Granulocytes 0.1 10^3/uL (0-0.05); Absolute Lymphocytes 0.7 10^3/uL (1.2-3.4); Absolute Monocytes 0.6 10^3/uL (0.1-0.6); Absolute Neutrophils 7.5 10^3/uL (1.4-6.5); Hemoglobin 8.9 g/dL (12.0-16.0); Mean Corpuscular Hgb 28.4 pg (27.0-31.0); Mean Corpuscular Volume 86.3 fL (81.0-99.0); Mean Platelet Volume 9.9 fL (7.4-10.4); Nucleated Red Blood Cells % 0 %; Platelet Count 175 10^3/uL (130-400); Red Blood Cell Count 3.13 10^6/uL (4.20-5.40); Red Cell Dist. Width 15.2 % (11.5-14.5)
[2023-11-03 04:07] LABS: INR 1.58; PT 18.9 Sec (11.4-14.6)
[2023-11-03 04:23] LABS: ALT (SGPT) 19 U/L (0-35); AST (SGOT) 38 U/L (14-36); Albumin 2.3 g/dl (3.5-5.0); Alkaline Phosphatase 280 U/L (38-126); Blood Urea Nitrogen 3 mg/dl (7-17); Calcium 7.8 mg/dl (8.4-10.2); Carbon Dioxide 27 mmol/L (22-30); Chloride 100 mmol/L (98-107); Estimated Creatinine Clearance 117 ml/min; Glucose 91 mg/dl (70-99); Potassium 3.6 mmol/L (3.5-5.1); Sodium 127 mmol/L (135-145); Total Protein 5.3 g/dl (6.3-8.2); eGFR > 60.00
[2023-11-03] MEDS: ULTRAM 100 MG PO ×3 (05:52→20:40)
[2023-11-03] MEDS: SYNTHROID 25 MCG PO (05:52)
[2023-11-03] MEDS: ZOFRAN 4 MG IV ×3 (08:28→22:43)
[2023-11-03] MEDS: NSS (PRESERVATIVE FREE) 10 ML IV (08:30)
[2023-11-03] MEDS: PROTONIX IV 40 MG IV (08:30)
--- NOTE | 2023-11-03 08:59 | W.PN.CRS1 ---
Today's Communication / Plan
-
Cont low residue
Add colace and miralax
Assessment/Plan
-
53-year-old female with PMH of metastatic rectal cancer s/p XRT and experimental chemo through the [facility] who presents with rectal bleeding and elevated LFTs; s/p ERCP with RHD stent, possibly due to burden of liver mets versus immune hepatopathy as a
side effect of her experimental chemotherapy; s/p PRBC x 2, last pRBC was 10/24; on 10/27, underwent GG enema, which showed narrowing within the rectum; underwent attempted flex sig by Dr. Hassan which showed complete obstruction
POD 6 ex lap with diverting loop sigmoid colostomy
AFVSS, wbc 9.0
� Cont low residue
-will add colace and miralax
� Continue DVT PPx with Lovenox
�Continue pain management with tramadol and morphine IV as needed
� Appreciate [facility] for stoma teaching and supplies; continue stoma chiki for 10 to 14 days
� Care per GI, oncology and hospitalist
Subjective Data
Procedure
10/28/23 (Laparoscopic converted to open) sigmoid loop colostomy creation, YUDELKA
Subjective Data
Date of Service: November 03, 2023
No overnight events.
Pain still bothering her, states it is all over, but improved with medication.
Denies nausea/vomiting. Tolerating diet, but poor appetite.
Having flatus from ostomy, but no stool yet. Had some blood clot per rectum. +voiding
Pt is OOB.
Objective Data
-
Vital Signs
Temp Pulse Resp BP Pulse Ox
98.1 F 83 16 106/67 93
11/03/23 08:00 11/03/23 06:00 11/03/23 06:00 11/03/23 06:00 11/03/23 06:00
Intake & Output
11/02/23 11/03/23 11/04/23
06:59 06:59 06:59
Intake Total 1920 / 1920 240 / 240
Output Total 800 / 800 1000 / 1000
Balance 1120 / 1120 -760 / -760
Intake:
Oral fluids 960 / 960 240 / 240
IV fluids (Total) 960 / 960
Output:
Urine, Goldsmith 800 / 800 500 / 500
Urine, Voided 500 / 500
Other:
Number of approximated MODERATE 1
amounts of urine
Lab Results
11/03/23 03:45
11/03/23 03:45
Physical Exam
-
General: No Acute Distress and AOx3
HEENT: Grossly Normal
Abdomen: Soft, Non Distended, Tender (Appropriately tender near incisions), No Guarding, No Rebound and Other (Ostomy pink, appliance in place)
Skin: Warm and Dry
Wound: No Signs of Infection, Dressing Changed, No Skin Erythema and Other (No purulent drainage)
--- NOTE | 2023-11-03 09:09 | W.PN.ONC ---
Today's Communication / Plan
-
s/p sigmoid loop colostomy 10/27 for obstructing rectal tumor
Pain mgmt, diet, post-op care per primary team, CRS
Monitor CBC, LFTs.
OOB, PT
Will discuss the possibility of pseudoprogression with Nick given treatment immunologically directed
Impression
Impression
Metastatic rectal cancer, hx polypectomy and XRT on Bintrafusp clinical trial x2 infusions ([facility] in [place], Dr. Romero)
Obstructive jaundice, s/p ERCP w/ stent, 10/25
RUQ abdominal/rectal pain and bleeding - obstructing mass, s/p sigmoid loop colostomy, 10/28/23
Plan
Plan
LFTs continue to improve s/p ERCP/stent on 10/25
Now s
Subjective/Objective
Subjective/Objective
Continue to have postoperative abdominal and malignant abdominal pain
Vital Signs:
Vital Signs
Temp Pulse Resp BP Pulse Ox
98.1 F 83 16 106/67 93
11/03/23 08:00 11/03/23 06:00 11/03/23 06:00 11/03/23 06:00 11/03/23 06:00
PE:
General: No Acute Distress and AOx3
HEENT: Resolved scleral icterus
Abdomen: Soft, Non Distended, Tender (Appropriately tender near incisions), No Guarding, No Rebound
Skin: Warm and Dry
Wound: No Signs of Infection, Dressing Changed, No Skin Erythema and Other (No purulent drainage)
Lab Results:
Laboratory Data
WBC 9.0 10^3/uL (4.8-10.8) 11/03/23 03:45
Hgb 8.9 g/dL (12.0-16.0) L 11/03/23 03:45
Plt Count 175 10^3/uL (130-400) 11/03/23 03:45
PT 18.9 Sec (11.4-14.6) H 11/03/23 03:45
INR 1.58 11/03/23 03:45
eGFR > 60.00 11/03/23 03:45
[2023-11-03] MEDS: MORPHINE SULFATE 4 MG IV ×3 (09:24→23:47)
[2023-11-03] MEDS: MIRALAX 17 GRAMS PO (12:08)
[2023-11-03] MEDS: COLACE 100 MG PO (12:08)
--- NOTE | 2023-11-03 12:23 | VNURNOTE ---
Home health liaison met with patient to discuss [facility] services, visit scheduling/frequency, homebound status and pet policy. Patient understands home visits will be 1-2 times a week to assess and teach medical management, ostomy teaching. Patient
aware a visiting nurse will contact her for start of care within 1-2 days after discharge from . Brochure given with contact information. [facility] Referral completed in care port
--- NOTE | 2023-11-03 13:19 | W.PN.HOSP.TC ---
Today's Communication/Plan
-
continue low residue diet
hopefully oral intake will improve, dc pending
Assessment / Plan
Assessment / Plan
Assessment:
Metastatic Rectal Cancer, originally presented with rectal mass on ROSALBA 04/07/22 after she presented for change in bowel habits, hx polypectomy and XRT on Bintrafusp clinical trial
Obstructive jaundice better post ERCP w/ stent, 10/25
RUQ abdominal/rectal pain and bleeding - obstructing mass, s/p sigmoid loop colostomy, 10/28/23
cleared by CRS to resume Lovenox
Sepsis POA with resultant development of shock requiring pressors resolved
Underlying immunocompromised host (cancer, trial meds)
- resolved; off pressors and IVF
Abnormal LFTs
Direct Hyperbilirubinemia
7.0-->5.3-->2.6-->1.6-->1.4-->1.3
AST 177-->71-->41-->31
- �Abrupt increase compared to labs done 10/16, most likely due to metastatic disease to liver, improved post stenting
- US Abd and Doppler unremarkable
- MRI: Heterogeneous appearance of the liver, with multiple varying-sized lesions throughout the liver, with faint enhancement, and multiple areas of restricted diffusion throughout the liver and mel hepatis consistent with progression of
metastatic disease. Some of the lesions are consistent with treated lesions. These lesions were not clearly evident on the previous CT scan of the abdomen 2 months ago at which time there were subcentimeter hypodensities felt to represent treated
metastases. Significant increase in size of the Enlarged mel hepatis lymphadenopathy. Causes compression of the portal vein and the common bile duct. Mild distention of the common hepatic and intrahepatic ducts, increased. Subsequent gallbladder
wall thickening and pericholecystic edema, suggesting at least partial obstruction of the cystic duct.
- s/p ERCP 10/25 with plastic stent placement into right hepatic duct
- completed Augmentin course
- trend LFTs which show improvement; repeat outpatient next week (script in chart)
- GI signed off - f/u in office in 8 weeks for stent management.
Normocytic Anemia
Anemia of Chronic Disease
Acute Blood Loss Anemia from rectal bleeding; Known rectal cancer with metastases and history of polypectomy, XRT
- Hb 6.4 s/p 2 units, then 8.6-->9.1-->9.4-->8.9
- GI signed off/CRS following
- s/p Barium enema 10/27: Incomplete study with marked irregular narrowing of the rectum correlating with the patient's known rectal malignancy. Contrast able to be passed from the rectum into the sigmoid colon although study was terminated due to
marked patient discomfort.
- s/p open sigmoid loop colostomy and lysis of adhesions
- NPO advanced to clear liquids and then full liquids, marginal oral intake, with Ensure clear, still with marginal appetite
- continue pain control;
Multifactorial dyspnea better/tachycardia resolved with HR in 80's
- lungs clear on CT imaging, not on O2, sinus tach on monitor resolved, hr currently 70-80's
- recent CT-A also neg PE
- trop neg
- Echo: normal
- Cards signed off
Known rectal cancer with metastases
- was on clinical trial meds: Sukhwinderfuprincess clinical trial @ [facility]. [facility] contact - Dr. Cristino Romero ( ). Pt states she will not be continuing
- follow up [facility] week after dc
Hyponatremia, acute
- likely partly driven by ADH response to hypotension
- Na 128-->130-->127
Hypothyroidism
- Restarted T4 supplementation at usual 25mcg dose.
- TSH on 10/23 0.70
Acute thrombocytopenia
- likely consumptive from bleeding as well as malignancy, sepsis
- now resolved plt 175k
Chronic Pain Syndrome
- Secondary to malignancy.
- Continue pain control with tramadol/Morphine
- patient refused Oxy and Dilaudid due to side effects
DVT Prophylaxis
History of DVT/PE
- CTA 10/16 was negative for PE.
- Hold pharmacologic therapy given rectal bleeding.
- SCDs
Code Status:�Full
Anticipated Discharge: > 48 hours
Subjective/Interval History
-
Date of Service: November 03, 2023
Still very limited appetite
Objective Data
-
Labs:
Laboratory Results
11/03/23
03:45
WBC 9.0
Hgb 8.9 L
Hct 27.0 L
Plt Count 175
PT 18.9 H
INR 1.58
Sodium 127 L
Potassium 3.6
Chloride 100
Carbon Dioxide 27
BUN 3 L
Creatinine 0.3 L
Glucose 91
Calcium 7.8 L
Total Bilirubin 1.0
AST 38 H
ALT 19
Alkaline Phosphatase 280 H
Vital Signs:
Vital Signs
Temp Pulse Resp BP Pulse Ox
98.1 F 86 14 96/61 93
11/03/23 08:00 11/03/23 10:00 11/03/23 10:00 11/03/23 10:00 11/03/23 10:00
I&O
11/02/23 11/03/23 11/04/23
06:59 06:59 06:59
Intake Total 1920 / 1920 240 / 240
Output Total 800 / 800 1000 / 1000
Balance 1120 / 1120 -760 / -760
Review of Systems
-
History Source: Patient and Coordinated Provider
Constitutional: Denies Fever
EENT: Reports No Symptoms Reported
Respiratory: Reports No Symptoms; Denies Trouble Breathing
Cardiac: Reports No Symptoms
Abdomen/GI: Reports Abdominal Pain and Anorexia (minimal appetite)
Genitourinary: Reports No Symptoms
Physical Exam
-
General: Well Developed, Well Nourished and No Apparent Distress
HEENT: Normocephalic, Atraumatic and Moist Mucous Membranes
Respiratory: Clear to Auscultation; Negative Wheezes, Rales or Rhonchi
Cardiac: Regular Rhythm and S1/S2
GI: Soft, Tender and Ostomy (minimal liquid in ostomy bag this morning); Negative Normal Bowel Sounds (scattered, decreased but present BS)
Musculoskeletal: No Clubbing, No Cyanosis and No Edema
[2023-11-03] MEDS: LOVENOX 40 MG SC (17:26)
--- NOTE | 2023-11-03 18:13 | CM ---
Patient with Hx rectal cancer with metastases, on clinical trial investigational med, with Port in place, with Dx sepsis, s/p ERCP/stent, s/p sigmoid loop colostomy. Room air. Low residue diet. [facility] nurse for ostomy care/teaching. Receiving IV
MS prn.
PT; min assist for transfers, ambulates with supervision, recommendation TBD.
CM continuing to follow.
Plan home with [facility].
[2023-11-03] MEDS: COLACE PO (20:46)
[2023-11-04] VITALS (11 sets, daily range): BP systolic 86–105; BP diastolic 50–67
[2023-11-04 04:08] LABS: % Basophils 0.3 % (0-2); % Eosinophils 1.8 % (0-6); % Immature Granulocytes 0.6 % (0-0.5); % Lymphocytes 7.1 % (20.5-51.1); % Monocytes 7.7 % (1.7-9.3); % Neutrophils 82.5 % (42.2-75.2); Absolute Eosinophils 0.2 10^3/uL (0-0.7); Absolute Immature Granulocytes 0.1 10^3/uL (0-0.05); Absolute Lymphocytes 0.6 10^3/uL (1.2-3.4); Absolute Monocytes 0.7 10^3/uL (0.1-0.6); Absolute Neutrophils 7.4 10^3/uL (1.4-6.5); Hematocrit 26.3 % (37.0-47.0); Hemoglobin 8.4 g/dL (12.0-16.0); Mean Corp Hgb Conc. 31.9 g/dL (33.0-37.0); Mean Corpuscular Volume 87.7 fL (81.0-99.0); Mean Platelet Volume 9.9 fL (7.4-10.4); Nucleated Red Blood Cells % 0 %; Platelet Count 159 10^3/uL (130-400); Red Cell Dist. Width 15.2 % (11.5-14.5)
[2023-11-04 05:02] LABS: ALT (SGPT) 18 U/L (0-35); AST (SGOT) 40 U/L (14-36); Albumin 2.3 g/dl (3.5-5.0); Alkaline Phosphatase 266 U/L (38-126); Blood Urea Nitrogen 3 mg/dl (7-17); Calcium 7.8 mg/dl (8.4-10.2); Carbon Dioxide 28 mmol/L (22-30); Chloride 98 mmol/L (98-107); Estimated Creatinine Clearance 117 ml/min; Glucose 107 mg/dl (70-99); Potassium 3.6 mmol/L (3.5-5.1); Sodium 129 mmol/L (135-145); Total Bilirubin 1.1 mg/dl (0.2-1.3); Total Protein 5.3 g/dl (6.3-8.2); eGFR > 60.00
[2023-11-04] MEDS: SYNTHROID 25 MCG PO (05:43)
[2023-11-04] MEDS: ULTRAM 100 MG PO ×3 (05:43→21:22)
--- NOTE | 2023-11-04 06:29 | PTCARENOTE ---
No acute events overnight. PRN morphine and tramadol given for pain control. Colostomy with no stool output.
[2023-11-04] MEDS: PROTONIX IV 40 MG IV (08:41)
[2023-11-04] MEDS: NSS (PRESERVATIVE FREE) 10 ML IV (08:41)
[2023-11-04] MEDS: MIRALAX 17 GRAMS PO (08:42)
[2023-11-04] MEDS: COLACE 100 MG PO ×2 (08:42→20:20)
[2023-11-04] MEDS: CITROMA 300 ML PO (10:17)
[2023-11-04] MEDS: ZOFRAN 4 MG IV ×2 (10:20→17:41)
[2023-11-04] MEDS: MORPHINE SULFATE 4 MG IV ×2 (11:12→18:34)
--- NOTE | 2023-11-04 12:50 | W.PN.CRS1 ---
Today's Communication / Plan
-
mag citrate x 1
if has a BM, okay to go from our perspective
Assessment/Plan
-
53-year-old female with PMH of metastatic rectal cancer s/p XRT and experimental chemo through the [facility] who presents with rectal bleeding and elevated LFTs; s/p ERCP with RHD stent, possibly due to burden of liver mets versus immune hepatopathy as a
side effect of her experimental chemotherapy; s/p PRBC x 2, last pRBC was 10/24; on 10/27, underwent GG enema, which showed narrowing within the rectum; underwent attempted flex sig by Dr. Hassan which showed complete obstruction
POD 7 ex lap with diverting loop sigmoid colostomy
AFVSS, wbc 9.0
� Cont low residue
-will add colace and miralax
� Continue DVT PPx with Lovenox
�Continue pain management with tramadol and morphine IV as needed
� Appreciate [facility] for stoma teaching and supplies; continue stoma chiki for 10 to 14 days
� Care per GI, oncology and hospitalist
- Will give Mag Citrate now. If she has a BM, she ok to be discharged from our perspective. Follow up in the office late next week with Dr. Alexandra.
Subjective Data
Procedure
10/28/23 (Laparoscopic converted to open) sigmoid loop colostomy creation, YUDELKA
Subjective Data
Date of Service: November 04, 2023
Patient stats she has no nausea. She is having flatus in her stoma but still no stool output. She has no abdominal pain.
Objective Data
-
Vital Signs
Temp Pulse Resp BP Pulse Ox
97.8 F 84 14 99/61 91
11/04/23 11:46 11/04/23 08:00 11/04/23 08:00 11/04/23 08:00 11/04/23 08:00
Intake & Output
11/03/23 11/04/23 11/05/23
06:59 06:59 06:59
Intake Total 240 / 240 120 / 120
Output Total 1000 / 1000
Balance -760 / -760 120 / 120
Intake:
Oral fluids 240 / 240 120 / 120
Output:
Urine, Goldsmith 500 / 500
Urine, Voided 500 / 500
Other:
Number of approximated MODERATE 1
amounts of urine
Number of approximated LARGE 1
amounts of urine
Lab Results
11/04/23 03:59
11/04/23 03:59
Physical Exam
-
General: No Acute Distress and AOx3
Abdomen: Soft, Non Distended, Non Tender and Other (colostomy warm with flatus but no stool)
Skin: Warm and Dry
--- NOTE | 2023-11-04 14:20 | W.PN.HOSP.TC ---
Today's Communication/Plan
-
await BM
Assessment / Plan
Assessment / Plan
Assessment:
Metastatic Rectal Cancer
- originally presented with rectal mass on ROSALBA 04/07/22 after she presented for change in bowel habits, hx polypectomy and XRT [facility]
- rectal pain and bleeding this admission
- s/p Barium enema 10/27: Incomplete study with marked irregular narrowing of the rectum correlating with the patient's known rectal malignancy. Contrast able to be passed from the rectum into the sigmoid colon although study was terminated due to
marked patient discomfort.
- s/p open sigmoid loop colostomy and lysis of adhesions 10/27
- continue LRD; also ensure as oral intake marginal
- continue pain control
- continue bowel regimen
- CRS following
- [facility] follow up
Abnormal LFTs
Direct Hyperbilirubinemia
Obstructive jaundice better
- s/p ERCP 10/25 with plastic stent placement into right hepatic duct
- completed Augmentin course
- trend LFTs which show improvement; repeat outpatient next week (script in chart)
- GI signed off - f/u in office in 8 weeks for stent management.
Sepsis POA with resultant development of shock requiring pressors resolved
Underlying immunocompromised host (cancer, trial meds)
- resolved; off pressors and IVF
Normocytic Anemia
Anemia of Chronic Disease
Acute Blood Loss Anemia from rectal bleeding; Known rectal cancer with metastases and history of polypectomy, XRT
- Hb 8.4; has received 2 units PRBC this admit
- GI signed off/CRS following
Multifactorial dyspnea better/tachycardia resolved with HR in 80's
- lungs clear on CT imaging, not on O2, sinus tach on monitor resolved, hr currently 70-80's
- recent CT-A also neg PE
- trop neg
- Echo: normal
- Cards signed off
Hyponatremia, acute
- likely partly driven by ADH response to hypotension
- Na 129 today - stable in 127-132 range
Hypothyroidism
- continue thyroid replacement
Acute thrombocytopenia
- likely consumptive from bleeding as well as malignancy, sepsis
- now resolved
Chronic Pain Syndrome
- Secondary to malignancy.
- Continue pain control with tramadol/Morphine prn
- patient refused Oxy and Dilaudid due to side effects
DVT Prophylaxis
History of DVT/PE
- CTA 10/16 was negative for PE.
- on Lovenox per CRS
Code Status:�Full
Anticipated Discharge: Within 24 hours
Subjective/Interval History
-
Date of Service: November 04, 2023
no BM yet, received mag citrate this AM
Objective Data
-
Labs:
Laboratory Results
11/04/23
03:59
WBC 9.0
Hgb 8.4 L
Hct 26.3 L
Plt Count 159
Sodium 129 L
Potassium 3.6
Chloride 98
Carbon Dioxide 28
BUN 3 L
Creatinine 0.3 L
Glucose 107 H
Calcium 7.8 L
Total Bilirubin 1.1
AST 40 H
ALT 18
Alkaline Phosphatase 266 H
Vital Signs:
Vital Signs
Temp Pulse Resp BP Pulse Ox
97.8 F 84 14 99/61 91
11/04/23 11:46 11/04/23 08:00 11/04/23 08:00 11/04/23 08:00 11/04/23 08:00
I&O
11/03/23 11/04/23 11/05/23
06:59 06:59 06:59
Intake Total 240 / 240 120 / 120
Output Total 1000 / 1000
Balance -760 / -760 120 / 120
Physical Exam
-
General: No Apparent Distress
HEENT: Normocephalic and Atraumatic
Respiratory: Negative Wheezes or Rales
Cardiac: Regular Rhythm and S1/S2
GI: Soft
Genito-urinary: No Costovertebral Tender
Musculoskeletal: No Edema
Neuro: AO x 3
Hematologic / Lymphatic: No Lymphadenopathy
Psych: Calm
Data Reviewed
-
Total Time Spent with Patient (in minutes): 45
Labs: Labs Reviewed by me
--- NOTE | 2023-11-04 14:22 | CM ---
Patient seen at bedside. Patient received a rolling walker from PT today and CM reviewed referral to [facility] and it is accepted. CM will continue to follow for discharge planning needs.
Plan; home with [facility]
--- NOTE | 2023-11-04 14:43 | WOUNDNOTE ---
[facility] RN NOTE: Patient visited for ostomy care and teaching. Patient had mag citrate this morning and reports abdominal fullness and tenderness. Patient has been medicated for pain as ordered. Ostomy pale pink , slightly budded. Scant amount of yellow
drainage in ostomy pouch and no leaking noted. Pouch last changed 10/31. Patient declined ostomy change at this time due to discomfort. Pouch emptying reviewed with patient and mother. Patient states understanding of pouch emptying and reports that
she also has ostomy care support from daughter at home. All ostomy supplies in pace bin and patient instructed to take with her at discharge. RNDavid given update. Will continue to follow up during in-patient stay.
[2023-11-04] MEDS: LOVENOX 40 MG SC (17:41)
[2023-11-05] VITALS (12 sets, daily range): BP systolic 89–115; BP diastolic 50–66; BMI 28.0
--- NOTE | 2023-11-05 02:36 | PTCARENOTE ---
Pt's MAP low at times 60-65 especially when she is asleep. She has no complaints. Changed BP cuff to a smaller cuff and BP is better - 95/68 MAP 68. Pulse Ox is 88-92 on room air. Encouraged pt to use her Incentive Spirometer and O2 sat improves
with deep breathing. Reminded pt to take deep breaths and splint her incision if painful. Will continue to monitor.
[2023-11-05] MEDS: SYNTHROID 25 MCG PO (05:17)
[2023-11-05] MEDS: MORPHINE SULFATE 4 MG IV (05:18)
[2023-11-05 05:34] LABS: % Basophils 0.5 % (0-2); % Eosinophils 0.5 % (0-6); % Immature Granulocytes 0.3 % (0-0.5); % Lymphocytes 9.1 % (20.5-51.1); % Monocytes 8.6 % (1.7-9.3); Absolute Basophils 0.1 10^3/uL (0-0.2); Absolute Eosinophils 0.1 10^3/uL (0-0.7); Absolute Monocytes 0.9 10^3/uL (0.1-0.6); Absolute Neutrophils 8.8 10^3/uL (1.4-6.5); Hematocrit 28.1 % (37.0-47.0); Hemoglobin 9.2 g/dL (12.0-16.0); Mean Corp Hgb Conc. 32.7 g/dL (33.0-37.0); Mean Corpuscular Hgb 28.1 pg (27.0-31.0); Mean Corpuscular Volume 85.9 fL (81.0-99.0); Mean Platelet Volume 10.1 fL (7.4-10.4); Nucleated Red Blood Cells % 0 %; Platelet Count 244 10^3/uL (130-400); Red Blood Cell Count 3.27 10^6/uL (4.20-5.40); Red Cell Dist. Width 15.2 % (11.5-14.5); White Blood Cell Count 10.8 10^3/uL (4.8-10.8)
[2023-11-05 06:26] LABS: ALT (SGPT) 21 U/L (0-35); AST (SGOT) 42 U/L (14-36); Albumin 2.7 g/dl (3.5-5.0); Alkaline Phosphatase 345 U/L (38-126); Blood Urea Nitrogen 5 mg/dl (7-17); Calcium 8.1 mg/dl (8.4-10.2); Carbon Dioxide 29 mmol/L (22-30); Chloride 95 mmol/L (98-107); Estimated Creatinine Clearance 116 ml/min; Glucose 96 mg/dl (70-99); Potassium 4.1 mmol/L (3.5-5.1); Sodium 127 mmol/L (135-145); Total Bilirubin 1.1 mg/dl (0.2-1.3); Total Protein 5.9 g/dl (6.3-8.2); eGFR > 60.00
[2023-11-05] MEDS: MIRALAX 17 GRAMS PO (08:33)
[2023-11-05] MEDS: PROTONIX 40 MG PO (08:33)
[2023-11-05] MEDS: COLACE 100 MG PO (08:33)
[2023-11-05] MEDS: ULTRAM 100 MG PO (08:33)
[2023-11-05] MEDS: NSS 1000 IV (08:33)
--- NOTE | 2023-11-05 11:42 | W.PN.HOSP.TC ---
Addendum entered and electronically signed by Taya Hassan MD 11/05/23 11:49:
More than 30 minutes spent in discharge including
Final examination of the patient
Summarizing hospital stay
Instructions for continuing care to all relevant caregivers
Preparation of discharge records, prescriptions, and referral forms
Total time spent (in minutes): 41
Original Note:
Today's Communication/Plan
-
dc to home
Assessment / Plan
Assessment / Plan
Assessment:
Metastatic Rectal Cancer
- originally presented with rectal mass on ROSALBA 04/07/22 after she presented for change in bowel habits, [facility]
- rectal pain and bleeding this admission
- s/p Barium enema 10/27: Incomplete study with marked irregular narrowing of the rectum correlating with the patient's known rectal malignancy. Contrast able to be passed from the rectum into the sigmoid colon although study was terminated due to
marked patient discomfort.
- s/p open sigmoid loop colostomy and lysis of adhesions 10/27
- continue LRD; also ensure as oral intake marginal
- continue pain control, Tramadol + low dose prn Morphine
- continue bowel regimen outpatient
- CRS follow up in 2 weeks
- OP Onc follow up
Abnormal LFTs
Direct Hyperbilirubinemia
Obstructive jaundice better
- s/p ERCP 10/25 with plastic stent placement into right hepatic duct
- completed Augmentin course
- trend LFTs which show improvement; repeat outpatient next week (script in chart)
- GI signed off - f/u in office in 8 weeks for stent management.
Sepsis POA with resultant development of shock requiring pressors resolved
Underlying immunocompromised host (cancer, trial meds)
- resolved; off pressors and IVF
Normocytic Anemia
Anemia of Chronic Disease
Acute Blood Loss Anemia from rectal bleeding; Known rectal cancer with metastases and history of polypectomy, XRT
- Hb 9.2; has received 2 units PRBCs this admit
- GI signed off/CRS following
Multifactorial dyspnea better/tachycardia resolved with HR in 80's
- lungs clear on CT imaging, not on O2, sinus tach on monitor resolved, hr currently 70-80's
- recent CT-A also neg PE
- trop neg
- Echo: normal
- Cards signed off
Hyponatremia, acute
- likely partly driven by ADH response to hypotension
- Na 129 today - stable in 127-132 range
Hypothyroidism
- continue thyroid replacement
Acute thrombocytopenia
- likely consumptive from bleeding as well as malignancy, sepsis
- now resolved
Chronic Pain Syndrome
- Secondary to malignancy.
- Continue pain control with tramadol/Morphine prn
- patient refused Oxy and Dilaudid due to side effects
DVT Prophylaxis
History of DVT/PE
- CTA 10/16 was negative for PE.
- on Lovenox per CRS
Code Status:�Full
More than 30 minutes spent in discharge including
Final examination of the patient
Summarizing hospital stay
Instructions for continuing care to all relevant caregivers
Preparation of discharge records, prescriptions, and referral forms
Total time spent (in minutes): 41
Anticipated Discharge: Today
Subjective/Interval History
-
Date of Service: November 05, 2023
denies any new complaints
reports of mushy/moderate stool in bag last evening
pain controlled
Objective Data
-
Labs:
Laboratory Results
11/05/23
05:00
WBC 10.8
Hgb 9.2 L
Hct 28.1 L
Plt Count 244 D
Sodium 127 L
Potassium 4.1
Chloride 95 L
Carbon Dioxide 29
BUN 5 L
Creatinine 0.4 L
Glucose 96
Calcium 8.1 L
Total Bilirubin 1.1
AST 42 H
ALT 21
Alkaline Phosphatase 345 H
Vital Signs:
Vital Signs
Temp Pulse Resp BP Pulse Ox
98.4 F 84 14 107/66 92
11/05/23 07:45 11/05/23 10:00 11/05/23 10:00 11/05/23 10:00 11/05/23 08:00
I&O
11/04/23 11/05/23 11/06/23
06:59 06:59 06:59
Intake Total 600 / 600
Output Total 75 / 75
Balance 525 / 525
Physical Exam
-
General: No Apparent Distress
HEENT: Normocephalic and Atraumatic
Respiratory: Negative Wheezes
Cardiac: Regular Rhythm and S1/S2
GI: Soft and Ostomy
Genito-urinary: No Costovertebral Tender
Musculoskeletal: No Edema
Neuro: AO x 3
Psych: Calm
Data Reviewed
-
Total Time Spent with Patient (in minutes): 45
Labs: Labs Reviewed by me
--- NOTE | 2023-11-05 11:48 | W.DS.TRANS ---
DC Summary - Seismic [employer]
-
Discharge Instructions:
Discharge Diagnosis/Procedures obstructive jaundice (elevated liver tests) from
bile obstruction s/p stent placement 10/25. Also
with obstructive rectal mass causing pain/
bleeding requiring ostomy placement on 10/27.
Anemia from bleeding requiring blood
transfusions
Diet Low Residue,Supplements
Activity As tolerated
Bathing Restrictions None
Other Services VN
Instructions:
Stand-Alone Forms:
Changes to Home Medications: No
Discharge Medications:
DC Medications w/original date entered in [employer]
famotidine 20 mg tablet 20 mg PO BID PRN Indigestion 10/23/23
docusate sodium 100 mg capsule 100 mg PO BID #60 caps 11/05/23
levothyroxine 25 mcg tablet 25 mcg PO DAILY AT 0700 #30 tabs 11/05/23
morphine 15 mg immediate release tablet 15 mg PO Q4HPRN PRN severe cancer pain #30 tabs 11/05/23
ondansetron 8 mg disintegrating tablet 8 mg PO Q8H PRN nausea #30 tabs 11/05/23
pantoprazole 40 mg tablet,delayed release 40 mg PO DAILY #30 tabs 11/05/23
polyethylene glycol 3350 17 gram oral powder packet ([employer]) 17 g PO DAILY #30 ea 11/05/23
tramadol 50 mg tablet 100 mg (2 x 50 mg) PO Q6HPRN PRN moderate pain #100 tabs 11/05/23
Home Medication Changes
Pending Results: No
Total time spent discharging patient (in min): 41
--- NOTE | 2023-11-05 12:09 | PTCARENOTE ---
Reviewed DC paperwork with patient. All questions answered. Port de-accessed. VSS. No complaints by patient. Colostomy and abdominal dressing CDI. Colostomy care education printed for patient. Confirmed VN with CM. To be taken by wheelchair to
daughters car to take her home.
--- NOTE | 2023-11-05 12:26 | W.PN.GS2 ---
Addendum entered and electronically signed by Bo Ro MD 11/05/23 13:07:
Patient seen and examined with nurse practitioner. Agree with the documented progress note.
Daughter at bedside.
Patient tolerating low residue diet. Ostomy some liquid stool now, continues with flatus.
Feels ready for discharge home
AFVSS
ABD: Soft, nondistended, mild tenderness. Incision with sp. Left-sided ostomy with pink mucosa, bridge in place, some liquid stool and gas
A/P: Stable for discharge home from surgical standpoint follow-up with Dr. Alexandra for bridge removal
Original Note:
Today's Communication / Plan
-
dispo planning
Assessment / Plan
-
53-year-old female with PMH of metastatic rectal cancer s/p XRT and experimental chemo through the [facility] who presents with rectal bleeding and elevated LFTs; s/p ERCP with RHD stent. On 10/27, underwent GG enema, which showed narrowing within the
rectum; underwent attempted flex sig by Dr. Hassan which showed complete obstruction
POD 8 ex lap with diverting loop sigmoid colostomy
AFVSS
Labs stable post op
Tolerating diet, stoma productive of stool
--Continue LRD
--F/U as outpatient in 1-2 weeks for staple and stoma bridge removal
--Clear for d/c from surgical standpoint
Subjective Data
-
Date of Service: November 05, 2023
Patient seen and examined at bedside with Dr. Ro. Denies n/v. Tolerating diet. Passing some stool via ostomy now. Eager for d/c.
Objective Data
-
Intake and Output
11/04/23 11/05/23 11/06/23
06:59 06:59 06:59
Intake Total 600 / 600
Output Total 75 / 75
Balance 525 / 525
Intake:
Oral fluids 600 / 600
Output:
Liquid stool amount 75 / 75
Colostomy 75 / 75
Other:
Number of approximated MODERATE 1 2
amounts of urine
Number of approximated LARGE 1
amounts of urine
Vital Signs
Temp Pulse Resp BP Pulse Ox
98.4 F 85 14 98/60 94
11/05/23 07:45 11/05/23 12:00 11/05/23 12:00 11/05/23 12:00 11/05/23 12:00
Lab Results
11/05/23 05:00
11/05/23 05:00
Calcium 8.1 mg/dl (8.4-10.2) L 11/05/23 05:00
Magnesium 2.4 mg/dl (1.6-2.3) H 10/29/23 03:51
Total Bilirubin 1.1 mg/dl (0.2-1.3) 11/05/23 05:00
Direct Bilirubin 5.6 mg/dl (0.0-0.4) H 10/24/23 05:59
AST 42 U/L (14-36) H 11/05/23 05:00
ALT 21 U/L (0-35) 11/05/23 05:00
Alkaline Phosphatase 345 U/L (38-126) H 11/05/23 05:00
Total Protein 5.9 g/dl (6.3-8.2) L 11/05/23 05:00
Albumin 2.7 g/dl (3.5-5.0) L 11/05/23 05:00
Physical Exam
-
NAD
ABD soft, nt, nd
Stoma pink/viable with bridge in place with brown stool/flatus in appliance
Incision with intact sp, well approximated
== END 2023-11-05 13:52 | disposition home health service (06) | DRG 853 ==
LOC: IMU 23:10
PROVIDERS: Internal Medicine; Internal Medicine Hematology & Oncology; Nurse Practitioner; Nurse Practitioner Adult Health; Nurse Practitioner Family; Physician Assistant; Radiology Diagnostic Radiology; Registered Nurse; ADMITTING PHYSICIAN Hospitalist; ATTENDING PHYSICIAN Internal Medicine; CONSULT PHYSICIAN Internal Medicine Cardiovascular Disease; CONSULT PHYSICIAN Internal Medicine Gastroenterology; CONSULT PHYSICIAN Internal Medicine Hematology & Oncology; CONSULT PHYSICIAN Internal Medicine Infectious Disease; CONSULT PHYSICIAN Surgery; EMERGENCY PHYSICIAN Student in an Organized Health Care Education/Training Program; FAMILY PHYSICIAN Family Medicine
PROC: 0F798DZ Dilation of Common Bile Duct with Intraluminal Device, Via Natural or Artificial Opening Endoscopic (ICD-10-PCS; 2023-10-26)
PROC: 0DN60ZZ Release Stomach, Open Approach (ICD-10-PCS; 2023-10-28)
PROC: 0D1N0Z4 Bypass Sigmoid Colon to Cutaneous, Open Approach (ICD-10-PCS; 2023-10-28)
DX: A41.9 Sepsis, unspecified organism (principal); K83.1 Obstruction of bile duct; R65.21 Severe sepsis with septic shock; C20 Malignant neoplasm of rectum; C78.7 Secondary malignant neoplasm of liver and intrahepatic bile duct; C77.9 Secondary and unspecified malignant neoplasm of lymph node, unspecified; C78.00 Secondary malignant neoplasm of unspecified lung; D62 Acute posthemorrhagic anemia; K81.0 Acute cholecystitis; K56.51 Intestinal adhesions [bands], with partial obstruction; D84.821 Immunodeficiency due to drugs; D68.9 Coagulation defect, unspecified; Z53.31 Laparoscopic surgical procedure converted to open procedure; T45.1X5A Adverse effect of antineoplastic and immunosuppressive drugs, initial encounter
CPT/HCPCS: 71250; 74183; 74270; 74330; 76000; 76700; 80048; 80053; 81003; 81015; 82248; 82533; 82550; 82607; 82728; 82746; 83010; 83540; 83550; 83605; 83615; 83735; 83930; 83935; 84145; 84300; 84443; 84484; 85014; 85018; 85025; 85027; 85045; 85379; 85384; 85610; 86141; 86705; 86706; 86709; 86803; 86850; 86900; 86901; 86920; 87040; 87086; 87340; 87502; 87811; 93005; 93306; 93356; 93975; 96360; 97116; 97162; 97164; 97167; 97530; 99285; A9575; C1769; C2617; J1335; P9016

== ENCOUNTER 2023-11-24 10:32 | Emergency (ER) | payer BC, SELFPAY ==
[2023-11-24 10:37] VITALS: BP 97/71; BMI 26.6
[2023-11-24 11:12] VITALS: BP 108/71
--- NOTE | 2023-11-24 11:15 | ED.GENMED ---
History of Present Illness
General
Chief Complaint: Weakness
Source: patient
Exam Limitations: none
Time Seen by Provider: 11/24/23 10:57
Travel History
Have you had any contact with someone who has COVID-19?: No
Do you have any symptoms of coronavirus? Fever > 100 degrees, chills, cough, shortness of breath, sore throat, loss of taste or smell, muscle aches, or headache?: No
History of Present Illness
History of Present Illness:
53-year-old female with history of stage IV rectal cancer presents with right-sided pain. She notes when she takes deep breaths she notes pain to the right chest. She had a stent placed in her liver several weeks ago. She had also an ostomy
performed. She currently does not have chemotherapy ongoing. She was on a trial which was sick. She has not been able to keep anything down. She feels very dehydrated. She feels very weak. No other complaints at this time
Phy Exam
Physical Exam
Physical Exam:
General: chronically ill appearing female, NAD
HEENT: NC/AT mucosa dry
Heart: Regular rate and rhythm
Lungs: Clear no wheeze or rales
Abdomen is soft ostomy present mildly tender to the lower abdomen. No upper quadrant tenderness.
Extremities: No edema
Skin: Pale
Course
Orders/Labs/Results
Orders:
Orders
11/24/23 11:13
Morphine Sulfate 4 mg IV NOW STA
Ondansetron Injectable [Zofran] 4 mg IV NOW STA
11/24/23 11:14
CT Chest Pe Study Urgent
Comment:
Reason For Exam: right sided pleuritic pain, recent surgery
11/24/23 11:34
Complete Blood Count/With Diff Urgent
Comprehensive Metabolic Panel Urgent
11/24/23 11:49
0.9% Sodium Chloride 1000 ml [Nss] 1,000 ml IV BOLUS
11/24/23 14:17
0.9% Sodium Chloride 1000 ml [Nss] 1,000 ml IV BOLUS
Abnormal Lab Results
11/24/23
11:34
RBC 3.16 L 10^6/uL
(4.20-5.40)
Hgb 8.8 L g/dL
(12.0-16.0)
Hct 26.3 L %
(37.0-47.0)
RDW 16.3 H %
(11.5-14.5)
Abs Immat Gran (auto) 0.1 H 10^3/uL
(0-0.05)
Absolute Neuts (auto) 8.6 H 10^3/uL
(1.4-6.5)
Absolute Lymphs (auto) 0.6 L 10^3/uL
(1.2-3.4)
Absolute Monos (auto) 0.8 H 10^3/uL
(0.1-0.6)
Immature Gran % 0.7 H %
(0-0.5)
Neutrophils % 85.2 H %
(42.2-75.2)
Lymphocytes % 5.6 L %
(20.5-51.1)
Sodium 128 L mmol/L
(135-145)
Chloride 96 L mmol/L
(98-107)
Creatinine 0.5 L mg/dL
(0.6-1.0)
Glucose 149 H mg/dl
(70-99)
Calcium 8.2 L mg/dl
(8.4-10.2)
AST 62 H U/L
(14-36)
Alkaline Phosphatase 382 H U/L
(38-126)
Albumin 2.9 L g/dl
(3.5-5.0)
11/24/23 11:34
11/24/23 11:34
Vital Signs
Initial and Last Documented VS:
Initial Vital Signs
Temp Pulse Resp BP Pulse Ox
97.7 F 110 22 97/71 100
11/24/23 10:37 11/24/23 10:37 11/24/23 10:37 11/24/23 10:37 11/24/23 10:37
Last Documented Vital Signs
Temp Pulse Resp BP Pulse Ox
97.7 F 78 19 99/69 98
11/24/23 10:37 11/24/23 16:30 11/24/23 16:30 11/24/23 12:00 11/24/23 16:30
MDM/Problems Addressed
Differential Diagnosis Includes:
Fatigue right-sided pleuritic pain. Recent surgery. Consider PE. Consider electrolyte abnormality versus anemia. Check labs hydrate treat symptoms and CT PE study pending
*Critical Care Note
Total Time (30-74mins, 75-104mins- exclusive of procedures): Not Applicable
Update Note
Update Note:
Patient reevaluated multiple times received 2 L of fluid feeling little better. Able to tolerate oral fluids now. CT was negative for PE but does show enlarging known metastatic disease in the lungs. Patient made aware of these findings. Wishes
to go home. Recommend close follow-up with her oncology department
ED Attending Note
-
Portions of this chart may have been created with voice recognition software.� Occasional wrong word or��sound alike� substitutions may have occurred due to the inherent limitations of voice recognition software.
Discharge Plan
Departure
Patient Disposition: Home (Routine Discharge)
Date of Disposition: 11/24/23
Time of Disposition: 16:26
Patient with high blood pressure during this ER visit?: No
Discharge Problem:
Acute dehydration
Instructions: Generalized Weakness (DC)
Prescriptions:
No Action
No Current Medications
0
Referrals:
Iris Franco DO [Family Provider] -
Activity Restrictions/Additional Instructions:
Please return here for worsening symptoms otherwise follow-up with your oncology team
Interventions
Interventions:
*Risk Screen - Suicide Last Done: 11/24/23 10:37
*General Assessment Last Done: 11/24/23 11:09
*Neglect/Abuse Screening Last Done: 11/24/23 10:37
ED- Fall Risk Assessment Last Done: 11/24/23 11:09
*ED COVID-19 Vaccine History Last Done: 11/24/23 10:37
*Nursing Disposition Last Done: 11/24/23 16:50
ED- Cardiac Assessment Last Done: 11/24/23 11:09
ED- Neurological Assessment Last Done: 11/24/23 11:09
ED- Pulmonary Assessment Last Done: 11/24/23 11:09
Discharge Date and Time
Discharge Date/Time: 11/24/23 16:51
Print Language: MALIAN
[2023-11-24 11:45] LABS: % Basophils 0.2 % (0-2); % Immature Granulocytes 0.7 % (0-0.5); % Lymphocytes 5.6 % (20.5-51.1); % Monocytes 8.3 % (1.7-9.3); % Neutrophils 85.2 % (42.2-75.2); Absolute Immature Granulocytes 0.1 10^3/uL (0-0.05); Absolute Lymphocytes 0.6 10^3/uL (1.2-3.4); Absolute Monocytes 0.8 10^3/uL (0.1-0.6); Absolute Neutrophils 8.6 10^3/uL (1.4-6.5); Hematocrit 26.3 % (37.0-47.0); Hemoglobin 8.8 g/dL (12.0-16.0); Mean Corp Hgb Conc. 33.5 g/dL (33.0-37.0); Mean Corpuscular Hgb 27.8 pg (27.0-31.0); Mean Corpuscular Volume 83.2 fL (81.0-99.0); Mean Platelet Volume 9.5 fL (7.4-10.4); Nucleated Red Blood Cells % 0 %; Platelet Count 270 10^3/uL (130-400); Red Blood Cell Count 3.16 10^6/uL (4.20-5.40); Red Cell Dist. Width 16.3 % (11.5-14.5); White Blood Cell Count 10.1 10^3/uL (4.8-10.8)
[2023-11-24] MEDS: ZOFRAN 4 MG IV (11:45)
[2023-11-24 12:00] VITALS: BP 99/69
[2023-11-24 12:12] LABS: ALT (SGPT) 22 U/L (0-35); AST (SGOT) 62 U/L (14-36); Albumin 2.9 g/dl (3.5-5.0); Alkaline Phosphatase 382 U/L (38-126); Blood Urea Nitrogen 8 mg/dl (7-17); Calcium 8.2 mg/dl (8.4-10.2); Carbon Dioxide 27 mmol/L (22-30); Chloride 96 mmol/L (98-107); Estimated Creatinine Clearance 103 ml/min; Glucose 149 mg/dl (70-99); Potassium 3.9 mmol/L (3.5-5.1); Sodium 128 mmol/L (135-145); Total Bilirubin 0.9 mg/dl (0.2-1.3); Total Protein 6.3 g/dl (6.3-8.2); eGFR > 60.00
[2023-11-24] MEDS: NSS 1000 IV ×2 (12:20→14:45)
[2023-11-24] MEDS: MORPHINE SULFATE 4 MG IV (13:32)
--- NOTE | 2023-11-24 13:40 | PHANOTE ---
med rec note- patient stated she stopped taking her tablets medications when she started getting sick, but she suppose to be on Synthroid 25mcg daily and Colace 100mg bid
== END 2023-11-24 16:51 | disposition home or self-care (01) ==
LOC: EMR 10:32
PROVIDERS: Physician Assistant; EMERGENCY PHYSICIAN Emergency Medicine; FAMILY PHYSICIAN Family Medicine
DX: E86.0 Dehydration (principal)
CPT/HCPCS: 99285; 96374; 96375; 96361; 71275; 80053; 85025; Q9967